=== PATIENT | female | born 1970 | race Hispanic/Latino ===

== ENCOUNTER 2017-12-19 18:41 | Inpatient (IN) | payer MEDICAID ==
[2017-12-19 18:41] VITALS: BMI 28.7
--- NOTE | 2017-12-19 19:27 | C.PDOC ---
History Of Present Illness 47 year old female, whose PMHx includes Hepatitis C, presents to the ED for evaluation of generalized myalgias, poor appetite, and generalized weakness which began around 1 month ago. Patient also reports a history of Diabetic Neuropathy and states she did not take her Neurontin today. She is also complaining of a sensation of pins and needles to her extremities and notes that her eyes are turning yellow. Patient denies fever, chills, vomiting, hematemesis, bright red blood per rectum, increased bruising. Chief Complaint (Nursing): Weakness/Neurological Deficit History Per: Patient History/Exam Limitations: no limitations Onset/Duration Of Symptoms: Other (1 month ) Current Symptoms Are (Timing): Still Present Additional History Per: Patient Past Medical History Reviewed: Historical Data, Nursing Documentation, Vital Signs Vital Signs: Last Vital Signs Temp 98.4 F 12/20/17 02:45 Pulse 103 H 12/20/17 02:45 Resp 20 12/20/17 02:45 BP 95/56 L 12/20/17 02:45 Pulse Ox 100 12/20/17 01:03 - Medical History PMH: Diabetes, Hepatitis (C) Denies: HIV, Chronic Kidney Disease Surgical History: Cholecystectomy - [facility] Procedures INCIS PERIANAL ABSCESS (04/12/15) VACCINATION NEC (04/12/15) Family History: States: Unknown Family Hx - Social History Hx Alcohol Use: No Hx Substance Use: No - Immunization History Hx Tetanus Toxoid Vaccination: No Hx Influenza Vaccination: No Hx Pneumococcal Vaccination: No Review Of Systems Constitutional: Positive for: Other (loss of appetite) Eyes: Positive for: Other (turning yellow ) Gastrointestinal: Negative for: Vomiting, Hematemesis, Other (bright red blood per rectum ) Musculoskeletal: Positive for: Other (generalized myalgias ) Neurological: Positive for: Other (pins and needles sensation to bilateral extremities ) Physical Exam - Physical Exam Appears: Non-toxic, No Acute Distress Skin: Normal Color, Warm, Dry, No Cyanotic Head: Atraumatic, Normacephalic Eye(s): bilateral: Scleral Icterus Oral Mucosa: Moist Neck: Supple Chest: Symmetrical, No Deformity, No Tenderness Cardiovascular: Rhythm Regular, No Murmur, No JVD, Other (S1 and S2 within normal limits ) Respiratory: Normal Breath Sounds, No Rales, No Rhonchi, No Wheezing Gastrointestinal/Abdominal: Soft, Tenderness (vague, diffuse to upper abdomen ) , No Guarding, No Rebound, No Ascites, No Other (organomegaly ) Extremity: Normal ROM, Capillary Refill (less than 2 seconds ), Other (no edema or clubbing to extremities) Neurological/Psych: Oriented x3, Normal Speech, Normal Cognition, Normal Cranial Nerves (2-12), Other (nonfocal sensorimotor exam is unremarkable ) Additional Physical Exam Comments: [place] coma scale score: 15 ED Course And Treatment - Laboratory Results Result Diagrams: 12/19/17 19:47 12/19/17 21:26 O2 Sat by Pulse Oximetry: 100 (on RA ) Pulse Ox Interpretation: Normal - CT Scan/US CT abdomen/pelvis Other Rad Studies (CT/US): Read By Radiologist, Radiology Report Reviewed CT/US Interpretation: FINDINGS: Lower thorax: Small hiatal hernia. Subsegmental atelectasis at lung bases. ABDOMEN: Liver: Unremarkable. No mass. Gallbladder and bile ducts: Cholecystectomy. Pneumobilia. No ductal dilation. Pancreas: Unremarkable. No mass. No ductal dilation. Spleen: Unremarkable. No splenomegaly. Adrenals: Unremarkable. No mass. Kidneys and ureters: Unremarkable. No solid mass. No hydronephrosis. Stomach and bowel: Unremarkable. No obstruction. Appendix: No findings to suggest acute appendicitis. PELVIS: Bladder: Unremarkable. No mass. Reproductive: 10.3 x 7.4 CM fat containing mass right adnexa, probable ovarian dermoid. Ovarian. lesions of this size are susceptible to torsion. ABDOMEN and PELVIS: Intraperitoneal space: Unremarkable. No free air. No significant fluid collection. Bones/joints: No acute fracture. No dislocation. Soft tissues: Unremarkable. Vasculature: Atherosclerotic vascular disease. No abdominal aortic aneurysm. Lymph nodes: Unremarkable. No enlarged lymph nodes. IMPRESSION: 1. 10.3 x 7.4 CM fat containing mass right adnexa, probable ovarian dermoid. Ovarian lesions of this. size are susceptible to torsion. 2. Cholecystectomy. 3. Pneumobilia. 4. Remainder of findings as above. Thank you for allowing us to participate in the care of your patient. Dictated and Authenticated by: Wilmer Ayon MD. 12/20/2017 12:03 AM Eastern Time ([place] & [place]) - Physician Consult Information Time Consulting Physician Contacted: 23:50 Physician Contacted: Jacklyn Gordon Outcome Of Conversation: patient accepted for admission for pancreatitis and hep C Medical Decision Making Medical Decision Making: Impression: 47 y/o female with chronic hepatitis Plan: * Bloodwork * Neurontin PO * reassess and disposition 22:15 Labs reviewed: Lipase 1170, elevated LFTs and alk phos, Glucose [address] Abodmen/Pelvis Administered IV insulin 23:55 Urine shows (+) leuks, WBC, RBC, yeast Administered IV Rocephin Workup reveals 3 issues.Poorly controled NIDDM, pancreatitis ,UTI and chronic hep C.Will admit Disposition Counseled Patient/Family Regarding: Studies Performed, Diagnosis - Disposition Disposition: HOSPITALIZED Disposition Time: 23:50 Condition: FAIR - POA Present On Arrival: None - Clinical Impression Clinical Impression: Pancreatitis, UTI (urinary tract infection), Hepatitis C - Scribe Statement The provider has reviewed the documentation as recorded by the Scribe (Mary Thomas) Provider Attestation: All medical record entries made by the Scribe were at my direction and personally dictated by me. I have reviewed the chart and agree that the record accurately reflects my personal performance of the history, physical exam, medical decision making, and the department course for this patient. I have also personally directed, reviewed, and agree with the discharge instructions and disposition. Decision To Admit - Pt Status Changed To: Hospital Disposition Of: Inpatient - Admit Certification Admit to Inpatient:: After my assessment, the patient will require hospitalization for at least two midnights. This is because of the severity of symptoms shown, intensity of services needed, and/or the medical risk in this patient being treated as an outpatient. - InPatient: Physician Admission Certification: I certify that this patient requires 2 or more midnights of care for the following reason:: Pancreatitis, Hep C - . Bed Request Type: Regular Patient Diagnosis: Pancreatitis, UTI (urinary tract infection), Hepatitis C
[2017-12-19 19:58] LABS: BASO # 0.1 K/uL (0.0-0.2); EOS # 0.1 K/uL (0.0-0.7); EOS % 1.4 % (0.0-4.0); HEMOGLOBIN 13.9 g/dL (11.0-16.0); LYMPH # 1.8 K/uL (1.0-4.3); LYMPH % 24.7 % (20.0-40.0); MEAN CELL VOLUME 88.6 fL (81.0-99.0); MEAN CORPUSCULAR HEMOGLOBIN 29.1 pg (27.0-31.0); MEAN CORPUSCULAR HGB CONC 32.9 g/dL (33.0-37.0); MEAN PLATELET VOLUME 11.7 fL (7.2-11.7); MONO # 0.6 K/uL (0.0-0.8); MONO % 7.8 % (0.0-10.0); NEUT # 4.7 K/uL (1.8-7.0); NEUT % 64.1 % (50.0-75.0); NRBC % 0.1 % (0.0-2.0); RBC 4.77 Mil/uL (3.80-5.20); WHITE BLOOD COUNT 7.4 K/uL (4.8-10.8)
[2017-12-19 20:36] LABS: INR 0.9; PROTHROMBIN TIME 10.5 SECONDS (9.7-12.2)
[2017-12-19] MEDS ORDERED: Morphine 4 MG/ML VIAL IV ONE (21:42)
[2017-12-19 21:45] LABS: ALB/GLOB RATIO 0.8 (1.0-2.1); ALBUMIN 3.4 g/dL (3.5-5.0); ALT/SGPT 703 U/L (9-52); BLOOD UREA NITROGEN 15 mg/dL (7-17); CALCIUM 8.7 mg/dl (8.6-10.4); GFR AFRICAN-AMERICAN > 60; GFR NON-AFRICAN AMERICAN > 60; LIPASE 1170 U/L (23-300)
[2017-12-19] MEDS ORDERED: Morphine 4 MG/ML VIAL ONE (21:50)
[2017-12-19 21:55] LABS: AST/SGOT 753 U/L (14-36)
[2017-12-19] MEDS ORDERED: (Novolin R) Insulin Human Regular 100 units/ml vial IV ONE (22:02)
[2017-12-19] MEDS ORDERED: (Novolin R) Insulin Human Regular 100 units/ml vial ONE (22:06)
[2017-12-19] MEDS ORDERED: Iohexol 350mg/ml 100 ML ONE (22:50)
[2017-12-19 23:10] LABS: HCG,QUALITATIVE URINE NEGATIVE (NEGATIVE)
[2017-12-19 23:21] LABS: SQUAMOUS EPITHIAL 11 /hpf (0-5); URINE BILIRUBIN NEGATIVE (NEGATIVE); URINE BLOOD 1+ (NEGATIVE); URINE CLARITY Turbid (Clear); URINE COLOR Amber (YELLOW); URINE GLUCOSE (UA) 3+ mg/dL (Normal); URINE LEUKOCYTE ESTERASE 3+ Leu/uL (Negative); URINE PROTEIN 1+ mg/dL (NEGATIVE)
[2017-12-19] MEDS ORDERED: cefTRIAXone IV 1 gm in Dextros 50 ML IVPB ONE (23:54)
--- NOTE | 2017-12-20 00:04 | CT ---
EXAM: CT Abdomen and Pelvis With Intravenous Contrast CLINICAL HISTORY: 47 years old, female; Pain; Abdominal pain; Prior surgery; Patient HX: 04-12-15 prior sent TECHNIQUE: Axial computed tomography images of the abdomen and pelvis with intravenous contrast. All CT scans at this facility use one or more dose reduction techniques, viz.: automated exposure control; ma/kV adjustment per patient size (including targeted exams where dose is matched to indication; i.e. head); or iterative reconstruction technique. Coronal and sagittal reformatted images were created and reviewed. CONTRAST: 100 mL of [id number] administered intravenously. COMPARISON: No relevant prior studies available. FINDINGS: Lower thorax: Small hiatal hernia. Subsegmental atelectasis at lung bases. ABDOMEN: Liver: Unremarkable. No mass. Gallbladder and bile ducts: Cholecystectomy. Pneumobilia. No ductal dilation. Pancreas: Unremarkable. No mass. No ductal dilation. Spleen: Unremarkable. No splenomegaly. Adrenals: Unremarkable. No mass. Kidneys and ureters: Unremarkable. No solid mass. No hydronephrosis. Stomach and bowel: Unremarkable. No obstruction. Appendix: No findings to suggest acute appendicitis. PELVIS: Bladder: Unremarkable. No mass. Reproductive: 10.3 x 7.4 CM fat containing mass right adnexa, probable ovarian dermoid. Ovarian lesions of this size are susceptible to torsion. ABDOMEN and PELVIS: Intraperitoneal space: Unremarkable. No free air. No significant fluid collection. Bones/joints: No acute fracture. No dislocation. Soft tissues: Unremarkable. Vasculature: Atherosclerotic vascular disease. No abdominal aortic aneurysm. Lymph nodes: Unremarkable. No enlarged lymph nodes. IMPRESSION: 1. 10.3 x 7.4 CM fat containing mass right adnexa, probable ovarian dermoid. Ovarian lesions of this size are susceptible to torsion. 2. Cholecystectomy. 3. Pneumobilia. 4. Remainder of findings as above.
[2017-12-20] MEDS ORDERED: Sodium Chloride 0.9% 1,000 ML IV SCH ×2 (02:30→08:05)
[2017-12-20 02:46] VITALS: RESP 20
[2017-12-20] MEDS: (Novolog) Insulin Aspart, Recombinant 100 u/ml 10 ml vial SC SCH ×4 (07:30→21:38)
[2017-12-20 08:05] LABS: HEMOGLOBIN 12.3 g/dL (11.0-16.0); MEAN CELL VOLUME 87.8 fL (81.0-99.0); MEAN CORPUSCULAR HEMOGLOBIN 29.7 pg (27.0-31.0); MEAN CORPUSCULAR HGB CONC 33.9 g/dL (33.0-37.0); MEAN PLATELET VOLUME 11.5 fL (7.2-11.7); RBC 4.13 Mil/uL (3.80-5.20); RED CELL DISTRIBUTION WIDTH 15.9 % (11.5-14.5); WHITE BLOOD COUNT 6.9 K/uL (4.8-10.8)
[2017-12-20 08:43] LABS: ALB/GLOB RATIO 0.8 (1.0-2.1); ALBUMIN 2.9 g/dL (3.5-5.0); ALT/SGPT 598 U/L (9-52); AMYLASE 137 U/L (30-110); AST/SGOT 706 U/L (14-36); BLOOD UREA NITROGEN 17 mg/dL (7-17); CALCIUM 7.8 mg/dl (8.6-10.4); GFR AFRICAN-AMERICAN > 60; GFR NON-AFRICAN AMERICAN > 60; LIPASE 674 U/L (23-300)
[2017-12-20 09:41] LABS: LYMPH # 2.1 K/uL (1.0-4.3); MONO # 0.4 K/uL (0.0-0.8); NEUT # 4.2 K/uL (1.8-7.0)
[2017-12-20 09:42] LABS: BASO # 0.1 K/uL (0.0-0.2); EOS # 0.2 K/uL (0.0-0.7)
--- NOTE | 2017-12-20 10:34 | CP.PCM.CON ---
<Kanchan Thomas - Last Filed: 12/20/17 12:59> History of Present Illness - History of Present Illness History of Present Illness: PGY4 Initial GI Consult Note Sierra Schroeder is a 47F w/ hx of fibromyalgia, Hep C?, Lap Radha, and DM who presented to the ED with complaints of abd pain. Pt states that her pain started 1 month prior and had progressively worsened. She had a decreased appetite. She noted loosing 10lbs in the last few months. She also started to notice that her eyes and skin were turning yellow. She notes that her abd pain is generalize and diffuse. She states that her pain was 10 out of 10 yesterday. She denies any fever, chills or diaphoresis. Some aggravating factors include food, but she denies any alleviating factors. She has a hx of chronic constipation and states that she has a BM every 1 week. Her last BM was 3 days ago. Denies any blood or melena. She notes that she previously had jaundice 15 years ago due to choledocalithiasis and subsequently had ERCP and Lap radha. She notes also being admitted again for jaundice for Hep C?. she was referred to the [facility] for liver eval and was deemed not to have active hep C (as per pt). PMHx: DM, Fibromyalgia, Hep C?, PSHx: Lap Radha Social hx: denies any illicit drugs or etoh use; + 1/2 PPD for 10+ years Family hx: Aunt colon cancer 80, CAD, DM Endo hx: ERCP? ROS: 12 point ROS conducted, neg other than above Past Patient History - Past Medical History & Family History Past Medical History?: Yes - Past Social History Smoking Status: Light Smoker < 10 Cigarettes Daily - CARDIAC Hx Cardiac Disorders: No - PULMONARY Hx Respiratory Disorders: No - NEUROLOGICAL Hx Neurological Disorder: Yes (Pt reports she sees a neurologist for 'chronic pain') - HEENT Hx HEENT Problems: No - RENAL Hx Chronic Kidney Disease: No - ENDOCRINE/METABOLIC Hx Diabetes Mellitus Type 2: Yes - HEMATOLOGICAL/ONCOLOGICAL Hx Human Immunodeficiency Virus (HIV): No - INTEGUMENTARY Hx Dermatological Problems: No - MUSCULOSKELETAL/RHEUMATOLOGICAL Hx Musculoskeletal Disorders: No Hx Falls: Yes - GASTROINTESTINAL Hx Gastrointestinal Disorders: No - GENITOURINARY/GYNECOLOGICAL Hx Genitourinary Disorders: No Other/Comment: fibroids - PSYCHIATRIC Hx Substance Use: No - SURGICAL HISTORY Hx Cholecystectomy: Yes - ANESTHESIA Hx Anesthesia: Yes Hx Anesthesia Reactions: No Hx Malignant Hyperthermia: No Meds Allergies/Adverse Reactions: Allergies Allergy/AdvReac Type Severity Reaction Status Date / Time hydromorphone [From Dilaudid] Allergy SHORTNESS Verified 12/19/17 18:53 OF BREATH - Medications Medications: Current Medications Gabapentin (Neurontin) 1,800 mg PO TID [facility] Sodium Chloride (Sodium Chloride 0.9%) 1,000 mls @ 80 mls/hr IV .[id number] [facility] Insulin Aspart (Novolog) 0 unit SC ACHS EDMUND PRN Reason: Protocol Morphine Sulfate (Morphine) 0.5 mg IVP Q4 PRN PRN Reason: Pain, moderate (4-7) Last Admin: 12/20/17 02:35 Dose: 0.5 mg Pantoprazole Sodium (Protonix Inj) 40 mg IVP DAILY EDMUND Physical Exam - Constitutional Appears: Well, No Acute Distress - Head Exam Head Exam: ATRAUMATIC, NORMOCEPHALIC - Eye Exam Eye Exam: Scleral icterus - ENT Exam ENT Exam: Mucous Membranes Moist, Normal Exam - Neck Exam Neck exam: Positive for: Normal Inspection - Respiratory Exam Respiratory Exam: Clear to Auscultation Bilateral, NORMAL BREATHING PATTERN. absent: Rales, Rhonchi, Wheezes, Respiratory Distress - Cardiovascular Exam Cardiovascular Exam: REGULAR RHYTHM, +S1, +S2 - GI/Abdominal Exam GI & Abdominal Exam: Normal Bowel Sounds, Soft, Tenderness. absent: Distended, Firm, Guarding, Hernia - Extremities Exam Extremities exam: Negative for: joint swelling, pedal edema - Neurological Exam Neurological exam: Alert, Oriented x3 - Psychiatric Exam Psychiatric exam: Normal Affect, Normal Mood - Skin Additional comments: juandiced Results - Vital Signs Recent Vital Signs: Last Vital Signs Temp 98.6 F 12/20/17 08:01 Pulse 103 H 12/20/17 08:01 Resp 20 12/20/17 08:01 BP 98/61 L 12/20/17 08:01 Pulse Ox 97 12/20/17 08:01 - Labs Result Diagrams: 12/20/17 07:20 12/20/17 07:20 Labs: Laboratory Results - last 24 hr 12/19/17 12/19/17 12/19/17 19:47 19:47 20:20 WBC 7.4 RBC 4.77 Hgb 13.9 Hct 42.3 MCV 88.6 MCH 29.1 MCHC 32.9 L RDW 16.0 H Plt Count 160 MPV 11.7 Neut % (Auto) 64.1 Lymph % (Auto) 24.7 [place] % (Auto) 7.8 Eos % (Auto) 1.4 Baso % (Auto) 2.0 Neut # (Auto) 4.7 Lymph # (Auto) 1.8 [place] # (Auto) 0.6 Eos # (Auto) 0.1 Baso # (Auto) 0.1 PT 10.5 INR 0.9 APTT 35 H Sodium Potassium Chloride Carbon Dioxide Anion Gap BUN Creatinine Est GFR ( Amer) Est GFR (Non-Af Amer) POC Glucose (mg/dL) Random Glucose Calcium Total Bilirubin AST ALT Alkaline Phosphatase Ammonia 38 H Total Protein Albumin Globulin Albumin/Globulin Ratio Amylase Lipase Urine Color Urine Clarity Urine pH Ur Specific Lorenzo Urine Protein Urine Glucose (UA) Urine Ketones Urine Blood Urine Nitrate Urine Bilirubin Urine Urobilinogen Ur Leukocyte Esterase Urine WBC (Auto) Urine RBC (Auto) Ur Squamous Epith Cells Urine Yeast (Budding) Urine HCG, Qual 12/19/17 12/19/17 12/19/17 21:26 23:06 23:12 WBC RBC Hgb Hct MCV MCH MCHC RDW Plt Count MPV Neut % (Auto) Lymph % (Auto) [place] % (Auto) Eos % (Auto) Baso % (Auto) Neut # (Auto) Lymph # (Auto) [place] # (Auto) Eos # (Auto) Baso # (Auto) PT INR APTT Sodium 136 Potassium 4.1 Chloride 97 L Carbon Dioxide 24 Anion Gap 19 BUN 15 Creatinine 0.7 Est GFR ( Amer) > 60 Est GFR (Non-Af Amer) > 60 POC Glucose (mg/dL) 181 H Random Glucose 400 H* Calcium 8.7 Total Bilirubin 7.7 H AST 753 H ALT 703 H Alkaline Phosphatase 707 H Ammonia Total Protein 7.6 Albumin 3.4 L Globulin 4.2 H Albumin/Globulin Ratio 0.8 L Amylase Lipase 1170 H Urine Color Jeanne Urine Clarity Turbid Urine pH 5.0 Ur Specific Lorenzo 1.025 Urine Protein 1+ H Urine Glucose (UA) 3+ H Urine Ketones Negative Urine Blood 1+ H Urine Nitrate Negative Urine Bilirubin Negative Urine Urobilinogen 4.0 H Ur Leukocyte Esterase 3+ H Urine WBC (Auto) 1050 H Urine RBC (Auto) 903 H Ur Squamous Epith Cells 11 H Urine Yeast (Budding) Many H Urine HCG, Qual Negative 12/20/17 12/20/17 12/20/17 05:43 07:20 07:20 WBC 6.9 RBC 4.13 Hgb 12.3 Hct 36.2 MCV 87.8 MCH 29.7 MCHC 33.9 RDW 15.9 H Plt Count 146 MPV 11.5 Neut % (Auto) 61.0 Lymph % (Auto) 30.0 [place] % (Auto) 5.0 Eos % (Auto) 3.0 Baso % (Auto) 1.0 Neut # (Auto) 4.2 Lymph # (Auto) 2.1 [place] # (Auto) 0.4 Eos # (Auto) 0.2 Baso # (Auto) 0.1 PT INR APTT Sodium 141 Potassium 3.9 Chloride 104 Carbon Dioxide 19 L Anion Gap 21 H BUN 17 Creatinine 0.6 L Est GFR ( Amer) > 60 Est GFR (Non-Af Amer) > 60 POC Glucose (mg/dL) 133 H Random Glucose 120 H Calcium 7.8 L Total Bilirubin 6.3 H AST 706 H ALT 598 H Alkaline Phosphatase 551 H D Ammonia Total Protein 6.4 Albumin 2.9 L Globulin 3.5 Albumin/Globulin Ratio 0.8 L Amylase 137 H Lipase 674 H Urine Color Urine Clarity Urine pH Ur Specific Lorenzo Urine Protein Urine Glucose (UA) Urine Ketones Urine Blood Urine Nitrate Urine Bilirubin Urine Urobilinogen Ur Leukocyte Esterase Urine WBC (Auto) Urine RBC (Auto) Ur Squamous Epith Cells Urine Yeast (Budding) Urine HCG, Qual Assessment & Plan - Assessment and Plan (Free Text) Assessment: Alexandre Esquivel is a 47F w/ hx of Hep c?, fibromyalgia, DM who presents to the ER with complaints of abd pain and jaundice Acute Pancreatitis, r/o TG, IGG4, gallstone Abd pain Juandice Elevated LFTS, etiology unknown; r/o viral, autoimmune, CBD stone, pancreatic lesion Constipation Plan: -CT reviewed and did not reveal and pancreatic lesions -will get an MRCP -Will send for viral hepatitis, autoimmune markers -NPO for now -EUS/ERCP today -continue IV fluids -start on miralax BID -will continue to follow -will get TG, igg4 -start fluids at 200ml/hr -pain management as per primary team D/W Dr. De La O <Tawanda De La O - Last Filed: 12/20/17 16:15> Meds - Medications Medications: Current Medications Gabapentin (Neurontin) 1,600 mg PO BID EDMUND Sodium Chloride (Sodium Chloride 0.9%) 1,000 mls @ 80 mls/hr IV .[id number] EDMUND Lactated Ringer's (Lactated Ringer's) 1,000 mls @ 200 mls/hr IV .Q5H EDMUND Insulin Aspart (Novolog) 0 unit SC ACHS EDMUND PRN Reason: Protocol Morphine Sulfate (Morphine) 0.5 mg IVP Q4 PRN PRN Reason: Pain, moderate (4-7) Last Admin: 12/20/17 11:02 Dose: 0.5 mg Morphine Sulfate (Morphine) 1 mg IVP Q10M PRN PRN Reason: Pain, moderate (4-7) Stop: 12/20/17 16:42 Last Admin: 12/20/17 15:00 Dose: 1 mg Ondansetron HCl (Zofran Inj) 4 mg IVP ONCE PRN PRN Reason: Nausea/Vomiting Stop: 12/20/17 16:42 Last Admin: 12/20/17 15:01 Dose: 4 mg Pantoprazole Sodium (Protonix Inj) 40 mg IVP DAILY [facility] Last Admin: 12/20/17 10:50 Dose: 40 mg Results - Vital Signs Recent Vital Signs: Last Vital Signs Temp 97.8 F 12/20/17 15:00 Pulse 131 H 12/20/17 15:35 Resp 20 12/20/17 15:35 BP 118/64 12/20/17 15:35 Pulse Ox 99 12/20/17 15:35 - Labs Result Diagrams: 12/20/17 07:20 12/20/17 07:20 Labs: Laboratory Results - last 24 hr 12/19/17 12/19/17 12/19/17 19:47 19:47 20:20 WBC 7.4 RBC 4.77 Hgb 13.9 Hct 42.3 MCV 88.6 MCH 29.1 MCHC 32.9 L RDW 16.0 H Plt Count 160 MPV 11.7 Neut % (Auto) 64.1 Lymph % (Auto) 24.7 [place] % (Auto) 7.8 Eos % (Auto) 1.4 Baso % (Auto) 2.0 Neut # (Auto) 4.7 Lymph # (Auto) 1.8 [place] # (Auto) 0.6 Eos # (Auto) 0.1 Baso # (Auto) 0.1 PT 10.5 INR 0.9 APTT 35 H Sodium Potassium Chloride Carbon Dioxide Anion Gap BUN Creatinine Est GFR ( Amer) Est GFR (Non-Af Amer) POC Glucose (mg/dL) Random Glucose Calcium Total Bilirubin AST ALT Alkaline Phosphatase Ammonia 38 H Total Protein Albumin Globulin Albumin/Globulin Ratio Amylase Lipase Urine Color Urine Clarity Urine pH Ur Specific Lorenzo Urine Protein Urine Glucose (UA) Urine Ketones Urine Blood Urine Nitrate Urine Bilirubin Urine Urobilinogen Ur Leukocyte Esterase Urine WBC (Auto) Urine RBC (Auto) Ur Squamous Epith Cells Urine Yeast (Budding) Urine HCG, Qual IgG Hepatitis A IgM Ab Hep Bs Antigen Hep B Core IgM Ab Hepatitis C Antibody 12/19/17 12/19/17 12/19/17 21:26 23:06 23:12 WBC RBC Hgb Hct MCV MCH MCHC RDW Plt Count MPV Neut % (Auto) Lymph % (Auto) [place] % (Auto) Eos % (Auto) Baso % (Auto) Neut # (Auto) Lymph # (Auto) [place] # (Auto) Eos # (Auto) Baso # (Auto) PT INR APTT Sodium 136 Potassium 4.1 Chloride 97 L Carbon Dioxide 24 Anion Gap 19 BUN 15 Creatinine 0.7 Est GFR ( Amer) > 60 Est GFR (Non-Af Amer) > 60 POC Glucose (mg/dL) 181 H Random Glucose 400 H* Calcium 8.7 Total Bilirubin 7.7 H AST 753 H ALT 703 H Alkaline Phosphatase 707 H Ammonia Total Protein 7.6 Albumin 3.4 L Globulin 4.2 H Albumin/Globulin Ratio 0.8 L Amylase Lipase 1170 H Urine Color Jeanne Urine Clarity Turbid Urine pH 5.0 Ur Specific Lorenzo 1.025 Urine Protein 1+ H Urine Glucose (UA) 3+ H Urine Ketones Negative Urine Blood 1+ H Urine Nitrate Negative Urine Bilirubin Negative Urine Urobilinogen 4.0 H Ur Leukocyte Esterase 3+ H Urine WBC (Auto) 1050 H Urine RBC (Auto) 903 H Ur Squamous Epith Cells 11 H Urine Yeast (Budding) Many H Urine HCG, Qual Negative IgG Hepatitis A IgM Ab Hep Bs Antigen Hep B Core IgM Ab Hepatitis C Antibody 12/20/17 12/20/17 12/20/17 05:43 07:20 07:20 WBC 6.9 RBC 4.13 Hgb 12.3 Hct 36.2 MCV 87.8 MCH 29.7 MCHC 33.9 RDW 15.9 H Plt Count 146 MPV 11.5 Neut % (Auto) 61.0 Lymph % (Auto) 30.0 [place] % (Auto) 5.0 Eos % (Auto) 3.0 Baso % (Auto) 1.0 Neut # (Auto) 4.2 Lymph # (Auto) 2.1 [place] # (Auto) 0.4 Eos # (Auto) 0.2 Baso # (Auto) 0.1 PT INR APTT Sodium 141 Potassium 3.9 Chloride 104 Carbon Dioxide 19 L Anion Gap 21 H BUN 17 Creatinine 0.6 L Est GFR ( Amer) > 60 Est GFR (Non-Af Amer) > 60 POC Glucose (mg/dL) 133 H Random Glucose 120 H Calcium 7.8 L Total Bilirubin 6.3 H AST 706 H ALT 598 H Alkaline Phosphatase 551 H D Ammonia Total Protein 6.4 Albumin 2.9 L Globulin 3.5 Albumin/Globulin Ratio 0.8 L Amylase 137 H Lipase 674 H Urine Color Urine Clarity Urine pH Ur Specific Lorenzo Urine Protein Urine Glucose (UA) Urine Ketones Urine Blood Urine Nitrate Urine Bilirubin Urine Urobilinogen Ur Leukocyte Esterase Urine WBC (Auto) Urine RBC (Auto) Ur Squamous Epith Cells Urine Yeast (Budding) Urine HCG, Qual IgG Hepatitis A IgM Ab Hep Bs Antigen Hep B Core IgM Ab Hepatitis C Antibody 12/20/17 12/20/17 12/20/17 09:55 10:47 10:47 WBC RBC Hgb Hct MCV MCH MCHC RDW Plt Count MPV Neut % (Auto) Lymph % (Auto) [place] % (Auto) Eos % (Auto) Baso % (Auto) Neut # (Auto) Lymph # (Auto) [place] # (Auto) Eos # (Auto) Baso # (Auto) PT INR APTT Sodium Potassium Chloride Carbon Dioxide Anion Gap BUN Creatinine Est GFR ( Amer) Est GFR (Non-Af Amer) POC Glucose (mg/dL) Random Glucose Calcium Total Bilirubin AST ALT Alkaline Phosphatase Ammonia Total Protein Albumin Globulin Albumin/Globulin Ratio Amylase Lipase Urine Color Urine Clarity Urine pH Ur Specific Lorenzo Urine Protein Urine Glucose (UA) Urine Ketones Urine Blood Urine Nitrate Urine Bilirubin Urine Urobilinogen Ur Leukocyte Esterase Urine WBC (Auto) Urine RBC (Auto) Ur Squamous Epith Cells Urine Yeast (Budding) Urine HCG, Qual IgG 1375.8 Hepatitis A IgM Ab Negative Hep Bs Antigen Negative Hep B Core IgM Ab Negative Negative Hepatitis C Antibody Reactive 12/20/17 11:03 WBC RBC Hgb Hct MCV MCH MCHC RDW Plt Count MPV Neut % (Auto) Lymph % (Auto) [place] % (Auto) Eos % (Auto) Baso % (Auto) Neut # (Auto) Lymph # (Auto) [place] # (Auto) Eos # (Auto) Baso # (Auto) PT INR APTT Sodium Potassium Chloride Carbon Dioxide Anion Gap BUN Creatinine Est GFR ( Amer) Est GFR (Non-Af Amer) POC Glucose (mg/dL) 126 H Random Glucose Calcium Total Bilirubin AST ALT Alkaline Phosphatase Ammonia Total Protein Albumin Globulin Albumin/Globulin Ratio Amylase Lipase Urine Color Urine Clarity Urine pH Ur Specific Lorenzo Urine Protein Urine Glucose (UA) Urine Ketones Urine Blood Urine Nitrate Urine Bilirubin Urine Urobilinogen Ur Leukocyte Esterase Urine WBC (Auto) Urine RBC (Auto) Ur Squamous Epith Cells Urine Yeast (Budding) Urine HCG, Qual IgG Hepatitis A IgM Ab Hep Bs Antigen Hep B Core IgM Ab Hepatitis C Antibody Attending/Attestation - Attestation I have personally seen and examined this patient.: Yes I have fully participated in the care of the patient.: Yes I have reviewed all pertinent clinical information: Yes Notes (Text): 12/20/17 12:14 47 year old female with h/o hep c, gallstones, cholecystectomy, ercp admitted with abdominal pain, jaundice. recommend egd/eus/ercp today. recommend aggressive iv hydration for acute pancreatitis. eval for chronic liver disease as well.
[2017-12-20 11:41] LABS: HEPATITIS B SURFACE AG Negative (NEGATIVE)
[2017-12-20 11:46] LABS: HEPATITIS A IGM NEGATIVE (NEGATIVE); HEPATITIS B CORE AB NEGATIVE (NEGATIVE)
[2017-12-20] MEDS ORDERED: Simethicone 40 mg/0.6 ml Liquid (30 ml) ONE (13:11)
[2017-12-20] MEDS ORDERED: Glucagon Recombinant 1 mg Inj ONE ×3 (13:11→13:15)
[2017-12-20] MEDS ORDERED: Iohexol 240 (50 ml) ONE (13:13)
[2017-12-20] MEDS ORDERED: Indomethacin 50 MG Suppository PR ONE (13:14)
[2017-12-20 13:29] LABS: HEPATITIS C ANTIBODY REACTIVE (NEGATIVE)
[2017-12-20] MEDS ORDERED: Lactated Ringer's 1,000 ML IV ONE (13:45)
[2017-12-20] MEDS ORDERED: Propofol 10 mg/ml Inj (20 ML) ONE (13:50)
[2017-12-20] MEDS ORDERED: Midazolam 2 MG/2 ML VIAL ONE (13:51)
[2017-12-20] MEDS ORDERED: CEFTRIAXONE IVPB ONE (14:14)
[2017-12-20] MEDS ORDERED: Rocuronium 10 mg/ml (5 ml) ONE (14:22)
[2017-12-20] MEDS ORDERED: Succinylcholine Chloride 20 mg/ml Syr (5 ml) IV ONE (14:22)
--- NOTE | 2017-12-20 15:29 | CP.PCM.CON ---
History of Present Illness - History of Present Illness History of Present Illness: went for endoscopy tolerated well c/o abd pain afebrile at present work up in progress 47F w/ hx of fibromyalgia, Hep C?, Lap Radha, and DM who presented to the ED with complaints of abd pain. Pt states that her pain started 1 month prior and had progressively worsened. She had a decreased appetite. She noted loosing 10lbs in the last few months. She also started to notice that her eyes and skin were turning yellow. She notes that her abd pain is generalize and diffuse. PMHx: DM, Fibromyalgia, Hep C?, PSHx: Lap Radha Social hx: denies any illicit drugs or etoh use; + 1/2 PPD for 10+ years Family hx: Aunt colon cancer 80, CAD, DM Endo hx: ERCP? ' Review of Systems - Constitutional Constitutional: As Per HPI - EENT Eyes: absent: As Per HPI, Blind Spots, Blurred Vision, Change in Vision, Decreased Night Vision, Diplopia, Discharge, Dry Eye, Exophthalmos, Floaters, Irritation, Itchy Eyes, Loss of Peripheral Vision, Pain, Photophobia, Requires Corrective Lenses, Sees Flashes, Spots in Vision, Tunnel Vision, Other Visual Disturbances, Loss of Vision, Other Ears: absent: As Per HPI, Decreased Hearing, Ear Discharge, Ear Pain, Tinnitus, Abnormal Hearing, Disequilibrium, Dizziness, Other Nose/Mouth/Throat: absent: As Per HPI, Epistaxis, Nasal Congestion, Nasal Discharge, Nasal Obstruction, Nasal Trauma, Nose Pain, Post Nasal Drip, Sinus Pain, Sinus Pressure, Bleeding Gums, Change in Voice, Dental Pain, Dry Mouth, Dysphagia, Halitosis, Hoarsness, Lip Swelling, Mouth Lesions, Mouth Pain, Odynophagia, Sore Throat, Throat Swelling, Tongue Swelling, Facial Pain, Neck Pain, Neck Mass, Other - Breasts Breasts: absent: As Per HPI, Change in Shape, Mass, Pain, Nipple Discharge, Nipple Inversion, Skin Changes, Swelling, Other - Cardiovascular Cardiovascular: absent: As Per HPI, Acrocyanosis, Chest Pain, Chest Pain at Rest , Chest Pain with Activity, Claudication, Diaphoresis, Dyspnea, Dyspnea on Exertion, Edema, Irregular Heart Rhythm, Pain Radiating to Arm/Neck/Jaw, Leg Edema, Leg Ulcers, Lightheadedness, Orthopnea, Palpitations, Paroxysmal Nocturnal Dyspnea, Pedal Edema, Radiating Pain, Rapid Heart Rate, Slow Heart Rate, Syncope, Other - Respiratory Respiratory: absent: As Per HPI, Cough, Dyspnea, Hemoptysis, Dyspnea on Exertion , Wheezing, Snoring, Stridor, Pain on Inspiration, Chest Congestion, Excessive Mucous Production, Change in Mucous Color, Pain with Coughing, Other - Gastrointestinal Gastrointestinal: As Per HPI - Genitourinary Genitourinary: As Per HPI. absent: Change in Urinary Stream, Difficulty Urinating, Dysuria, Flank Pain, Hematuria, Pyuria, Nocturia, Urinary Incontinence, Urinary Frequency, Urinary Hesitance, Urinary Urgency, Voiding Freq/Small Amts, Freq UTI, Hx Renal/Bladder Calculi, Hx /Renal Surgery, Bladder Distension, Other - Reproductive: Female Reproductive:Female: absent: As Per HPI, Amenorrhea, Amenorrhea/ Control, Currently Menstual, Cycle <21 Days, Cycle >35 Days, Cycle Variable, Menses 1-7 Days, Menses >/= 8 Days, Menses Variable, Cycle > 4 Weeks Between, No Menses for 6 Months, Heavy Menses, Light Menses, Normal Menses, Spotting Between Cycles , S/P Hysterectomy, Menopausal, Post Menopausal, Premenarche, Abnormal Vaginal Bleeding, Dysmenorrhea, Dyspareunia, Genital Lesions, Genital Pruritis, Pelvic Pain, Prolapse Symptoms, Sexual Dysfunction, Vaginal Discharge, Vaginal Dryness , Vaginal Odor, Vaginal Pruritis, Other - Menstruation Menstruation: absent: As Per HPI, Amenorrhea, Amenorrhea/ Control, Currently Menstual, Cycle <21 Days, Cycle >35 Days, Cycle Variable, Menses 1-7 Days, Menses >/= 8 Days, Menses Variable, Cycle > 4 Weeks Between, No Menses for 6 Months, Heavy Menses, Light Menses, Normal Menses, Spotting Between Cycles , S/P Hysterectomy, Menopausal, Post Menopausal, Premenarche, Abnormal Vaginal Bleeding, Dysmenorrhea, Other - Musculoskeletal Musculoskeletal: absent: As Per HPI, Abnormal Gait, Arthralgias, Atrophy, Back Pain, Deformity, Joint Swelling, Limited Range of Motion, Loss of Height, Muscle Cramps, Muscle Weakness, Myalgias, Neck Pain, Numbness, Radiating Pain into Limb, Stiffness, Tingling, Other - Integumentary Integumentary: absent: As Per HPI, Acne, Alopecia, Bleeding Lesions, Change in Hair, Change in Nails, Change in Pigmentation, Changing Lesions, Dry Skin, Erythema, Furuncle, Hirsutism, Lesions, New Lesions, Non-Healing Lesions, Photosensitivity, Pruritus, Rash, Skin Pain, Skin Ulcer, Sores, Striae, Swelling , Unusual Bruising, Wounds, Jaundice, Other - Neurological Neurological: absent: As Per HPI, Abnormal Gait, Abnormal Hearing, Abnormal Movements, Abnormal Speech, Behavioral Changes, Burning Sensations, Confusion, Convulsions, Disequilibrium, Dizziness, Numbness, Focal Weakness, Frequent Falls , Headaches, Lack of Coordination, Loss of Vision, Memory Loss, Paresthesias, Radicular Pain, Restless Legs, Sensory Deficit, Syncope, Tingling, Tremor, Vertigo, Weakness, Other Visual Disturbances, Other - Psychiatric Psychiatric: absent: As Per HPI, Abnormal Sleep Pattern, Anhedonia, Anxiety, Auditory Hallucinations, Behavioral Changes, Change in Appetite, Change in Libido, Confusion, Depression, Difficulty Concentrating, Hallucinations, Homicidal Ideation, Hopelessness, Irritability, Memory Loss, Mood Swings, Panic Attacks, Paranoia, Suicidal Ideation, Visual Hallucinations, Tactile Hallucinations, Other - Endocrine Endocrine: absent: As Per HPI, Change in Body Appearance, Change in Libido, Cold Intolorance, Deepening of Voice, Excessive Sweating, Fatigue, Flushing, Heat Intolorance, Increase in Ring/Shoe/Hat Size, Palpitations, Polydipsia, Polyphagia, Polyuria, Other - Hematologic/Lymphatic Hematologic: absent: As Per HPI, Easy Bleeding, Easy Bruising, Lymphadenopathy, Other Past Patient History - Past Medical History & Family History Past Medical History?: Yes - Past Social History Smoking Status: Light Smoker < 10 Cigarettes Daily - CARDIAC Hx Cardiac Disorders: No - PULMONARY Hx Respiratory Disorders: No - NEUROLOGICAL Hx Neurological Disorder: Yes (Pt reports she sees a neurologist for 'chronic pain') - HEENT Hx HEENT Problems: No - RENAL Hx Chronic Kidney Disease: No - ENDOCRINE/METABOLIC Hx Diabetes Mellitus Type 2: Yes - HEMATOLOGICAL/ONCOLOGICAL Hx Human Immunodeficiency Virus (HIV): No - INTEGUMENTARY Hx Dermatological Problems: No - MUSCULOSKELETAL/RHEUMATOLOGICAL Hx Musculoskeletal Disorders: No Hx Falls: Yes - GASTROINTESTINAL Hx Gastrointestinal Disorders: No - GENITOURINARY/GYNECOLOGICAL Hx Genitourinary Disorders: No Other/Comment: fibroids - PSYCHIATRIC Hx Substance Use: No - SURGICAL HISTORY Hx Cholecystectomy: Yes - ANESTHESIA Hx Anesthesia: Yes Hx Anesthesia Reactions: No Hx Malignant Hyperthermia: No Meds Allergies/Adverse Reactions: Allergies Allergy/AdvReac Type Severity Reaction Status Date / Time hydromorphone [From Dilaudid] Allergy SHORTNESS Verified 12/19/17 18:53 OF BREATH - Medications Medications: Current Medications Gabapentin (Neurontin) 1,600 mg PO BID [facility] Sodium Chloride (Sodium Chloride 0.9%) 1,000 mls @ 80 mls/hr IV .[id number] Lactated Ringer's (Lactated Ringer's) 1,000 mls @ 200 mls/hr IV .Q5H [facility] Insulin Aspart (Novolog) 0 unit SC ACHS [facility]MUN[facility] PRN Reason: Protocol Morphine Sulfate (Morphine) 0.5 mg IVP Q4 PRN PRN Reason: Pain, moderate (4-7) Last Admin: 12/20/17 11:02 Dose: 0.5 mg Morphine Sulfate (Morphine) 1 mg IVP Q10M PRN PRN Reason: Pain, moderate (4-7) Stop: 12/20/17 16:42 Last Admin: 12/20/17 15:00 Dose: 1 mg Ondansetron HCl (Zofran Inj) 4 mg IVP ONCE PRN PRN Reason: Nausea/Vomiting Stop: 12/20/17 16:42 Last Admin: 12/20/17 15:01 Dose: 4 mg Pantoprazole Sodium (Protonix Inj) 40 mg IVP DAILY [facility] Last Admin: 12/20/17 10:50 Dose: 40 mg Physical Exam - Constitutional Appears: Chronically Ill - Head Exam Head Exam: NORMAL INSPECTION - Eye Exam Eye Exam: Scleral icterus - ENT Exam ENT Exam: Mucous Membranes Dry, Normal External Ear Exam, Normal Oropharynx - Neck Exam Neck exam: Negative for: Lymphadenopathy - Respiratory Exam Respiratory Exam: Decreased Breath Sounds, Rhonchi - Cardiovascular Exam Cardiovascular Exam: REGULAR RHYTHM, +S1, +S2 - GI/Abdominal Exam GI & Abdominal Exam: Diminished Bowel Sounds, Soft, Tenderness - Rectal Exam Rectal Exam: Deferred - Exam Exam: NORMAL INSPECTION - Extremities Exam Extremities exam: Positive for: pedal pulses present. Negative for: calf tenderness, pedal edema, tenderness - Back Exam Back exam: absent: CVA tenderness (L), CVA tenderness (R) - Neurological Exam Neurological exam: Alert, CN II-XII Intact, Oriented x3, Reflexes Normal - Psychiatric Exam Psychiatric exam: Normal Mood - Skin Skin Exam: Dry Results - Vital Signs Recent Vital Signs: Last Vital Signs Temp 98 F 12/20/17 14:35 Pulse 129 H 12/20/17 15:20 Resp 20 12/20/17 15:20 BP 119/65 12/20/17 15:20 Pulse Ox 99 12/20/17 15:20 - Labs Result Diagrams: 12/20/17 07:20 12/20/17 07:20 Labs: Laboratory Results - last 24 hr 12/19/17 12/19/17 12/19/17 19:47 19:47 20:20 WBC 7.4 RBC 4.77 Hgb 13.9 Hct 42.3 MCV 88.6 MCH 29.1 MCHC 32.9 L RDW 16.0 H Plt Count 160 MPV 11.7 Neut % (Auto) 64.1 Lymph % (Auto) 24.7 [place] % (Auto) 7.8 Eos % (Auto) 1.4 Baso % (Auto) 2.0 Neut # (Auto) 4.7 Lymph # (Auto) 1.8 [place] # (Auto) 0.6 Eos # (Auto) 0.1 Baso # (Auto) 0.1 PT 10.5 INR 0.9 APTT 35 H Sodium Potassium Chloride Carbon Dioxide Anion Gap BUN Creatinine Est GFR ( Amer) Est GFR (Non-Af Amer) POC Glucose (mg/dL) Random Glucose Calcium Total Bilirubin AST ALT Alkaline Phosphatase Ammonia 38 H Total Protein Albumin Globulin Albumin/Globulin Ratio Amylase Lipase Urine Color Urine Clarity Urine pH Ur Specific [place] Urine Protein Urine Glucose (UA) Urine Ketones Urine Blood Urine Nitrate Urine Bilirubin Urine Urobilinogen Ur Leukocyte Esterase Urine WBC (Auto) Urine RBC (Auto) Ur Squamous Epith Cells Urine Yeast (Budding) Urine HCG, Qual IgG Hepatitis A IgM Ab Hep Bs Antigen Hep B Core IgM Ab Hepatitis C Antibody 12/19/17 12/19/17 12/19/17 21:26 23:06 23:12 WBC RBC Hgb Hct MCV MCH MCHC RDW Plt Count MPV Neut % (Auto) Lymph % (Auto) [place] % (Auto) Eos % (Auto) Baso % (Auto) Neut # (Auto) Lymph # (Auto) [place] # (Auto) Eos # (Auto) Baso # (Auto) PT INR APTT Sodium 136 Potassium 4.1 Chloride 97 L Carbon Dioxide 24 Anion Gap 19 BUN 15 Creatinine 0.7 Est GFR ( Amer) > 60 Est GFR (Non-Af Amer) > 60 POC Glucose (mg/dL) 181 H Random Glucose 400 H* Calcium 8.7 Total Bilirubin 7.7 H AST 753 H ALT 703 H Alkaline Phosphatase 707 H Ammonia Total Protein 7.6 Albumin 3.4 L Globulin 4.2 H Albumin/Globulin Ratio 0.8 L Amylase Lipase 1170 H Urine Color Jeanne Urine Clarity Turbid Urine pH 5.0 Ur Specific [place] 1.025 Urine Protein 1+ H Urine Glucose (UA) 3+ H Urine Ketones Negative Urine Blood 1+ H Urine Nitrate Negative Urine Bilirubin Negative Urine Urobilinogen 4.0 H Ur Leukocyte Esterase 3+ H Urine WBC (Auto) 1050 H Urine RBC (Auto) 903 H Ur Squamous Epith Cells 11 H Urine Yeast (Budding) Many H Urine HCG, Qual Negative IgG Hepatitis A IgM Ab Hep Bs Antigen Hep B Core IgM Ab Hepatitis C Antibody 12/20/17 12/20/17 12/20/17 05:43 07:20 07:20 WBC 6.9 RBC 4.13 Hgb 12.3 Hct 36.2 MCV 87.8 MCH 29.7 MCHC 33.9 RDW 15.9 H Plt Count 146 MPV 11.5 Neut % (Auto) 61.0 Lymph % (Auto) 30.0 [place] % (Auto) 5.0 Eos % (Auto) 3.0 Baso % (Auto) 1.0 Neut # (Auto) 4.2 Lymph # (Auto) 2.1 [place] # (Auto) 0.4 Eos # (Auto) 0.2 Baso # (Auto) 0.1 PT INR APTT Sodium 141 Potassium 3.9 Chloride 104 Carbon Dioxide 19 L Anion Gap 21 H BUN 17 Creatinine 0.6 L Est GFR ( Amer) > 60 Est GFR (Non-Af Amer) > 60 POC Glucose (mg/dL) 133 H Random Glucose 120 H Calcium 7.8 L Total Bilirubin 6.3 H AST 706 H ALT 598 H Alkaline Phosphatase 551 H D Ammonia Total Protein 6.4 Albumin 2.9 L Globulin 3.5 Albumin/Globulin Ratio 0.8 L Amylase 137 H Lipase 674 H Urine Color Urine Clarity Urine pH Ur Specific [place] Urine Protein Urine Glucose (UA) Urine Ketones Urine Blood Urine Nitrate Urine Bilirubin Urine Urobilinogen Ur Leukocyte Esterase Urine WBC (Auto) Urine RBC (Auto) Ur Squamous Epith Cells Urine Yeast (Budding) Urine HCG, Qual IgG Hepatitis A IgM Ab Hep Bs Antigen Hep B Core IgM Ab Hepatitis C Antibody 12/20/17 12/20/17 12/20/17 09:55 10:47 10:47 WBC RBC Hgb Hct MCV MCH MCHC RDW Plt Count MPV Neut % (Auto) Lymph % (Auto) [place] % (Auto) Eos % (Auto) Baso % (Auto) Neut # (Auto) Lymph # (Auto) [place] # (Auto) Eos # (Auto) Baso # (Auto) PT INR APTT Sodium Potassium Chloride Carbon Dioxide Anion Gap BUN Creatinine Est GFR ( Amer) Est GFR (Non-Af Amer) POC Glucose (mg/dL) Random Glucose Calcium Total Bilirubin AST ALT Alkaline Phosphatase Ammonia Total Protein Albumin Globulin Albumin/Globulin Ratio Amylase Lipase Urine Color Urine Clarity Urine pH Ur Specific [place] Urine Protein Urine Glucose (UA) Urine Ketones Urine Blood Urine Nitrate Urine Bilirubin Urine Urobilinogen Ur Leukocyte Esterase Urine WBC (Auto) Urine RBC (Auto) Ur Squamous Epith Cells Urine Yeast (Budding) Urine HCG, Qual IgG 1375.8 Hepatitis A IgM Ab Negative Hep Bs Antigen Negative Hep B Core IgM Ab Negative Negative Hepatitis C Antibody Reactive 12/20/17 11:03 WBC RBC Hgb Hct MCV MCH MCHC RDW Plt Count MPV Neut % (Auto) Lymph % (Auto) [place] % (Auto) Eos % (Auto) Baso % (Auto) Neut # (Auto) Lymph # (Auto) [place] # (Auto) Eos # (Auto) Baso # (Auto) PT INR APTT Sodium Potassium Chloride Carbon Dioxide Anion Gap BUN Creatinine Est GFR ( Amer) Est GFR (Non-Af Amer) POC Glucose (mg/dL) 126 H Random Glucose Calcium Total Bilirubin AST ALT Alkaline Phosphatase Ammonia Total Protein Albumin Globulin Albumin/Globulin Ratio Amylase Lipase Urine Color Urine Clarity Urine pH Ur Specific [place] Urine Protein Urine Glucose (UA) Urine Ketones Urine Blood Urine Nitrate Urine Bilirubin Urine Urobilinogen Ur Leukocyte Esterase Urine WBC (Auto) Urine RBC (Auto) Ur Squamous Epith Cells Urine Yeast (Budding) Urine HCG, Qual IgG Hepatitis A IgM Ab Hep Bs Antigen Hep B Core IgM Ab Hepatitis C Antibody Assessment & Plan (1) Hepatitis C Status: Acute (2) Pancreatitis Status: Acute (3) Diabetes mellitus type 2 with complications, uncontrolled Status: Acute - Assessment and Plan (Free Text) Assessment: r/o autoimmune process r/o viral hepatitis pancreatitis r/o gallstones await ERCP results
[2017-12-20] MEDS: Lactated Ringer's 1,000 ML IV SCH ×3 (18:15→23:15)
--- NOTE | 2017-12-20 18:22 | US ---
HISTORY: adnexal mass ? COMPARISON: CT abdomen/ pelvis 12/19/2017 TECHNIQUE: Transabdominal and transvaginal FINDINGS: UTERUS: Measures 7.9 x 4.1 x 4.9 cm. Normal in size and appearance. No fibroid or other mass lesion seen. ENDOMETRIUM: Measures 4 mm in diameter. Unremarkable. CERVIX: No cervical abnormality identified. RIGHT OVARY: Status post right oophorectomy. LEFT OVARY: Normal left ovary not visualized. Left adnexal large complex mass, 12.6 x 10.2 x 11.2 cm. Echogenic and heterogeneous. 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 This was seen on the right side on CT examination and is likely on a long mesoovarium and able to move from 1 side to the other. Cannot adequately evaluate for torsion of the left ovary on the basis of this examination as normal ovarian tissue cannot reliably be seen. . FREE FLUID: No significant free fluid noted. OTHER FINDINGS: Complex fluid within urinary bladder consistent with post infectious or post hemorrhagic debris. IMPRESSION: 12.6 cm heterogeneous echogenic left adnexal mass consistent with dermoid tumor as demonstrated on CT examination of the previous day. Cannot rule out ovarian torsion. Debris noted within urinary bladder, of uncertain significance.
[2017-12-21] MEDS: Lactated Ringer's 1,000 ML IV SCH ×4 (03:15→22:35)
[2017-12-21 06:48] LABS: CERULOPLASMIN 37 mg/dL (18-53)
[2017-12-21 07:50] LABS: HEMOGLOBIN 12.1 g/dL (11.0-16.0); MEAN CELL VOLUME 87.9 fL (81.0-99.0); MEAN CORPUSCULAR HEMOGLOBIN 29.1 pg (27.0-31.0); MEAN CORPUSCULAR HGB CONC 33.1 g/dL (33.0-37.0); MEAN PLATELET VOLUME 11.8 fL (7.2-11.7); RBC 4.15 Mil/uL (3.80-5.20); RED CELL DISTRIBUTION WIDTH 16.2 % (11.5-14.5); WHITE BLOOD COUNT 10.1 K/uL (4.8-10.8)
[2017-12-21 08:01] LABS: IRON 81 ug/dL (37-170)
[2017-12-21] MEDS: (Novolog) Insulin Aspart, Recombinant 100 u/ml 10 ml vial SC SCH ×4 (08:01→21:00)
[2017-12-21 08:06] LABS: AMYLASE 84 U/L (30-110); BILIRUBIN,DIRECT 5.6 mg/dL (0.0-0.4); BLOOD UREA NITROGEN 19 mg/dL (7-17); CALCIUM 8.2 mg/dl (8.6-10.4); GAMMA GLUTAMYL TRANSPEPTIDASE 474 U/L (8-78); GFR AFRICAN-AMERICAN > 60; GFR NON-AFRICAN AMERICAN > 60; HDL CHOLESTEROL 26 mg/dL (30-70); LIPASE 92 U/L (23-300)
[2017-12-21 08:17] LABS: % IRON SATURATION 32 (20-55); TOTAL IRON BINDING CAPACITY 255 ug/dL (250-450)
[2017-12-21 08:20] LABS: LDL CHOLESTEROL 121 mg/dL (0-129)
--- NOTE | 2017-12-21 08:21 | RAD ---
PROCEDURE: HISTORY: JAUNDICE ABDOMINAL PAIN COMPARISON: TECHNIQUE: FINDINGS: IMPRESSION:
--- NOTE | 2017-12-21 09:05 | HP ---
CHIEF COMPLAINT: Fatigue, poor appetite, abdominal pain. HISTORY OF PRESENT ILLNESS: Ms. Alexandre Esquivel is a 47-year-old female with past medical history of hepatitis C, came to the emergency room for evaluation of generalized malaise, poor appetite, generalized weakness, which began around one month ago. The patient also reports a history of diabetic neuropathy and states she did not take her Neurontin on the day of admission and she is also complaining of a sensation of pins and needles to her extremities and noticed that her eyes are turning yellow. The patient denies fevers, chills, vomiting, hematemesis, hematuria, hematochezia. No bright red blood in the stool. The patient is complaining about increasing bruising. PAST MEDICAL HISTORY: Diabetes mellitus, hepatitis C, history of cholecystectomy, history of excision of perineal abscess. FAMILY HISTORY: Unknown. HABITS: No smoking. No drugs. No ethanol. ALLERGIES: THE PATIENT IS ALLERGIC TO HYDROMORPHONE. REVIEW OF SYSTEMS: The patient seen and examined at the bedside today early in the morning in her room, complaining about abdominal pain, seen by GI. No fever. No chills. No hematuria. No hematochezia. No dyspnea. PHYSICAL EXAMINATION VITAL SIGNS: Temperature 97.8, pulse 131, blood pressure 118/54, respiratory rate 20. HEENT: Head: Normocephalic and atraumatic. Eyes: PERRLA. Extraocular muscles intact. Conjunctivae clear. Nose patent. Mucous membranes moist. NECK: Supple. No carotid bruit. No JVD or thyromegaly. CHEST: Bilaterally symmetrical. HEART: S1 and S2 positive. LUNGS: Clear to auscultation. ABDOMEN: Soft. Bowel sounds positive. No organomegaly. EXTREMITIES: No edema. No cyanosis. NEUROLOGICAL: The patient is awake, alert, moving all four extremities. No focal deficits. LABORATORY DATA: White blood cells 6.9, hemoglobin 12.3, hematocrit 36.2, and platelets 146. Sodium 141, potassium 3.9, BUN 17, creatinine 0.6, glucose 342, calcium 7.8, AST 706, ALT 598. ASSESSMENT AND PLAN: Ms. Alexandre Esquivel is a 47-year-old lady with diabetes mellitus, abnormal liver function tests, hyperalbuminemia, pancreatitis, proteinuria, glucosuria, hematuria. Hepatitis profile is negative except that hepatitis C is reactive, seen by Dr. Freddy Ferrari, Infectious Disease specialist. History of diabetes mellitus, fibromyalgia, rule out autoimmune process, rule out gallstones. The patient went for ERCP by GI. Abdomen and pelvis ultrasound is done. A 12.6 heterogenous echogenic left adnexal mass consistent with dermoid tumor as demonstrated on CT examination on the previous day, cannot rule out ovarian torsion. Debris noted within the urinary bladder of uncertain significance. We will call SURVEY TECHNICIAN consult. CAT scan of abdomen and pelvis appreciated. The patient was started on clear liquid diet. Will repeat amylase and lipase. We will follow up. Jacklyn Gordon MD MTDErasto
--- NOTE | 2017-12-21 09:23 | CP.PCM.CON ---
<Amanda LeachFlorence - Last Filed: 12/21/17 09:31> History of Present Illness - History of Present Illness History of Present Illness: Consult for Dr. Manas Thomas for Ovarian Mass Patient is a 47 year old female with a history of fibroids, dermoid, DM, hepatitis C, fibromyalgia, depression, and herniated discs, who presented to the hospital with complaints of jaundiced skin. She has been feeling fatigued, weak, dysphagia, decreased appetite for 5 months. Patient's brother noticed her skin looked jaundiced and told her to come to the hospital. While in the hospital, abdominal/pelvic CT and ultrasound were ordered and showed a 12.6cm dermoid. Patient denies pelvic pain, abnormal vaginal bleeding/discharge. Patient admits to irregular menstrual cycles since her 20s; she states she gets her menstrual cycle 2-3 times per year due to her fibroids, and her LMP was summer. The patient also has had a "10lbs fibroid removed from her right ovary in 1995 that had hair, teeth, and bones". PMD: Dr. Castaneda OBLAURAN: Denies PMHx: Dermoid, fibroids DM, hepatitis C, fibromyalgia, depression, and herniated discs OBHx: Dermoid (1995), fibroids, (vaginal birthx3), no hx STI SurgHx: Dermoid removal 1995; cholecystectomy 2002; multiple groin and breast abscesses I&D FamHx: Mother- HTN, DM, CVA, NM; Grandfather- DM, NM, HTN; Grandmother, Cousin ( x2)- Breast cancer Medications: Gabapentin 800mg (2 tabs) Q8 daily; Metformin 1000mg BID, Lantus 34 units HS Review of Systems - Constitutional Constitutional: Anorexia (early satiety), Weight Loss, Weakness. absent: Fever , Headache - Respiratory Respiratory: absent: Cough - Gastrointestinal Gastrointestinal: Abdominal Pain (diffuse). absent: Constipation, Diarrhea, Loose Stools, Nausea, Vomiting - Genitourinary Genitourinary: absent: Dysuria, Hematuria - Reproductive: Female Reproductive:Female: No Menses for 6 Months (LMP Summer 2016; irregular (2-3 times per year) since her 20s.). absent: Abnormal Vaginal Bleeding, Pelvic Pain , Vaginal Discharge, Vaginal Odor - Musculoskeletal Musculoskeletal: Arthralgias, Myalgias - Integumentary Integumentary: Jaundice - Neurological Neurological: Weakness - Psychiatric Psychiatric: Depression Past Patient History - Past Medical History & Family History Past Medical History?: Yes - Past Social History Smoking Status: Light Smoker < 10 Cigarettes Daily - CARDIAC Hx Cardiac Disorders: No - PULMONARY Hx Respiratory Disorders: No - NEUROLOGICAL Hx Neurological Disorder: Yes (Pt reports she sees a neurologist for 'chronic pain') - HEENT Hx HEENT Problems: No - RENAL Hx Chronic Kidney Disease: No - ENDOCRINE/METABOLIC Hx Diabetes Mellitus Type 2: Yes - HEMATOLOGICAL/ONCOLOGICAL Hx Human Immunodeficiency Virus (HIV): No - INTEGUMENTARY Hx Dermatological Problems: No - MUSCULOSKELETAL/RHEUMATOLOGICAL Hx Musculoskeletal Disorders: No Hx Falls: Yes - GASTROINTESTINAL Hx Gastrointestinal Disorders: No - GENITOURINARY/GYNECOLOGICAL Hx Genitourinary Disorders: No Other/Comment: fibroids - PSYCHIATRIC Hx Substance Use: No - SURGICAL HISTORY Hx Cholecystectomy: Yes - ANESTHESIA Hx Anesthesia: Yes Hx Anesthesia Reactions: No Hx Malignant Hyperthermia: No Meds Allergies/Adverse Reactions: Allergies Allergy/AdvReac Type Severity Reaction Status Date / Time hydromorphone [From Dilaudid] Allergy SHORTNESS Verified 12/19/17 18:53 OF BREATH - Medications Medications: Current Medications Gabapentin (Neurontin) 1,600 mg PO BID [facility] Last Admin: 12/21/17 09:12 Dose: 1,600 mg Sodium Chloride (Sodium Chloride 0.9%) 1,000 mls @ 80 mls/hr IV .[id number] [facility] Lactated Ringer's (Lactated Ringer's) 1,000 mls @ 200 mls/hr IV .Q5H [facility] Last Admin: 12/21/17 03:15 Dose: 200 mls/hr Insulin Aspart (Novolog) 0 unit SC ACHS [facility] PRN Reason: Protocol Last Admin: 12/21/17 08:01 Dose: 4 unit Morphine Sulfate (Morphine) 0.5 mg IVP Q4 PRN PRN Reason: Pain, moderate (4-7) Last Admin: 12/21/17 09:06 Dose: 0.5 mg Pantoprazole Sodium (Protonix Inj) 40 mg IVP DAILY [facility] Last Admin: 12/21/17 09:10 Dose: 40 mg Physical Exam - Constitutional Appears: No Acute Distress - Head Exam Head Exam: ATRAUMATIC, NORMAL INSPECTION - Eye Exam Eye Exam: EOMI, Scleral icterus - ENT Exam ENT Exam: Mucous Membranes Moist - Respiratory Exam Respiratory Exam: Clear to Auscultation Bilateral, NORMAL BREATHING PATTERN. absent: Rales, Rhonchi, Wheezes, Respiratory Distress - Cardiovascular Exam Cardiovascular Exam: REGULAR RHYTHM, +S1, +S2 - GI/Abdominal Exam GI & Abdominal Exam: Mass (midline), Normal Bowel Sounds, Soft, Tenderness ( epigastric, RUQ). absent: Distended, Firm, Guarding Additional comments: Cholecystectomy scar noted on right abdomen; pelvic scar noted from dermoid removal. - Extremities Exam Extremities exam: Positive for: pedal pulses present. Negative for: tenderness - Neurological Exam Neurological exam: Alert, Oriented x3 - Psychiatric Exam Psychiatric exam: Depressed - Skin Skin Exam: Dry, Intact, Warm Additional comments: Jaundiced Results - Vital Signs Recent Vital Signs: Last Vital Signs Temp 98.2 F 12/21/17 07:52 Pulse 102 H 12/21/17 07:52 Resp 20 12/21/17 07:52 BP 117/74 12/21/17 07:52 Pulse Ox 97 12/21/17 07:52 - Labs Result Diagrams: 12/21/17 07:33 12/21/17 07:33 Labs: Laboratory Results - last 24 hr 12/20/17 12/20/17 12/20/17 07:20 09:55 10:47 WBC RBC Hgb Hct MCV MCH MCHC RDW Plt Count MPV Neut % (Auto) 61.0 Lymph % (Auto) 30.0 [place] % (Auto) 5.0 Eos % (Auto) 3.0 Baso % (Auto) 1.0 Neut # (Auto) 4.2 Lymph # (Auto) 2.1 [place] # (Auto) 0.4 Eos # (Auto) 0.2 Baso # (Auto) 0.1 Sodium Potassium Chloride Carbon Dioxide Anion Gap BUN Creatinine Est GFR ( Amer) Est GFR (Non-Af Amer) POC Glucose (mg/dL) Random Glucose Hemoglobin A1c Calcium Iron TIBC % Saturation Direct Bilirubin GGT Ceruloplasmin 37 Triglycerides Cholesterol LDL Cholesterol Direct HDL Cholesterol Amylase Lipase Vitamin B12 TSH 3rd Generation IgG 1375.8 Hepatitis A IgM Ab Hep Bs Antigen Hep B Core IgM Ab Hepatitis C Antibody HIV 1&2 Antibody Screen 12/20/17 12/20/17 12/20/17 10:47 10:47 11:03 WBC RBC Hgb Hct MCV MCH MCHC RDW Plt Count MPV Neut % (Auto) Lymph % (Auto) [place] % (Auto) Eos % (Auto) Baso % (Auto) Neut # (Auto) Lymph # (Auto) [place] # (Auto) Eos # (Auto) Baso # (Auto) Sodium Potassium Chloride Carbon Dioxide Anion Gap BUN Creatinine Est GFR ( Amer) Est GFR (Non-Af Amer) POC Glucose (mg/dL) 126 H Random Glucose Hemoglobin A1c Calcium Iron TIBC % Saturation Direct Bilirubin GGT Ceruloplasmin Triglycerides Cholesterol LDL Cholesterol Direct HDL Cholesterol Amylase Lipase Vitamin B12 TSH 3rd Generation IgG Hepatitis A IgM Ab Negative Hep Bs Antigen Negative Hep B Core IgM Ab Negative Negative Hepatitis C Antibody Reactive HIV 1&2 Antibody Screen 12/20/17 12/20/17 12/21/17 16:21 21:15 02:49 WBC RBC Hgb Hct MCV MCH MCHC RDW Plt Count MPV Neut % (Auto) Lymph % (Auto) [place] % (Auto) Eos % (Auto) Baso % (Auto) Neut # (Auto) Lymph # (Auto) [place] # (Auto) Eos # (Auto) Baso # (Auto) Sodium Potassium Chloride Carbon Dioxide Anion Gap BUN Creatinine Est GFR ( Amer) Est GFR (Non-Af Amer) POC Glucose (mg/dL) 196 H 342 H 335 H Random Glucose Hemoglobin A1c Calcium Iron TIBC % Saturation Direct Bilirubin GGT Ceruloplasmin Triglycerides Cholesterol LDL Cholesterol Direct HDL Cholesterol Amylase Lipase Vitamin B12 TSH 3rd Generation IgG Hepatitis A IgM Ab Hep Bs Antigen Hep B Core IgM Ab Hepatitis C Antibody HIV 1&2 Antibody Screen 12/21/17 12/21/17 12/21/17 07:31 07:33 07:33 WBC RBC Hgb Hct MCV MCH MCHC RDW Plt Count MPV Neut % (Auto) Lymph % (Auto) [place] % (Auto) Eos % (Auto) Baso % (Auto) Neut # (Auto) Lymph # (Auto) [place] # (Auto) Eos # (Auto) Baso # (Auto) Sodium 135 Potassium 5.0 Chloride 101 Carbon Dioxide 21 L Anion Gap 18 BUN 19 H Creatinine 0.6 L Est GFR ( Amer) > 60 Est GFR (Non-Af Amer) > 60 POC Glucose (mg/dL) 268 H Random Glucose 277 H Hemoglobin A1c Calcium 8.2 L Iron TIBC % Saturation Direct Bilirubin 5.6 H GGT 474 H Ceruloplasmin Triglycerides 170 H Cholesterol 228 H LDL Cholesterol Direct 121 HDL Cholesterol 26 L Amylase 84 Lipase 92 Vitamin B12 871 TSH 3rd Generation 0.20 L IgG Hepatitis A IgM Ab Hep Bs Antigen Hep B Core IgM Ab Hepatitis C Antibody HIV 1&2 Antibody Screen Negative 12/21/17 12/21/17 12/21/17 07:33 07:33 07:33 WBC 10.1 RBC 4.15 Hgb 12.1 Hct 36.4 MCV 87.9 MCH 29.1 MCHC 33.1 RDW 16.2 H Plt Count 165 MPV 11.8 H Neut % (Auto) Lymph % (Auto) [place] % (Auto) Eos % (Auto) Baso % (Auto) Neut # (Auto) Lymph # (Auto) [place] # (Auto) Eos # (Auto) Baso # (Auto) Sodium Potassium Chloride Carbon Dioxide Anion Gap BUN Creatinine Est GFR ( Amer) Est GFR (Non-Af Amer) POC Glucose (mg/dL) Random Glucose Hemoglobin A1c 13.1 H Calcium Iron 81 TIBC 255 % Saturation 32 Direct Bilirubin GGT Ceruloplasmin Triglycerides Cholesterol LDL Cholesterol Direct HDL Cholesterol Amylase Lipase Vitamin B12 TSH 3rd Generation IgG Hepatitis A IgM Ab Hep Bs Antigen Hep B Core IgM Ab Hepatitis C Antibody HIV 1&2 Antibody Screen Assessment & Plan (1) Dermoid cyst of ovary Assessment and Plan: - Abd/Pelv CT (12/19/17): 10.3 x 7.4 cm fat containing mass right adnexa, probable ovarian dermoid - Abd/Pelv/Transvaginal US (12/20/17): 12.6cm heterogenous echogenic left adenexal mass consistent with dermoid tumor; this was seen on the right side on CT examination and is likley on a long mesoovarium and able to move from 1 side to the other. - CEA, CA125, CA19-9 ordered: f/u results Patient instructed to follow up as outpatient for management of dermoid cyst, as emergent surgery is not needed.; will likely need surgical intervention. Patient also instructed to follow up with OBGYN for pap smear and mammogram. Status: Chronic <Lauren Thomas - Last Filed: 12/21/17 17:50> Meds - Medications Medications: Current Medications Gabapentin (Neurontin) 1,600 mg PO BID [facility] Last Admin: 12/21/17 17:43 Dose: 1,600 mg Sodium Chloride (Sodium Chloride 0.9%) 1,000 mls @ 80 mls/hr IV .[id number] [facility] Lactated Ringer's (Lactated Ringer's) 1,000 mls @ 200 mls/hr IV .Q5H [facility] Last Admin: 12/21/17 16:13 Dose: 200 mls/hr Insulin Aspart (Novolog) 0 unit SC ACHS [facility] PRN Reason: Protocol Last Admin: 12/21/17 16:37 Dose: 3 unit Morphine Sulfate (Morphine) 0.5 mg IVP Q4 PRN PRN Reason: Pain, moderate (4-7) Last Admin: 12/21/17 14:49 Dose: 0.5 mg Pantoprazole Sodium (Protonix Inj) 40 mg IVP DAILY [facility] Last Admin: 12/21/17 09:10 Dose: 40 mg Results - Vital Signs Recent Vital Signs: Last Vital Signs Temp 98.6 F 12/21/17 15:00 Pulse 98 H 12/21/17 15:00 Resp 20 12/21/17 15:00 BP 101/68 12/21/17 15:30 Pulse Ox 99 12/21/17 15:30 - Labs Result Diagrams: 12/21/17 07:33 12/21/17 07:33 Labs: Laboratory Results - last 24 hr 12/20/17 12/20/17 12/21/17 10:47 21:15 02:49 WBC RBC Hgb Hct MCV MCH MCHC RDW Plt Count MPV Sodium Potassium Chloride Carbon Dioxide Anion Gap BUN Creatinine Est GFR ( Amer) Est GFR (Non-Af Amer) POC Glucose (mg/dL) 342 H 335 H Random Glucose Hemoglobin A1c Calcium Iron TIBC % Saturation Total Bilirubin Direct Bilirubin GGT AST ALT Alkaline Phosphatase Total Protein Albumin Globulin Albumin/Globulin Ratio Ceruloplasmin 37 Triglycerides Cholesterol LDL Cholesterol Direct HDL Cholesterol Amylase Lipase Carcinoembryonic Ag CA 19-9 Antigen CA 125 Antigen Vitamin B12 Folate TSH 3rd Generation Anti-Mitochondrial Ab Negative Smooth Muscle Ab Titer TEST NOT PERFORMED Anti-Smooth Muscle Ab Negative HIV 1&2 Antibody Screen 12/21/17 12/21/17 12/21/17 07:31 07:33 07:33 WBC RBC Hgb Hct MCV MCH MCHC RDW Plt Count MPV Sodium 135 Potassium 5.0 Chloride 101 Carbon Dioxide 21 L Anion Gap 18 BUN 19 H Creatinine 0.6 L Est GFR ( Amer) > 60 Est GFR (Non-Af Amer) > 60 POC Glucose (mg/dL) 268 H Random Glucose 277 H Hemoglobin A1c Calcium 8.2 L Iron TIBC % Saturation Total Bilirubin Direct Bilirubin 5.6 H GGT 474 H AST ALT Alkaline Phosphatase Total Protein Albumin Globulin Albumin/Globulin Ratio Ceruloplasmin Triglycerides 170 H Cholesterol 228 H LDL Cholesterol Direct 121 HDL Cholesterol 26 L Amylase 84 Lipase 92 Carcinoembryonic Ag 15.2 H CA 19-9 Antigen 1040 H CA 125 Antigen 26.3 Vitamin B12 871 Folate 16.2 TSH 3rd Generation 0.20 L Anti-Mitochondrial Ab Smooth Muscle Ab Titer Anti-Smooth Muscle Ab HIV 1&2 Antibody Screen Negative 12/21/17 12/21/17 12/21/17 07:33 07:33 07:33 WBC 10.1 RBC 4.15 Hgb 12.1 Hct 36.4 MCV 87.9 MCH 29.1 MCHC 33.1 RDW 16.2 H Plt Count 165 MPV 11.8 H Sodium Potassium Chloride Carbon Dioxide Anion Gap BUN Creatinine Est GFR ( Amer) Est GFR (Non-Af Amer) POC Glucose (mg/dL) Random Glucose Hemoglobin A1c 13.1 H Calcium Iron 81 TIBC 255 % Saturation 32 Total Bilirubin Direct Bilirubin GGT AST ALT Alkaline Phosphatase Total Protein Albumin Globulin Albumin/Globulin Ratio Ceruloplasmin Triglycerides Cholesterol LDL Cholesterol Direct HDL Cholesterol Amylase Lipase Carcinoembryonic Ag CA 19-9 Antigen CA 125 Antigen Vitamin B12 Folate TSH 3rd Generation Anti-Mitochondrial Ab Smooth Muscle Ab Titer Anti-Smooth Muscle Ab HIV 1&2 Antibody Screen 12/21/17 12/21/17 12/21/17 10:53 11:52 16:07 WBC RBC Hgb Hct MCV MCH MCHC RDW Plt Count MPV Sodium Potassium Chloride Carbon Dioxide Anion Gap BUN Creatinine Est GFR ( Amer) Est GFR (Non-Af Amer) POC Glucose (mg/dL) 243 H 241 H Random Glucose Hemoglobin A1c Calcium Iron TIBC % Saturation Total Bilirubin 5.8 H Direct Bilirubin 5.1 H GGT AST 589 H ALT 528 H Alkaline Phosphatase 590 H Total Protein 6.5 Albumin 2.9 L Globulin 3.6 Albumin/Globulin Ratio 0.8 L Ceruloplasmin Triglycerides Cholesterol LDL Cholesterol Direct HDL Cholesterol Amylase Lipase Carcinoembryonic Ag CA 19-9 Antigen CA 125 Antigen Vitamin B12 Folate TSH 3rd Generation Anti-Mitochondrial Ab Smooth Muscle Ab Titer Anti-Smooth Muscle Ab HIV 1&2 Antibody Screen Assessment & Plan - Assessment and Plan (Free Text) Plan: pt seen and examined earlier with resident 47 y/o P3 LMP irregular reports admitted secondary to jaundece with indicental fidnig of 12cm mass consistent with dermoid. pt preorts hx of exlap secondr to deroid and reoports last soil conservation aide vist iwht pap and mammgorma over 5 years ago. pt dneis any pain, vaginal bleeding, bladder cmplaint but reports 10 pund weight loss over a few months due ot poor apetite, dneis any diet or exercie, pt dneis early satiey, abodminla bloating or distensin adn reports hx of chronic consptation HS as above edited: OB: X 4 FT uncomplciated US rsults reviwed, CT Scan reviweed PE: GEN NAD AAO X, 3 RESP: CTAB?l CVS: RRR< +S1/S2 ABD: soft, no g uarding, no reobud tendnere, no rigidity, NT, VE declined EXT: negaitev homns' sign A/P 47 y/o P4 with Ovarian mass cw dermoid -pt counlsed extesneily on results and advised althought appers to be consstient with dermoid cannot rule out maligant -recommend tumor markerns cea, [id number] and advised of false postive and others cuases -advisd no ermegency surigcal intevetion neeed, no evdicen of torsion or hermorroag -recommend /fu o/o with soil conservation aide and also for routien screening -all questions answered, no further intervention Thank you for this consult. Please feel free to call if any questions or concerns Lauren Thomas MD [phone]
[2017-12-21] MEDS ORDERED: Iodixanol 320 MG/ML 100 ML BOTTLE IV ONE (09:30)
[2017-12-21 10:15] LABS: FOLATE 16.2 ng/mL
[2017-12-21 11:33] LABS: ALB/GLOB RATIO 0.8 (1.0-2.1); ALBUMIN 2.9 g/dL (3.5-5.0); BILIRUBIN,DIRECT 5.1 mg/dL (0.0-0.4)
--- NOTE | 2017-12-21 11:48 | CP.PCM.PN ---
<Kanchan Thomas - Last Filed: 12/21/17 11:49> Subjective - Date & Time of Evaluation Date of Evaluation: 12/21/17 Time of Evaluation: 07:00 - Subjective Subjective: PGY4 GI Follow-up Pt seen and examined bedside tolerating diet still has abd pain, but improved +BM ROS: 10 point ROS conducted neg other than above Objective - Vital Signs/Intake and Output Vital Signs (last 24 hours): Temp Pulse Resp BP Pulse Ox 98.2 F 102 H 20 117/74 97 12/21/17 07:52 12/21/17 07:52 12/21/17 07:52 12/21/17 07:52 12/21/17 07:52 Intake and Output: 12/21/17 12/21/17 06:59 18:59 Intake Total 3150 Balance 3150 - Medications Medications: Current Medications Gabapentin (Neurontin) 1,600 mg PO BID [facility] Last Admin: 12/21/17 09:12 Dose: 1,600 mg Sodium Chloride (Sodium Chloride 0.9%) 1,000 mls @ 80 mls/hr IV .[id number] [facility] Lactated Ringer's (Lactated Ringer's) 1,000 mls @ 200 mls/hr IV .Q5H [facility] Last Admin: 12/21/17 03:15 Dose: 200 mls/hr Insulin Aspart (Novolog) 0 unit SC ACHS [facility] PRN Reason: Protocol Last Admin: 12/21/17 08:01 Dose: 4 unit Morphine Sulfate (Morphine) 0.5 mg IVP Q4 PRN PRN Reason: Pain, moderate (4-7) Last Admin: 12/21/17 09:06 Dose: 0.5 mg Pantoprazole Sodium (Protonix Inj) 40 mg IVP DAILY [facility] Last Admin: 12/21/17 09:10 Dose: 40 mg - Labs Labs: 12/21/17 07:33 12/21/17 07:33 PT 10.5 SECONDS (9.7-12.2) 12/19/17 20:20 INR 0.9 12/19/17 20:20 APTT 35 SECONDS (21-34) H 12/19/17 20:20 - Constitutional Appears: Well, No Acute Distress - Head Exam Head Exam: ATRAUMATIC, NORMOCEPHALIC - Eye Exam Eye Exam: Scleral icterus - ENT Exam ENT Exam: Mucous Membranes Moist, Normal Exam - Neck Exam Neck Exam: Normal Inspection - Respiratory Exam Respiratory Exam: Clear to Ausculation Bilateral, NORMAL BREATHING PATTERN. absent: Rales, Rhonchi, Wheezes, Respiratory Distress - Cardiovascular Exam Cardiovascular Exam: REGULAR RHYTHM, +S1, +S2 - GI/Abdominal Exam GI & Abdominal Exam: Soft, Tenderness (epigastric area), Normal Bowel Sounds. absent: Guarding, Rigid - Extremities Exam Extremities Exam: absent: Joint Swelling, Pedal Edema - Neurological Exam Neurological Exam: Alert, Awake, Oriented x3 - Psychiatric Exam Psychiatric exam: Normal Affect, Normal Mood - Skin Skin Exam: Dry, Intact, Normal Color, Warm Assessment and Plan - Assessment and Plan (Free Text) Assessment: Alexandre Esquivel is a 47F w/ hx of Hep c?, fibromyalgia, DM who presents to the ER with complaints of abd pain and jaundice. S/p ERCP/EUS/EGD: gastric and duodenal ulceration; abnormal biliary ducts, sludge extraction and sphincterotomy Acute Pancreatitis, improving Juandice Elevated LFTS, etiology unknown;DDx: autoimmune, PSC, HCC Constipation Plan: -CT reviewed and did not reveal and pancreatic lesions -will triple phase liver -Autoimmune work-up pending -Hep C antibody + -advance diet to low fat -Continue miralax BID -recommend outpt follow-up with printed circuit board preassembler -may eventually need liver biopsy -recommend AFP -Continue fluids at 200ml/hr -pain management as per primary team D/W Dr. Hassan <Shen Hassan - Last Filed: 12/21/17 19:57> Objective - Vital Signs/Intake and Output Vital Signs (last 24 hours): Temp Pulse Resp BP Pulse Ox 98.6 F 98 H 20 101/68 99 12/21/17 15:00 12/21/17 15:00 12/21/17 15:00 12/21/17 15:30 12/21/17 15:30 Intake and Output: 12/21/17 12/22/17 18:59 06:59 Intake Total 2079 Balance 2079 - Medications Medications: Current Medications Gabapentin (Neurontin) 1,600 mg PO BID [facility] Last Admin: 12/21/17 17:43 Dose: 1,600 mg Sodium Chloride (Sodium Chloride 0.9%) 1,000 mls @ 80 mls/hr IV .[id number] [facility] Lactated Ringer's (Lactated Ringer's) 1,000 mls @ 200 mls/hr IV .Q5H [facility] Last Admin: 12/21/17 16:13 Dose: 200 mls/hr Insulin Aspart (Novolog) 0 unit SC ACHS [facility] PRN Reason: Protocol Last Admin: 12/21/17 16:37 Dose: 3 unit Morphine Sulfate (Morphine) 0.5 mg IVP Q4 PRN PRN Reason: Pain, moderate (4-7) Last Admin: 12/21/17 19:44 Dose: 0.5 mg Pantoprazole Sodium (Protonix Inj) 40 mg IVP DAILY [facility] Last Admin: 12/21/17 09:10 Dose: 40 mg - Labs Labs: 12/21/17 07:33 12/21/17 07:33 PT 10.5 SECONDS (9.7-12.2) 12/19/17 20:20 INR 0.9 12/19/17 20:20 APTT 35 SECONDS (21-34) H 12/19/17 20:20 Attending/Attestation - Attestation I have personally seen and examined this patient.: Yes I have fully participated in the care of the patient.: Yes I have reviewed all pertinent clinical information, including history, physical exam and plan: Yes Notes (Text): 12/21/17 19:54 I have seen and examined patient with GI fellow. No acute events overnight, she is seen resting in bed comfortably. She continues to endorse generalized abdominal pain but denies nausea, vomiting, fever/chills. Tolerating PO diet without difficulty. Review of vitals from today shows tachycardia. DM HCV Transaminitis, jaundice - s/p ERCP with sphincterotomy and sludge extraction - Diet as tolerated - LFTs trending down, continue to monitor - Awaiting results from autoimmune panel testing - Obtain AFP - Triple phase liver CT reviewed by me showing no evidence of hepatic lesions - Patient with elevated CA 19-9 and abnormal ductal findings on ERCP cholangiogram, ?PSC vs infiltrative liver disease. Given constellation of findings, would suggest liver biopsy for further evaluation. Will continue to monitor patient clinical course.
--- NOTE | 2017-12-21 12:12 | CT ---
PROCEDURE: CT scan abdomen 12/21/2017 HISTORY: Jaundice. Rule out malignancy COMPARISON: Comparison made with prior noncontrast CT scan of the abdomen and pelvis dated 12/19/2017. TECHNIQUE: Contiguous helical/transaxial images of the abdomen were obtained in the pre contrast, portal venous and delayed phases of enhancement. Coronal and sagittal reformats were generated. . Note that the lower pelvis has not been scanned and therefore not evaluated. Contrast dose: 100 cc Visipaque 320 contrast material Radiation dose: Total exam DLP = 531.52. MGy-cm. This CT exam was performed using one or more of the following dose reduction techniques: Automated exposure control, adjustment of the mA and/or kV according to patient size, and/or use of iterative reconstruction technique. FINDINGS: LOWER THORAX: Bibasilar atelectasis and or scarring changes left greater than right. Suspect trace bilateral effusions as well. Heart size is within range of normal. Tiny pericardial effusion present. Small hiatal hernia with slight wall thickening of the distal esophagus likely due to protrusion of gastric mucosa. Possibility of esophagitis not excluded. LIVER: The liver is enlarged measuring just over 20 cm in CC dimension. Mild diffuse fatty hepatic infiltration. Again seen is small amount of pneumobilia with mild intrahepatic biliary ductal dilatation. No obvious enhancing hepatic masses. Portal and splenic veins are opacified. Tiny amount of perihepatic ascites felt be present. GALLBLADDER AND BILE DUCTS: Post cholecystectomy changes are present. PANCREAS: No definitive pancreatic head lesions are identified. Note is made however of what appears represent some vague infiltration changes in the mesenteries surrounding the pancreatic head; rule out localized mild pancreatitis on. Correlation with serum amylase and lipase recommended. Consider followup ERCP and/or MRCP further evaluation of the distal common bile duct and Ampulla of Vater SPLEEN: Spleen is mildly enlarged measuring approximately 13.1 cm in greatest AP dimension. No splenic mass collection or calcification. ADRENALS: There are no adrenal lesions. KIDNEYS AND URETERS: Kidneys demonstrate relatively symmetric nephrograms. No evidence of nephrolithiasis or hydronephrosis. No obvious enhancing renal masses or collections. . VASCULATURE: No evidence of abdominal aortic aneurysm. BOWEL: Evaluation of the bowel is limited due to on the lack of oral contrast material as well as incomplete visualization of the lower pelvis. The stomach is incompletely distended which presumably accounts for slight thick-walled appearance. Visualized loops of small bowel exhibit normal contour and caliber. No evidence acute mechanical small bowel obstruction. Moderate amount of stool seen within the cecum ascending, transverse and proximal descending colon suggesting mild fecal retention/ constipation. . No definitive mural wall thickening. APPENDIX: Appendix not seen with complete certainty however no obvious inflammatory changes in the right lower abdomen or upper/mid pelvis region. PERITONEUM: Unremarkable. No free fluid. No free air. There is a tiny fat containing mid upper abdominal ventral wall hernia. Small fat containing umbilical hernia. LYMPH NODES: Multiple small nonspecific retroperitoneal lymph nodes are present. BLADDER: Urinary bladder is physiologically distended. No evidence of intraluminal urinary bladder calculi. REPRODUCTIVE: Re- demonstrated is a somewhat teardrop shaped large heterogeneous mass in the left upper pelvis and lower abdomen that measures approximate 13 cm cc x 10 cm AP x 9.3 cm trans likely representing a dermoid cyst. This lesion does not exhibit significant contrast enhancement. BONES: The osseous structures appear grossly intact. OTHER FINDINGS: None. IMPRESSION: Mild bibasilar atelectasis left greater than right. Tiny bilateral effusions are also felt be present. Tiny pericardial effusion. Findings suggest mild fatty hepatic infiltration. Status post cholecystectomy with mild pneumobilia and mild central intrahepatic biliary ductal dilatation. Tiny amount of perihepatic ascites felt to be present. No definitive pancreatic mass however some vague infiltration changes in the mesenteries surrounding the pancreatic head noted. Correlation with serum amylase and lipase. Consider followup ERCP or MRCP for further evaluation of the pancreatic head distal common bile duct and Ampulla of Vater. Re- demonstrated is a large heterogeneous the fat containing mass lesion in the left lower abdomen/upper pelvis that demonstrates no significant contrast enhancement. Findings most consistent with a large dermoid cyst left adnexa. Clinical correlation recommended. Findings consistent with mild constipation.
--- NOTE | 2017-12-21 18:34 | CP.PCM.PN ---
Subjective - Date & Time of Evaluation Date of Evaluation: 12/21/17 Time of Evaluation: 08:00 - Subjective Subjective: afeb c/o pain NAD Objective - Vital Signs/Intake and Output Vital Signs (last 24 hours): Temp Pulse Resp BP Pulse Ox 98.6 F 98 H 20 101/68 99 12/21/17 15:00 12/21/17 15:00 12/21/17 15:00 12/21/17 15:30 12/21/17 15:30 Intake and Output: 12/21/17 12/21/17 06:59 18:59 Intake Total 3150 2080 Balance 3150 2080 - Medications Medications: Current Medications Gabapentin (Neurontin) 1,600 mg PO BID [facility] Last Admin: 12/21/17 17:43 Dose: 1,600 mg Sodium Chloride (Sodium Chloride 0.9%) 1,000 mls @ 80 mls/hr IV .[id number] EDMUN[facility] Lactated Ringer's (Lactated Ringer's) 1,000 mls @ 200 mls/hr IV .Q5H [facility] Last Admin: 12/21/17 16:13 Dose: 200 mls/hr Insulin Aspart (Novolog) 0 unit SC ACHS [facility]UN[facility] PRN Reason: Protocol Last Admin: 12/21/17 16:37 Dose: 3 unit Morphine Sulfate (Morphine) 0.5 mg IVP Q4 PRN PRN Reason: Pain, moderate (4-7) Last Admin: 12/21/17 14:49 Dose: 0.5 mg Pantoprazole Sodium (Protonix Inj) 40 mg IVP DAILY [facility] Last Admin: 12/21/17 09:10 Dose: 40 mg - Labs Labs: 12/21/17 07:33 12/21/17 07:33 PT 10.5 SECONDS (9.7-12.2) 12/19/17 20:20 INR 0.9 12/19/17 20:20 APTT 35 SECONDS (21-34) H 12/19/17 20:20 - Constitutional Appears: Chronically Ill - Head Exam Head Exam: NORMOCEPHALIC - Eye Exam Eye Exam: Scleral icterus - ENT Exam ENT Exam: Mucous Membranes Dry - Neck Exam Neck Exam: absent: Lymphadenopathy - Respiratory Exam Respiratory Exam: Decreased Breath Sounds - Cardiovascular Exam Cardiovascular Exam: REGULAR RHYTHM - GI/Abdominal Exam GI & Abdominal Exam: Distended - Rectal Exam Rectal Exam: Deferred Assessment and Plan (1) Hepatitis C Status: Acute (2) Pancreatitis Status: Acute (3) Diabetes mellitus type 2 with complications, uncontrolled Status: Acute
[2017-12-22] MEDS: Lactated Ringer's 1,000 ML IV SCH ×6 (00:15→21:20)
--- NOTE | 2017-12-22 06:51 | PN ---
DATE: SUBJECTIVE: The patient is a 47-year-old female. The patient was seen and examined at the bedside, complaining about abdominal pain, right-sided pelvic pain and soreness in the mouth, tolerating diet, but getting little bit improvement. No nausea, vomiting, no headache, no dizziness, no chest pain, no palpitation. REVIEW OF SYSTEMS: Ten-point review of systems conducted and negative other than above. PHYSICAL EXAMINATION: VITAL SIGNS: Temperature 98.2, pulse 102, respiratory rate 20, blood pressure 117/74, pulse oximetry of 97. HEENT: Head, normocephalic, atraumatic. Eyes: PERRLA. Extraocular muscles intact. Conjunctivae clear. Nose patent. Mucous membranes are moist. NECK: Supple. No carotid bruits or thyromegaly. CHEST: Bilaterally symmetrical. HEART: S1, S2 positive. LUNGS: Clear to auscultation. ABDOMEN: Soft. Bowel sounds positive. No organomegaly. EXTREMITIES: No edema, no cyanosis. NEUROLOGIC: The patient is awake, alert. Moving all 4 extremities. No focal deficits. MEDICATIONS: Neurontin MS, Ringer's lactate, insulin, morphine, pantoprazole. LABORATORY DATA: White blood cell is 10.1, hemoglobin 12.1, hematocrit 36.4, platelets 155. Sodium 135, potassium 5.0, BUN 19, creatinine 0.6, glucose 277. ASSESSMENT AND PLAN: Ms. Sierra Schroeder, a 47 years old female with renal insufficiency, hyperglycemia, oral thrush, now Mycelex Troches given, history of hepatitis C positive, fibromyalgia, has abdominal pain and jaundice. Status post endoscopic retrograde cholangiopancreatography/endoscopic ultrasound/esophagogastroduodenoscopy shows gastritis, duodenitis, duodenal ulcers but abnormal biliary duct sludge extraction and sphincterotomy done. Acute pancreatitis, improving. Jaundice, getting better. Elevated liver function test, etiology unknown. There maybe autoimmune, maybe primary sclerosing cholangitis, hepatocellular carcinoma. The patient has constipation. CT reviewed for pancreatic lesion. Autoimmune workup pending, hepatitis C antibodies positive. Advance diet as low fat. Continue MiraLax. Recommended outpatient followup with [employer]. Recommended , pain management. Seen by Dr. robb . Seen by [employer], Dr. Lauren Thomas as out pt . The patient had irregular menses, had 12 cm adnexal mass consistent with dermoid. The patient reports history of exploratory laparotomy, secondary to the dermoid and reports last gynecologic visit was done last year. Mammography was over 5 years ago. No vaginal bleeding and no bladder symptoms. Length of time discussion done with the patient, offered either go to her old [facility] [employer] or dr Cece Thomas Gastrointestinal and deep venous thrombosis prophylaxes. Tumor markers appreciated. We will follow up. Jacklyn Gordon MD MTDErasto
[2017-12-22 07:32] LABS: HEMOGLOBIN 11.8 g/dL (11.0-16.0); MEAN CELL VOLUME 87.8 fL (81.0-99.0); MEAN CORPUSCULAR HEMOGLOBIN 28.8 pg (27.0-31.0); MEAN CORPUSCULAR HGB CONC 32.8 g/dL (33.0-37.0); MEAN PLATELET VOLUME 10.9 fL (7.2-11.7); RBC 4.1 Mil/uL (3.80-5.20); RED CELL DISTRIBUTION WIDTH 16.1 % (11.5-14.5); WHITE BLOOD COUNT 5.3 K/uL (4.8-10.8)
[2017-12-22 07:36] LABS: ALB/GLOB RATIO 0.9 (1.0-2.1); ALBUMIN 2.8 g/dL (3.5-5.0); ALT/SGPT 523 U/L (9-52); AST/SGOT 656 U/L (14-36); BLOOD UREA NITROGEN 12 mg/dL (7-17); CALCIUM 8.2 mg/dl (8.6-10.4); GFR AFRICAN-AMERICAN > 60; GFR NON-AFRICAN AMERICAN > 60
[2017-12-22] MEDS: (Novolog) Insulin Aspart, Recombinant 100 u/ml 10 ml vial SC SCH ×4 (08:30→21:21)
[2017-12-22 08:44] LABS: BASO # 0.1 K/uL (0.0-0.2); EOS # 0.1 K/uL (0.0-0.7); LYMPH # 1.6 K/uL (1.0-4.3); MONO # 0.6 K/uL (0.0-0.8)
--- NOTE | 2017-12-22 08:57 | CP.PCM.PN ---
<Kanchan Thomas - Last Filed: 12/22/17 13:31> Subjective - Date & Time of Evaluation Date of Evaluation: 12/22/17 Time of Evaluation: 07:45 - Subjective Subjective: PGY4 GI Follow-up Pt seen and examined bedside tolerating diet still has abd pain, but improved +BM ROS: 10 point ROS conducted neg other than above Objective - Vital Signs/Intake and Output Vital Signs (last 24 hours): Temp Pulse Resp BP Pulse Ox 98.3 F 90 20 128/87 96 12/22/17 07:06 12/22/17 07:06 12/22/17 07:06 12/22/17 07:06 12/22/17 07:06 Intake and Output: 12/22/17 12/22/17 06:59 18:59 Intake Total 3200 Balance 3200 - Medications Medications: Current Medications Clotrimazole (Mycelex John) 10 mg PO TID [facility] Gabapentin (Neurontin) 1,600 mg PO BID [facility] Last Admin: 12/21/17 17:43 Dose: 1,600 mg Sodium Chloride (Sodium Chloride 0.9%) 1,000 mls @ 80 mls/hr IV .[id number] [facility] Lactated Ringer's (Lactated Ringer's) 1,000 mls @ 200 mls/hr IV .Q5H [facility] Last Admin: 12/22/17 05:15 Dose: Not Given Insulin Aspart (Novolog) 0 unit SC ACHS [facility] PRN Reason: Protocol Last Admin: 12/22/17 08:30 Dose: 3 unit Morphine Sulfate (Morphine) 0.5 mg IVP Q4 PRN PRN Reason: Pain, moderate (4-7) Last Admin: 12/22/17 00:00 Dose: 0.5 mg Pantoprazole Sodium (Protonix Inj) 40 mg IVP DAILY [facility] Last Admin: 12/21/17 09:10 Dose: 40 mg - Labs Labs: 12/22/17 07:09 12/22/17 07:09 PT 10.5 SECONDS (9.7-12.2) 12/19/17 20:20 INR 0.9 12/19/17 20:20 APTT 35 SECONDS (21-34) H 12/19/17 20:20 - Constitutional Appears: Well, No Acute Distress - Head Exam Head Exam: ATRAUMATIC, NORMOCEPHALIC - Eye Exam Eye Exam: Scleral icterus - ENT Exam ENT Exam: Mucous Membranes Moist, Normal Exam - Neck Exam Neck Exam: Normal Inspection - Respiratory Exam Respiratory Exam: Clear to Ausculation Bilateral, NORMAL BREATHING PATTERN. absent: Rales, Rhonchi, Wheezes, Respiratory Distress - Cardiovascular Exam Cardiovascular Exam: REGULAR RHYTHM, +S1, +S2 - GI/Abdominal Exam GI & Abdominal Exam: Soft, Normal Bowel Sounds. absent: Guarding, Rigid, Tenderness - Extremities Exam Extremities Exam: absent: Joint Swelling, Pedal Edema - Neurological Exam Neurological Exam: Alert, Awake, Oriented x3 - Psychiatric Exam Psychiatric exam: Normal Affect, Normal Mood - Skin Skin Exam: Dry, Intact, Normal Color, Warm Assessment and Plan - Assessment and Plan (Free Text) Assessment: Alexandre Esquivel is a 47F w/ hx of Hep c?, fibromyalgia, DM who presents to the ER with complaints of abd pain and jaundice. 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 De La O <Tawanda De La O - Last Filed: 12/22/17 18:20> Objective - Vital Signs/Intake and Output Vital Signs (last 24 hours): Temp Pulse Resp BP Pulse Ox 98.6 F 91 H 20 114/72 98 12/22/17 15:00 12/22/17 15:00 12/22/17 15:00 12/22/17 15:00 12/22/17 15:00 Intake and Output: 12/22/17 12/22/17 06:59 18:59 Intake Total 3200 2100 Balance 3200 2100 - Medications Medications: Current Medications Clotrimazole (Mycelex John) 10 mg PO TID [facility] Last Admin: 12/22/17 17:28 Dose: 10 mg Gabapentin (Neurontin) 1,600 mg PO BID [facility] Last Admin: 12/22/17 17:28 Dose: 1,600 mg Sodium Chloride (Sodium Chloride 0.9%) 1,000 mls @ 80 mls/hr IV .[id number] [facility] Last Admin: 12/22/17 11:07 Dose: Not Given Lactated Ringer's (Lactated Ringer's) 1,000 mls @ 200 mls/hr IV .Q5H [facility] Last Admin: 12/22/17 09:40 Dose: 200 mls/hr Ceftriaxone Sodium (Rocephin Iv 1 Gm Duplex) 50 mls @ 100 mls/hr IVPB DAILY [facility] PRN Reason: Protocol Last Admin: 12/22/17 12:34 Dose: 100 mls/hr Insulin Aspart (Novolog) 0 unit SC ACHS ED[facility]UND PRN Reason: Protocol Last Admin: 12/22/17 16:47 Dose: 2 unit Morphine Sulfate (Morphine) 0.5 mg IVP Q4 PRN PRN Reason: Pain, moderate (4-7) Last Admin: 12/22/17 14:02 Dose: 0.5 mg Pantoprazole Sodium (Protonix Inj) 40 mg IVP DAILY [facility] Last Admin: 12/22/17 09:37 Dose: 40 mg Polyethylene Glycol (Miralax) 17 gm PO BID [facility] Last Admin: 12/22/17 17:27 Dose: 17 gm - Labs Labs: 12/22/17 07:09 12/22/17 07:09 PT 10.5 SECONDS (9.7-12.2) 12/19/17 20:20 INR 0.9 12/19/17 20:20 APTT 35 SECONDS (21-34) H 12/19/17 20:20 Attending/Attestation - Attestation I have personally seen and examined this patient.: Yes I have fully participated in the care of the patient.: Yes I have reviewed all pertinent clinical information, including history, physical exam and plan: Yes Notes (Text): 12/22/17 18:19 47 year old female with h/o HCV, DM admitted with abdominal pain and jaundice, found to have biliary sludge s/p ERCP, acute pancreatitis on IVF, PUD (h pylori negative). Monitor daliy lfts. Recommend Liver biopsy for further eval of cholestatis hepatitis/jaundice. Recommend PPI for PUD. Bowel regimen for constipation.
[2017-12-22] MEDS: cefTRIAXone IV 1 gm in Dextros 50 ML IVPB SCH (12:34)
[2017-12-22 12:50] LABS: SQUAMOUS EPITHIAL < 1 /hpf (0-5); URINE AMORPHOUS SEDIMENT FEW /ul (<OCC); URINE BACTERIA OCC (<OCC); URINE BILIRUBIN NEGATIVE (NEGATIVE); URINE BLOOD NEGATIVE (NEGATIVE); URINE CLARITY Hazy (Clear); URINE COLOR Amber (YELLOW); URINE GLUCOSE (UA) 3+ mg/dL (Normal); URINE LEUKOCYTE ESTERASE 3+ Leu/uL (Negative); URINE PROTEIN NEGATIVE (NEGATIVE); WBC CLUMPS FEW /hpf
[2017-12-22] MEDS: POLYETHYLENE GLYCOL 3350 17 GM/Dose PACKET PO SCH ×2 (14:27→17:27)
--- NOTE | 2017-12-22 15:30 | CP.PCM.PN ---
Subjective - Date & Time of Evaluation Date of Evaluation: 12/22/17 Time of Evaluation: 08:00 - Subjective Subjective: no fever lft's remain elevated cultures neg so far cont iv rx Objective - Vital Signs/Intake and Output Vital Signs (last 24 hours): Temp Pulse Resp BP Pulse Ox 98.3 F 90 20 128/87 96 12/22/17 07:06 12/22/17 07:06 12/22/17 07:06 12/22/17 07:06 12/22/17 07:06 Intake and Output: 12/22/17 12/22/17 06:59 18:59 Intake Total 3200 Balance 3200 - Medications Medications: Current Medications Clotrimazole (Mycelex John) 10 mg PO TID [facility] Last Admin: 12/22/17 14:02 Dose: 10 mg Gabapentin (Neurontin) 1,600 mg PO BID [facility] Last Admin: 12/22/17 09:58 Dose: 1,600 mg Sodium Chloride (Sodium Chloride 0.9%) 1,000 mls @ 80 mls/hr IV .[id number] [facility] Last Admin: 12/22/17 11:07 Dose: Not Given Lactated Ringer's (Lactated Ringer's) 1,000 mls @ 200 mls/hr IV .Q5H [facility] Last Admin: 12/22/17 09:40 Dose: 200 mls/hr Ceftriaxone Sodium (Rocephin Iv 1 Gm Duplex) 50 mls @ 100 mls/hr IVPB DAILY [facility] PRN Reason: Protocol Last Admin: 12/22/17 12:34 Dose: 100 mls/hr Insulin Aspart (Novolog) 0 unit SC ACHS EDMUND PRN Reason: Protocol Last Admin: 12/22/17 12:12 Dose: Not Given Morphine Sulfate (Morphine) 0.5 mg IVP Q4 PRN PRN Reason: Pain, moderate (4-7) Last Admin: 12/22/17 14:02 Dose: 0.5 mg Pantoprazole Sodium (Protonix Inj) 40 mg IVP DAILY [facility] Last Admin: 12/22/17 09:37 Dose: 40 mg Polyethylene Glycol (Miralax) 17 gm PO BID [facility] Last Admin: 12/22/17 14:27 Dose: 17 gm - Labs Labs: 12/22/17 07:09 12/22/17 07:09 PT 10.5 SECONDS (9.7-12.2) 12/19/17 20:20 INR 0.9 12/19/17 20:20 APTT 35 SECONDS (21-34) H 12/19/17 20:20 - Constitutional Appears: Chronically Ill - Head Exam Head Exam: NORMOCEPHALIC - Eye Exam Eye Exam: Scleral icterus - ENT Exam ENT Exam: Mucous Membranes Dry - Neck Exam Neck Exam: absent: Lymphadenopathy - Respiratory Exam Respiratory Exam: Decreased Breath Sounds - Cardiovascular Exam Cardiovascular Exam: REGULAR RHYTHM - GI/Abdominal Exam GI & Abdominal Exam: Distended, Soft Assessment and Plan (1) Hepatitis C Status: Acute (2) Pancreatitis Status: Acute (3) Diabetes mellitus type 2 with complications, uncontrolled Status: Acute
[2017-12-23 01:29] VITALS: O2SAT 96
--- NOTE | 2017-12-23 02:54 | PN ---
DATE: SUBJECTIVE: The patient was seen and examined at the bedside, sitting comfortably. Still having abdominal pain. According to patient, pain decreased; now after eating, pain is back to 10/10. Problem with urination, had bowel movement, tolerated the food. Seen by Infectious Diseases, Dr. Ferrari. I started her on antibiotics. REVIEW OF SYSTEMS: Ten-point review of systems conducted and negative other than above. PHYSICAL EXAMINATION: VITAL SIGNS: Temperature 98.3, pulse 90, respiratory rate 20, blood pressure 128/87, pulse oximetry 96. HEENT: Head, normocephalic, atraumatic. Eyes: PERRLA. Extraocular muscles intact. Conjunctivae clear. Nose patent. Mucous membranes are moist. NECK: Supple. No carotid bruits. No JVD or thyromegaly. CHEST: Bilaterally symmetrical. HEART: S1, S2 positive. LUNGS: Clear to auscultation. ABDOMEN: Soft. Bowel sounds positive. No organomegaly. EXTREMITIES: No edema, no cyanosis. NEUROLOGIC: The patient is awake, alert. Moving all four extremities. No focal deficits. MEDICATIONS: Mycelex Troches, Neurontin MS, lactated Ringer's, insulin, morphine, pantoprazole. LABS: White blood cell is 5.3, hemoglobin 11.8, hematocrit 36, platelets 141. Sodium 139, potassium 4.3, BUN 12, creatinine 0.6, glucose 213. ASSESSMENT AND PLAN: Ms. Alexandre Esquivel is a 47-year-old female with history of hepatitis C, fibromyalgia, diabetes mellitus, came to emergency room complaining of abdominal pain, flank pain, and jaundice, status post endoscopic retrograde cholangiopancreatography, endoscopic ultrasound, and esophagogastroduodenoscopy, gastric and duodenal ulceration, abnormal biliary duct sludge extraction and sphincterotomy. Acute pancreatitis, improving, but after giving food, the pain is back. Jaundice. History of constipation. TIPS procedure's CT negative. Autoimmune workup pending. The patient has hepatitis C. Advance diet to low fat as per GI. Continue MiraLAX. Recommended outpatient followup with laboratory geneticist. Recommended liver biopsy, pain management. Seen by Dr. Ferrari, Infectious Disease and Dr. De La O in GI. No fever. Cultures are negative so far. Continue IV antibiotics per Infectious Disease. The patient has diabetes mellitus type 2 with complications uncontrolled. Urinary tract infection, getting antibiotics. Ovarian mass is seen by Dr. Lauren Thomas, started ceftriaxone. Oral candidiasis, started on Mycelex troches, Protonix. We will follow up. Jacklyn Gordon MD ROSA
[2017-12-23] MEDS: (Novolog) Insulin Aspart, Recombinant 100 u/ml 10 ml vial SC SCH ×2 (07:56→11:57)
[2017-12-23 08:17] VITALS: BP 108/71; PULSE 87; TEMP 98.4
--- NOTE | 2017-12-23 08:48 | CP.PCM.PN ---
<Kanchan Thomas - Last Filed: 12/23/17 10:01> Subjective - Date & Time of Evaluation Date of Evaluation: 12/23/17 Time of Evaluation: 07:30 - Subjective Subjective: PGY4 GI Follow-up Pt seen and examined bedside tolerating diet Denies any abd pain +BM ROS: 10 point ROS conducted neg other than above Objective - Vital Signs/Intake and Output Vital Signs (last 24 hours): Temp Pulse Resp BP Pulse Ox 98.4 F 87 20 108/71 96 12/23/17 08:16 12/23/17 08:16 12/23/17 08:16 12/23/17 08:16 12/23/17 08:16 Intake and Output: 12/23/17 12/23/17 06:59 18:59 Intake Total 1800 Balance 1800 - Medications Medications: Current Medications Clotrimazole (Mycelex John) 10 mg PO TID [facility] Last Admin: 12/22/17 17:28 Dose: 10 mg Gabapentin (Neurontin) 1,600 mg PO BID [facility] Last Admin: 12/22/17 17:28 Dose: 1,600 mg Sodium Chloride (Sodium Chloride 0.9%) 1,000 mls @ 80 mls/hr IV .[id number] [facility] Last Admin: 12/22/17 11:07 Dose: Not Given Ceftriaxone Sodium (Rocephin Iv 1 Gm Duplex) 50 mls @ 100 mls/hr IVPB DAILY [facility] PRN Reason: Protocol Last Admin: 12/22/17 12:34 Dose: 100 mls/hr Insulin Aspart (Novolog) 0 unit SC ACHS [facility] PRN Reason: Protocol Last Admin: 12/23/17 07:56 Dose: 3 unit Morphine Sulfate (Morphine) 0.5 mg IVP Q4 PRN PRN Reason: Pain, moderate (4-7) Last Admin: 12/23/17 00:15 Dose: 0.5 mg Pantoprazole Sodium (Protonix Inj) 40 mg IVP DAILY [facility] Last Admin: 12/22/17 09:37 Dose: 40 mg Polyethylene Glycol (Miralax) 17 gm PO BID [facility] Last Admin: 12/22/17 17:27 Dose: 17 gm - Labs Labs: 12/22/17 07:09 12/22/17 07:09 PT 10.5 SECONDS (9.7-12.2) 12/19/17 20:20 INR 0.9 12/19/17 20:20 APTT 35 SECONDS (21-34) H 12/19/17 20:20 - Constitutional Appears: Well, No Acute Distress - Head Exam Head Exam: ATRAUMATIC, NORMOCEPHALIC - Eye Exam Eye Exam: Normal appearance - ENT Exam ENT Exam: Mucous Membranes Moist, Normal Exam - Neck Exam Neck Exam: Normal Inspection - Respiratory Exam Respiratory Exam: Clear to Ausculation Bilateral, NORMAL BREATHING PATTERN. absent: Rhonchi, Wheezes, Respiratory Distress - GI/Abdominal Exam GI & Abdominal Exam: Soft, Normal Bowel Sounds. absent: Distended, Guarding, Rigid, Tenderness - Neurological Exam Neurological Exam: Alert, Awake, Oriented x3 - Psychiatric Exam Psychiatric exam: Normal Affect, Normal Mood - Skin Skin Exam: Dry, Intact, Normal Color, Warm Assessment and Plan - Assessment and Plan (Free Text) Assessment: Alexandre Esquivel is a 47F w/ hx of Hep c?, fibromyalgia, DM who presents to the ER with complaints of abd pain and jaundice. S/p ERCP/EUS/EGD: gastric and duodenal ulceration; abnormal biliary ducts, sludge extraction and sphincterotomy Acute Pancreatitis, improving Juandice Elevated LFTS, etiology unknown;DDx: autoimmune, PSC, HCC Constipation Plan: -CT reviewed and did not reveal and pancreatic lesions -Triple Phase CT, Neg HCC -complete Autoimmune work-up pending -Hep C antibody + -Continue miralax BID as an outp -recommend outpt follow-up with metal template maker -recommend liver biopsy, can be done as an oupt -follow-up with Dr Mcadams as an outpt, contact info given -pain management as per primary team D/W Dr. De La O <Tawanda De La O - Last Filed: 12/23/17 10:23> Objective - Vital Signs/Intake and Output Vital Signs (last 24 hours): Temp Pulse Resp BP Pulse Ox 98.4 F 87 20 108/71 96 12/23/17 08:16 12/23/17 08:16 12/23/17 08:16 12/23/17 08:16 12/23/17 08:16 Intake and Output: 12/23/17 12/23/17 06:59 18:59 Intake Total 1800 Balance 1800 - Medications Medications: Current Medications Clotrimazole (Mycelex John) 10 mg PO TID [facility] Last Admin: 12/23/17 09:48 Dose: 10 mg Gabapentin (Neurontin) 1,600 mg PO BID [facility] Last Admin: 12/23/17 09:48 Dose: 1,600 mg Ceftriaxone Sodium (Rocephin Iv 1 Gm Duplex) 50 mls @ 100 mls/hr IVPB DAILY [facility] PRN Reason: Protocol Last Admin: 12/23/17 09:49 Dose: 100 mls/hr Insulin Aspart (Novolog) 0 unit SC ACHS [facility] PRN Reason: Protocol Last Admin: 12/23/17 07:56 Dose: 3 unit Morphine Sulfate (Morphine) 0.5 mg IVP Q4 PRN PRN Reason: Pain, moderate (4-7) Last Admin: 12/23/17 00:15 Dose: 0.5 mg Pantoprazole Sodium (Protonix Inj) 40 mg IVP DAILY [facility] Last Admin: 12/23/17 09:49 Dose: 40 mg Polyethylene Glycol (Miralax) 17 gm PO BID [facility] Last Admin: 12/23/17 09:48 Dose: Not Given - Labs Labs: 12/22/17 07:09 12/22/17 07:09 PT 10.5 SECONDS (9.7-12.2) 12/19/17 20:20 INR 0.9 12/19/17 20:20 APTT 35 SECONDS (21-34) H 12/19/17 20:20 Attending/Attestation - Attestation I have personally seen and examined this patient.: Yes I have fully participated in the care of the patient.: Yes I have reviewed all pertinent clinical information, including history, physical exam and plan: Yes Notes (Text): 12/23/17 10:23 47 year old female with h/o HCV, DM admitted with abdominal pain and jaundice, found to have biliary sludge s/p ERCP, acute pancreatitis on IVF, PUD (h pylori negative). Monitor daliy lfts. Recommend Liver biopsy for further eval of cholestatis hepatitis/jaundice. Recommend PPI for PUD. Bowel regimen for constipation. Biopsy can be done as outpatient. Will sign off.
[2017-12-23] MEDS: POLYETHYLENE GLYCOL 3350 17 GM/Dose PACKET PO SCH (09:48)
[2017-12-23] MEDS: cefTRIAXone IV 1 gm in Dextros 50 ML IVPB SCH (09:49)
[2017-12-23] MEDS ORDERED: Influenza Vaccine 60 mcg/0.5 mL SYR (4YR UP) IM ONE (10:00)
[2017-12-23 10:57] LABS: HEMOGLOBIN 12.4 g/dL (11.0-16.0); WHITE BLOOD COUNT 5.8 K/uL (4.8-10.8)
[2017-12-23 11:02] LABS: PROTHROMBIN TIME 11.4 SECONDS (9.7-12.2)
[2017-12-23 11:03] LABS: MEAN CELL VOLUME 88.8 fL (81.0-99.0); MEAN CORPUSCULAR HEMOGLOBIN 29.4 pg (27.0-31.0); MEAN CORPUSCULAR HGB CONC 33.2 g/dL (33.0-37.0); MEAN PLATELET VOLUME 11.5 fL (7.2-11.7); RBC 4.23 Mil/uL (3.80-5.20); RED CELL DISTRIBUTION WIDTH 16.5 % (11.5-14.5)
[2017-12-23 11:29] LABS: ALB/GLOB RATIO 0.8 (1.0-2.1); ALT/SGPT 511 U/L (9-52); AST/SGOT 666 U/L (14-36); BLOOD UREA NITROGEN 9 mg/dL (7-17); CALCIUM 8.5 mg/dl (8.6-10.4); GFR AFRICAN-AMERICAN > 60; GFR NON-AFRICAN AMERICAN > 60
[2017-12-23 12:00] LABS: LYMPH # 1.9 K/uL (1.0-4.3); NEUT # 3.7 K/uL (1.8-7.0)
[2017-12-23 12:01] LABS: EOS # 0.1 K/uL (0.0-0.7); MONO # 0.1 K/uL (0.0-0.8)
--- NOTE | 2017-12-23 15:56 | CP.PCM.PN ---
Subjective - Date & Time of Evaluation Date of Evaluation: 12/23/17 Time of Evaluation: 11:00 - Subjective Subjective: Awake, alert, no sob or acute abdominal pains, NAD. Objective - Vital Signs/Intake and Output Vital Signs (last 24 hours): Temp Pulse Resp BP Pulse Ox 98.4 F 87 20 108/71 96 12/23/17 08:16 12/23/17 08:16 12/23/17 08:16 12/23/17 08:16 12/23/17 08:16 Intake and Output: 12/23/17 12/23/17 06:59 18:59 Intake Total 1800 650 Balance 1800 650 - Labs Labs: 12/23/17 10:52 12/23/17 10:52 PT 11.4 SECONDS (9.7-12.2) 12/23/17 10:52 INR 1.0 12/23/17 10:52 APTT 35 SECONDS (21-34) H 12/19/17 20:20 Assessment and Plan - Assessment and Plan (Free Text) Assessment: Patient is seen and examined. Alert and orientedx3, denies acute pain in the abdomen, tolerating diet, no vomiting, no distress.Discussed with DR Gordon, plan to discharge home on cipro and protonix and advised to follow uo with DR Hassan in 1 week.
--- NOTE | 2017-12-28 06:55 | DS ---
CHIEF COMPLAINT: Fatigue, poor appetite, abdominal pain. HISTORY OF PRESENT ILLNESS: The patient is a 47 years old female with past medical history of hepatitis C, came to the emergency room for evaluation of generalized malaise, poor appetite, not eating very well, weakness started about one month ago, increasing slowly. Now she is feeling very weak, feeling of pins and needles to her extremities and noted her eyes are turning yellow. No fever, no chills. No hematuria. No hematochezia. The patient is complaining of increasing bruising. Readmitted the patient, did CAT scan of abdomen and pelvis; went for fluoroscopy, endoscopy. Abdomen, pelvis, transvaginal ultrasound done. Liver CT done. Seen by Dr. Tawanda De La O, client services administrator. ID, Dr. Freddy Ferrari saw the patient for hepatitis C. For adnexal mass, was seen by Dr. Lauren Thomas. Dr. Lauren Thomas had suggested followup as outpatient. The patient was given food, slowly increased, the patient tolerated. Discharged home with followup, especially GI, Oncology, DEMAND PLANNING ANALYST and primary care physician. Prescription of medications was given by Diya Evans NP. All consultants cleared the patient for discharge. PAST MEDICAL HISTORY: Diabetes mellitus, hepatitis C, history of cholecystectomy, history of excision of a perineal abscess. FAMILY HISTORY: Unknown. HABITS: No drugs, no ethanol, no smoking. ALLERGIES: THE PATIENT IS ALLERGIC TO HYDROMORPHONE. REVIEW OF SYSTEMS: The patient seen and examined at bedside on 12/23/2017. I am doing discharge summary for 12/23/2017. Looking comfortable, tolerated diet, denied any abdominal pain, and has bowel movement. No nausea or vomiting. No fever, no chills. No headache, no dizziness. Weakness is improving. Review of systems, 10-point conducted, negative other than above. PHYSICAL EXAMINATION: VITAL SIGNS: Temperature 98.4, pulse 87, respiratory rate 20, blood pressure 108/71, pulse oximetry 96. HEENT: Head: Normocephalic, atraumatic. Eyes: PERRLA. Extraocular movements intact. Conjunctivae clear. Nose patent. Mucous membranes moist. NECK: Supple. No carotid bruits. No JVD or thyromegaly. CHEST: Bilaterally symmetrical. HEART: S1 and S2 positive. LUNGS: Clear to auscultation. ABDOMEN: Soft. Bowel sounds present. No organomegaly. EXTREMITIES: No edema, no cyanosis. NEUROLOGIC: The patient is awake and alert, moving all 4 extremities. No focal deficits. MEDICATIONS: Mycelex John, Neurontin, Adnexa, ceftriaxone, Novolog, morphine, pantoprazole, MiraLax. LABORATORY DATA: White blood cells 5.3, hemoglobin 11.8, hematocrit 36, platelets 141. Sodium 136, potassium 4.3, BUN 12, creatinine 0.3, glucose 213. ASSESSMENT AND PLAN: The patient is a 47 years old lady with diabetes mellitus, not very well controlled, came with abdominal pain, history of hepatitis C, fibromyalgia, has jaundice. ERCP/EUS/EGD found gastritis, jejunal ulceration, abnormal biliary ducts with large obstruction and sphincterotomy done by the client services administrator, acute pancreatitis improved, tolerated the food. Elevated liver function tests, etiology may be hepatitis C. Constipation, but did bowel movement today, the day of discharge. CT scan reviewed. There is no pancreatic lesion. CT negative. Hepatitis C antibody positive. Continue MiraLax b.i.d. as outpatient. Need outpatient vocational nurse followup. Recommended liver biopsy can be done as outpatient. The patient was informed to follow up with her vocational nurse and primary care physician for liver biopsy. Offer was given to follow up with Dr. Mcadams. Contact information was given to the patient. Pain management was done. Appreciated Dr. De La O's input. Discussion done with Diya Evans NP, the planning of discharge home on Cipro and Protonix and advised to follow up especially GI and DEMAND PLANNING ANALYST. The patient understands and she is oriented x3. Prescription given by Diya. Jacklyn Gordon MD [facility]
== END 2017-12-23 13:53 | disposition home or self-care (01) | DRG 207 ==
LOC: C.ER 18:41 → C.3T 23:50
PROVIDERS: ADMIT Internal Medicine; ATTEND Internal Medicine
PROC: 0F778ZZ Dilation of Common Hepatic Duct, Via Natural or Artificial Opening Endoscopic (ICD-10-PCS; 2017-12-20)
PROC: 0DJ08ZZ Inspection of Upper Intestinal Tract, Via Natural or Artificial Opening Endoscopic (ICD-10-PCS; 2017-12-20)
PROC: 0FC98ZZ Extirpation of Matter from Common Bile Duct, Via Natural or Artificial Opening Endoscopic (ICD-10-PCS; principal; 2017-12-20 13:59)
PROC: 0F798ZZ Dilation of Common Bile Duct, Via Natural or Artificial Opening Endoscopic (ICD-10-PCS; 2017-12-20 13:59)
DX: K80.51 Calculus of bile duct without cholangitis or cholecystitis with obstruction (principal); K85.90 Acute pancreatitis without necrosis or infection, unspecified; B19.20 Unspecified viral hepatitis C without hepatic coma; B37.0 Candidal stomatitis; E11.40 Type 2 diabetes mellitus with diabetic neuropathy, unspecified; E11.65 Type 2 diabetes mellitus with hyperglycemia; M79.7 Fibromyalgia; K29.00 Acute gastritis without bleeding; K26.9 Duodenal ulcer, unspecified as acute or chronic, without hemorrhage or perforation

== ENCOUNTER 2018-01-10 08:17 | Day surgery (SDC) | payer MEDICAID ==
[2018-01-08 08:29] VITALS: BMI 26.0
[2018-01-10] MEDS ORDERED: (Novolin R) Insulin Human Regular 100 units/ml vial ONE (09:32)
[2018-01-10] MEDS ORDERED: Propofol 10 mg/ml Inj (20 ML) ONE (10:10)
[2018-01-10] MEDS ORDERED: Midazolam 2 MG/2 ML VIAL ONE ×2 (10:10)
[2018-01-10] MEDS ORDERED: Absorbable Gelatin Sponge Size 12-7 ONE (10:27)
--- NOTE | 2018-01-10 10:33 | CP.SDSHP ---
Same Day Surgery H & P - History Proposed Procedure: LIver biopsy Pre-Op Diagnosis: Hepatitis C - Allergies Allergies: Allergies hydromorphone [From Dilaudid] Allergy (Verified 12/19/17 18:53) SHORTNESS OF BREATH - Physical Exam Vital Signs: Vital Signs 01/10/18 09:02 Temperature 98.9 F Pulse Rate 90 Respiratory 18 Rate Blood Pressure 105/73 O2 Sat by Pulse 97 Oximetry Mental Status: Alert & Oriented x3 Neuro: WNL Heart: WNL Lungs: WNL GI: WNL - Impression Impression: Pt with hepatitis C and abnormal LFTs referred for liver biopsy. Plan US guided liver biopsy. Informed consent obtained. Pt. Evaluated Today:Candidate for Anesthesia & Procedure: Yes (ASA 3 Malampati 3) - Date & Time Date: 01/10/18 Time: 10:30 Short Stay Discharge - Short Stay Discharge Admitting Diagnosis/Reason for Visit: OTHER DISORDERS OF BILIRUBIN METABOLISM/ CHRONIC Disposition: HOME/ ROUTINE
--- NOTE | 2018-01-10 10:34 | PCM.SURG1 ---
Surgeon's Initial Post Op Note - Surgeon's Notes Surgeon: Faisal James MD Ingot Weigher: NONE Type of Anesthesia: IV Sedation Pre-Operative Diagnosis: Abnormal LFTs Operative Findings: US showed an unremarkable left hepatic lobe Post-Operative Diagnosis: Abnormal LFTs Operation Performed: US guided liver biopsy Specimen/Specimens Removed: 18 gauge core specimen x 3 Estimated Blood Loss: EBL {In ML}: 2 Blood Products Given: N/A Drains Used: No Drains Post-Op Condition: Good Date of Surgery/Procedure: 01/10/18 Time of Surgery/Procedure: 10:30
--- NOTE | 2018-01-10 10:43 | US ---
PROCEDURE: Date of procedure: 01/10/2018 Procedure: 1. Ultrasound-guided core liver biopsy, CPT 86420 2. Ultrasound guidance for biopsy, 41572 Medications: The patient is sedated by the anesthesiologist. HISTORY: Abnormal LFTs TECHNIQUE: Following informed consent and procedure time-out, the patient was placed supine on bed and limited ultrasound showed a normal appearing left hepatic lobe. After patient abdomen was prepped and draped in the usual sterile fashion and the skin was anesthetized with 2% lidocaine, an 18 gauge core needle was advanced percutaneously under direct ultrasound guidance into the left hepatic lobe. Upon confirmation of needle position, three 18 gauge core specimens were obtained and sent for routine pathology. The biopsy to tract was then embolized with Gelfoam. A post biopsy ultrasound showed no hematoma. A dressing was applied. IMPRESSION: Ultrasound-guided core biopsy left hepatic lobe. There were no immediate complications.
[2018-01-10] MEDS ORDERED: Sodium Chloride 0.9% 1,000 ML IV ONE (10:53)
[2018-01-10 12:27] VITALS: TEMP 97.7
[2018-01-10 12:28] VITALS: BP 105/71; PULSE 94; RESP 18; O2SAT 98
== END 2018-01-10 12:15 | disposition home or self-care (01) ==
LOC: C.SPRAD 08:17
PROVIDERS: ATTEND Radiology Vascular & Interventional Radiology
DX: B19.20 Unspecified viral hepatitis C without hepatic coma (principal); K83.1 Obstruction of bile duct; E80.6 Other disorders of bilirubin metabolism; R79.89 Other specified abnormal findings of blood chemistry
CPT/HCPCS: 47000; 76942; 82948; 88307; 88313; J2250; J2704; J7040

== ENCOUNTER 2018-02-22 17:48 | Emergency (ER) | payer MEDICAID ==
[2018-02-22 17:49] VITALS: BMI 26.0
[2018-02-22 17:56] VITALS: BP 179/102; PULSE 102; RESP 20; TEMP 98.2; O2SAT 98
[2018-02-22 18:49] LABS: HCG,QUALITATIVE URINE NEGATIVE (NEGATIVE)
[2018-02-22 19:00] LABS: SQUAMOUS EPITHIAL 25 /hpf (0-5); URINE BACTERIA FEW (<OCC); URINE BILIRUBIN NEGATIVE (NEGATIVE); URINE BLOOD 1+ (NEGATIVE); URINE CLARITY Hazy (Clear); URINE GLUCOSE (UA) 2+ mg/dL (Normal); URINE PROTEIN 3+ mg/dL (NEGATIVE); URINE UROBILINOGEN NORMAL mg/dL (0.2-1.0)
[2018-02-22 19:01] LABS: URINE COLOR YELLOW (YELLOW); URINE LEUKOCYTE ESTERASE 1+ Leu/uL (Negative)
--- NOTE | 2018-02-22 19:56 | C.PDOC ---
Chief Complaint (Nursing): Lower Extremity Problem/Injury Past Medical History Vital Signs: Last Vital Signs Temp 98.2 F 02/22/18 17:55 Pulse 102 H 02/22/18 17:55 Resp 20 02/22/18 17:55 BP 179/102 H 02/22/18 17:55 Pulse Ox 98 02/22/18 17:55 - Medical History PMH: Asthma, Diabetes, Fractures (RIGHT FOOT), Gall Bladder Disease, Hepatitis ( C), Pancreatitis Denies: Chronic Kidney Disease Surgical History: Cholecystectomy, Endoscopy - [facility] Procedures (12/19/17) DILATION OF COMMON BILE DUCT, ENDO (12/19/17) EXTIRPATION OF MATTER FROM COMMON BILE DUCT, ENDO (12/19/17) INCIS PERIANAL ABSCESS (04/12/15) INSPECTION OF UPPER INTESTINAL TRACT, ENDO (12/19/17) VACCINATION NEC (04/12/15) Family History: States: Unknown Family Hx - Social History Hx Alcohol Use: No Hx Substance Use: No - Immunization History Hx Tetanus Toxoid Vaccination: No Hx Influenza Vaccination: Yes Hx Pneumococcal Vaccination: Yes ED Course And Treatment O2 Sat by Pulse Oximetry: 98 Disposition Counseled Patient/Family Regarding: Studies Performed, Diagnosis - Disposition Disposition Time: 19:56
--- NOTE | 2018-02-22 20:38 | C.PDOC ---
History Of Present Illness Patient is a 48 y/o female who presents to the ED with complaints of bilateral leg edema and right foot pain for the last 2 days. Patient reports to have fallen while walking at home and sustained right foot injury; admits to Hx of peripheral neuropathy but can still feel pain in right foot. Patient claims PMD prescribed an unknown "water pill" 3 days ago and notes drinking plenty of water since then as well. [place] patient was recently [place] tramadol. No other physical complaints at this time. Time Seen by Provider: 02/22/18 19:57 Chief Complaint (Nursing): Lower Extremity Problem/Injury History Per: Patient History/Exam Limitations: no limitations Onset/Duration Of Symptoms: Days (2) Current Symptoms Are (Timing): Still Present Recent travel outside of the [place]: No - Ankle/Foot Description Of Injury: Fell Past Medical History Reviewed: Historical Data, Nursing Documentation, Vital Signs Vital Signs: Last Vital Signs Temp 98.2 F 02/22/18 17:55 Pulse 102 H 02/22/18 17:55 Resp 20 02/22/18 17:55 BP 179/102 H 02/22/18 17:55 Pulse Ox 98 02/22/18 23:03 - Medical History PMH: Asthma, Diabetes, Fractures (RIGHT FOOT), Gall Bladder Disease, Hepatitis ( C), Pancreatitis Denies: Chronic Kidney Disease Surgical History: Cholecystectomy, Endoscopy - [facility] Procedures (12/19/17) DILATION OF COMMON BILE DUCT, ENDO (12/19/17) EXTIRPATION OF MATTER FROM COMMON BILE DUCT, ENDO (12/19/17) INCIS PERIANAL ABSCESS (04/12/15) INSPECTION OF UPPER INTESTINAL TRACT, ENDO (12/19/17) VACCINATION NEC (04/12/15) Family History: States: No Known Family Hx - Social History Hx Tobacco Use: Yes (light smoker) Hx Alcohol Use: No Hx Substance Use: No - Immunization History Hx Tetanus Toxoid Vaccination: No Hx Influenza Vaccination: Yes Hx Pneumococcal Vaccination: Yes Review Of Systems Cardiovascular: Positive for: Edema (bilateral lower extremities) Musculoskeletal: Positive for: Foot Pain (right foot) Physical Exam - Physical Exam Appears: Chronically Ill Skin: Normal Color, Warm, Dry, Ecchymosis (right foot) Head: Atraumatic, Normacephalic Oral Mucosa: Moist Chest: Symmetrical Cardiovascular: Rhythm Regular, No Murmur, JVD Respiratory: Normal Breath Sounds, No Rales, No Rhonchi, No Wheezing Gastrointestinal/Abdominal: Soft, No Tenderness Extremity: Tenderness (right mid-foot), Other (lower extremities obese without edema) Neurological/Psych: Oriented x3, Normal Speech, Normal Cognition ED Course And Treatment - Laboratory Results Result Diagrams: 02/22/18 20:51 02/22/18 20:51 Lab Interpretation: Normal (trop/bnp neg.) ECG: Interpreted By Me ECG Rhythm: Sinus Rhythm ECG Interpretation: Normal O2 Sat by Pulse Oximetry: 98 Pulse Ox Interpretation: Normal - Radiology CXR: Interpreted by Me CXR Interpretation: Yes: Heart Size, Other (+CHF) - Other Rad R Foot X-Ray: Interpreted by Me Interpretation: negative fracture, negative dislocation Progress Note: EKG, blood work, CXR, right foot XR, UA, HCG urine ordered. Ultram administered. re-eval, Percocet, lasix 20 IV Reevaluation Time: 22:26 Reassessment Condition: Improved - Physician Consult Information Outcome Of Conversation: 2214: d/w Dr. Stevens, [employer] Medicine covering for Dr. Leong's pt's. ok to admit tele Medical Decision Making Medical Decision Making: CHF, leg edema symmetrical and mild, LOW susp of DVT ASA, Lasix IV given Cardio Consult R foot sprain (x-ray neg) probably cause of elevated d-dimer defer lovenox for fear of worstening bruising/hematoma Peripheral neuropathy but R foot pain with sprain failed Tramadol, given Percocet on eval 2300: pt had eloped from ED admission cancelled Dr. Stevens (admitting MD) aware Disposition Doctor Will See Patient In The: Hospital Counseled Patient/Family Regarding: Studies Performed, Diagnosis - Disposition Disposition: ELOPEMENT - ER ONLY Disposition Time: 22:29 Condition: GOOD - Clinical Impression Clinical Impression: DM neuropathy, painful, CHF (congestive heart failure) - Scribe Statement The provider has reviewed the documentation as recorded by the Scribe Chela Toribio All medical record entries made by the Scribe were at my direction and personally dictated by me. I have reviewed the chart and agree that the record accurately reflects my personal performance of the history, physical exam, medical decision making, and the department course for this patient. I have also personally directed, reviewed, and agree with the discharge instructions and disposition.
[2018-02-22 20:48] LABS: INR 0.9; PROTHROMBIN TIME 10.3 SECONDS (9.7-12.2)
[2018-02-22 20:54] LABS: BASO # 0.1 K/uL (0.0-0.2); EOS # 0.2 K/uL (0.0-0.7); EOS % 2.3 % (0.0-4.0); HEMOGLOBIN 11.8 g/dL (11.0-16.0); LYMPH # 1.7 K/uL (1.0-4.3); LYMPH % 20.3 % (20.0-40.0); MEAN CELL VOLUME 91.7 fL (81.0-99.0); MEAN CORPUSCULAR HEMOGLOBIN 32.1 pg (27.0-31.0); MEAN PLATELET VOLUME 9.6 fL (7.2-11.7); MONO # 0.6 K/uL (0.0-0.8); MONO % 7.4 % (0.0-10.0); NEUT # 5.6 K/uL (1.8-7.0); RBC 3.68 Mil/uL (3.80-5.20); RED CELL DISTRIBUTION WIDTH 14.2 % (11.5-14.5); WHITE BLOOD COUNT 8.1 K/uL (4.8-10.8)
[2018-02-22 21:06] LABS: ALB/GLOB RATIO 0.7 (1.0-2.1); ALBUMIN 2.6 g/dL (3.5-5.0); ALT/SGPT 39 U/L (9-52); AST/SGOT 56 U/L (14-36); BLOOD UREA NITROGEN 28 mg/dL (7-17); CALCIUM 7.9 mg/dl (8.6-10.4); GFR AFRICAN-AMERICAN > 60; GFR NON-AFRICAN AMERICAN > 60
[2018-02-22 22:04] LABS: B-TYPE NATRIURETIC PEPTIDE 222 pg/mL (0-450)
[2018-02-22] MEDS ORDERED: Oxycodone/Acetaminophen 5/325 mg Tab ONE (22:09)
[2018-02-22] MEDS ORDERED: Oxycodone/Acetaminophen 5/325 mg Tab PO STA (22:12)
--- NOTE | 2018-02-23 06:23 | RAD ---
Chest x-ray single frontal view History: Shortness of breath. Comparison: None available. Findings: Moderate venous congestion. Confluent consolidation at the right lung base with associated small to moderate loculated right pleural effusion. Post treatment interval followup would be helpful. Mild cardiomegaly. Impression: Moderate venous congestion. Confluent consolidation at the right lung base with associated small to moderate loculated right pleural effusion. Post treatment interval followup would be helpful. Mild cardiomegaly.
--- NOTE | 2018-02-23 10:18 | RAD ---
PROCEDURE: Right Foot Radiographs. HISTORY: R foot pain, fell 2 days ago COMPARISON: None. FINDINGS: BONES: There is question of acute nondisplaced fracture in the navicular and medial cuneiform. Bone alignment and mineralization are normal. There is a large plantar calcaneal spur and prominent dorsal calcaneal enthesophyte. JOINTS: Normal. SOFT TISSUES: There is moderate dorsal soft tissue swelling. OTHER FINDINGS: There are atherosclerotic vascular calcifications. IMPRESSION: Suspect acute nondisplaced fractures in the navicular and medial cuneiform. Moderate dorsal soft tissue swelling. If clinically indicated, correlation with CT scan may be performed for further evaluation. Important findings were discussed with DONI Hightower in the ER on 02/23/2018 at 10:15 a.m.
[2018-02-23 22:25] LABS: BARBITURATES, UR NEGATIVE (NEGATIVE); BENZODIAZEPINES, UR NEGATIVE (NEGATIVE); OPIATES, UR NEGATIVE (NEGATIVE); PHENCYCLIDINE, UR NEGATIVE (NEGATIVE)
--- NOTE | 2018-02-26 14:50 | CARD ---
APPROVED REPORT EKG Measurement Heart [id number] <Conclusion> Normal sinus rhythm Low voltage QRS Septal infarct, age undetermined Abnormal ECG
== END 2018-02-22 22:00 | disposition left against medical advice (07) ==
LOC: C.ER 17:48 → C.9E 22:23 → UNDOADMIN 22:23
DX: E11.40 Type 2 diabetes mellitus with diabetic neuropathy, unspecified (principal); I50.9 Heart failure, unspecified; R52 Pain, unspecified; Z72.0 Tobacco use
CPT/HCPCS: 71045; 73630; 80053; 81001; 83880; 84484; 84703; 85025; 85378; 85610; 85730; 93005; 96374; 99283; G0480; J1940

== ENCOUNTER 2018-02-23 14:37 | Inpatient (IN) | payer MEDICAID ==
[2018-02-23 14:37] VITALS: BMI 26.0
[2018-02-23] MEDS ORDERED: Oxycodone/Acetaminophen 5/325 mg Tab PO STA ×2 (15:31→21:04)
[2018-02-23] MEDS ORDERED: Oxycodone/Acetaminophen 5/325 mg Tab ONE ×2 (16:11→21:09)
--- NOTE | 2018-02-23 16:29 | C.PDOC ---
History Of Present Illness <MileyroselineChantellsoledad - Last Filed: 02/23/18 21:50> <Damon Mai - Last Filed: 02/23/18 21:52> 48-year-old female, returns to the emergency department today after leaving AMA yesterday, with complaints of right foot pain, shortness of breath and leg edema. Patient had been admitted for CHF and right foot sprain, and the overnight radiology read the foot XR as (+) acute non displaced fractures in the navicular and medial cuneiform. Chest X-Ray was re-read to show questionable CHF and consolidation in right lower lobe. Patient states she went home because she was upset. No new complaints at this time. (Damon Mai) <Chantell Baronsoledad - Last Filed: 02/23/18 21:50> History Per: Patient History/Exam Limitations: no limitations Current Symptoms Are (Timing): Still Present <Damon Mai - Last Filed: 02/23/18 21:52> Time Seen by Provider: 02/23/18 15:15 Chief Complaint (Nursing): Medical Clearance Past Medical History Reviewed: Historical Data, Nursing Documentation, Vital Signs - Medical History PMH: Asthma, Diabetes, Fractures (RIGHT FOOT), Gall Bladder Disease, Hepatitis ( C), Pancreatitis Surgical History: Cholecystectomy, Endoscopy Family History: States: No Known Family Hx - Social History Hx Tobacco Use: Yes (light smoker) Hx Alcohol Use: No Hx Substance Use: No - Immunization History Hx Tetanus Toxoid Vaccination: No Hx Influenza Vaccination: Yes Hx Pneumococcal Vaccination: Yes <Damon Mai - Last Filed: 02/23/18 21:52> Vital Signs: Last Vital Signs Temp 98.2 F 02/23/18 21:02 Pulse 102 H 02/23/18 21:02 Resp 18 02/23/18 21:02 BP 134/82 02/23/18 21:02 Pulse Ox 100 02/23/18 21:02 - [facility] Procedures (12/19/17) DILATION OF COMMON BILE DUCT, ENDO (12/19/17) EXTIRPATION OF MATTER FROM COMMON BILE DUCT, ENDO (12/19/17) INCIS PERIANAL ABSCESS (04/12/15) INSPECTION OF UPPER INTESTINAL TRACT, ENDO (12/19/17) VACCINATION NEC (04/12/15) Review Of Systems Except As Marked, All Systems Reviewed And Found Negative. Constitutional: Negative for: Fever, Chills Cardiovascular: Positive for: Edema Respiratory: Positive for: Shortness of Breath Gastrointestinal: Negative for: Vomiting Musculoskeletal: Positive for: Foot Pain <Damon Mai - Last Filed: 02/23/18 21:52> Physical Exam - Physical Exam Appears: Non-toxic, No Acute Distress Skin: Normal Color, Warm, Dry, No Rash Head: Atraumatic, Normacephalic Eye(s): bilateral: Normal Inspection, PERRL Nose: Normal Oral Mucosa: Moist Lips: Normal Appearing Neck: Normal ROM Chest: Symmetrical Cardiovascular: Rhythm Regular, No Murmur Respiratory: No Accessory Muscle Use, Rales (Mild, no egophny) Gastrointestinal/Abdominal: Soft, No Tenderness Extremity: Normal ROM, Pedal Edema (3/4 pitting edema to the dorsum of right foot with echymosis), No Deformity, No Swelling Neurological/Psych: Oriented x3, Normal Speech <Damon Mai - Last Filed: 02/23/18 21:52> ED Course And Treatment - Laboratory Results Result Diagrams: 02/23/18 16:33 02/23/18 16:33 <Davion Baron - Last Filed: 02/23/18 21:50> - Laboratory Results Result Diagrams: 02/23/18 16:33 02/23/18 16:33 Lab Interpretation: Normal (bnp neg, trop neg.) ECG: Interpreted By Ak ECG Rhythm: Sinus Rhythm ECG Interpretation: Normal Rate From EC O2 Sat by Pulse Oximetry: 100 (RA) Pulse Ox Interpretation: Normal - Radiology CXR: Interpreted by Ak CXR Interpretation: Yes: Other (+ R>L pleural effusion) - Other Rad CXR X-Ray: Viewed By Ak, Read By Radiologist Interpretation: LUNGS: Possible right lower lobe infiltrate. PLEURA: Small right pleural effusion. No evidence of left pleural effusion. CARDIOVASCULAR: Normal. OSSEOUS STRUCTURES: No significant abnormalities. VISUALIZED UPPER ABDOMEN: Normal. OTHER FINDINGS: None. IMPRESSION: Small right pleural effusion. Possible right lower lobe infiltrate. - CT Scan/US CT Lower Extremity Other Rad Studies (CT/US): Read By Radiologist, Radiology Report Reviewed CT/US Interpretation: FINDINGS: . Soft tissues: There is superficial soft tissue swelling in the right lower. calf at the right ankle and in the right foot. There are vascular. calcifications. . Bones: There is an old healed fracture of the distal fibula with residual. posttraumatic deformity. There degenerative ossicles at the tip of the distal. fibula. There is mild degenerative ossicles adjacent to the medial malleolus. Ankle mortise is maintained. There is no effusion in the ankle joint. There are no hindfoot fractures. There are calcaneal spurs. Tarsal navicular is intact. Cuboid is intact There is a fracture through the. medial cuneiform. There is a linear nondisplaced fracture at the base of the. first metatarsal. There is a fracture through the base of the second. metatarsal. No other fractures are visualized. Joint spaces are maintained. . IMPRESSION: Fracture of the medial/ first cuneiform and bases of the first and. second metatarsals; soft tissue swelling; vascular calcification; old healed. ankle fractures CT Chest Other Rad Studies (CT/US): Read By Radiologist, Radiology Report Reviewed CT/US Interpretation: FINDINGS: Lungs and pleural spaces: Trachea and main bronchi are patent.There is no. pneumothorax. There is a moderately large right pleural effusion. There is a. small left effusion. There is airspace disease greatest in the right lower. lobe. There is less extensive airspace disease in the right middle lobe and. left lower lobes. There is compressive atelectasis in the upper lobes. bilaterally. There are atelectatic changes in both lower lobes. Heart and vasculature: Heart size is normal.There is fluid in pericardial. recesses.Aorta and main pulmonary artery are normal in caliber. Mediastinum: There is shotty mediastinal nodes. There are no pathologically. enlarged hilar nodes. Esophagus is unremarkable. Thyroid: Thyroid is only partially imaged. Bones/joints: There are degenerative changes in the osseus structures. . . Soft tissues: There is body wall edema. . Upper abdomen: There is ascites in the upper abdomen. There is pneumobilia. . IMPRESSION: Large right and small left pleural effusions; right lower lobe. airspace disease/pneumonia with less extensive airspace disease in the left. lower lobe and middle lobes, infiltrate and/or atelectasis ; compressive. atelectasis bilaterally; ascites; body wall edema; shotty mediastinal adenopathy Progress Note: lasix IV,. Rocephin, Azithro IV. percocet PO Reevaluation Time: 21:00 Reassessment Condition: Improved - Physician Consult Information Outcome Of Conversation: 2100: d/w Dr. Ramirez- Sales Ledger Clerk Medicine covering pt 's for Dr. Bynum. ok to ADMIT. 2100: d/w Podiatry Jeremias, covering for Dr. Corazon Valenzuela, will eval <Damon Mai - Last Filed: 02/23/18 21:52> Medical Decision Making <Davion Baron - Last Filed: 02/23/18 21:50> <Damon Mai - Last Filed: 02/23/18 21:52> Medical Decision Making: ? CHF, but normal BNP diuresis started in ED (again, as yesterday) fluid restrict cardiac eval R mod/large pleural effusion ? etiology consider thoracentesis for theraputic and diagnostic empiric abx for CAP R foot fractures See CT now in posterior Foot splint Podiatry Sales Ledger Clerk (Damon Mai) Disposition <Davion Baron - Last Filed: 02/23/18 21:50> Doctor Will See Patient In The: Hospital Counseled Patient/Family Regarding: Studies Performed, Diagnosis - Disposition Disposition Time: 20:43 <Damon Mai - Last Filed: 02/23/18 21:52> - Disposition Disposition: HOSPITALIZED Condition: GOOD - Clinical Impression Clinical Impression: CHF (congestive heart failure), Pleural effusion, right, Diabetes, Foot fracture, right <Davion Baron - Last Filed: 02/23/18 21:50> - Scribe Statement The provider has reviewed the documentation as recorded by the Scribe (Matthew George) <Damon Mai - Last Filed: 02/23/18 21:52> - Scribe Statement Provider Attestation: All medical record entries made by the Scribe were at my direction and personally dictated by me. I have reviewed the chart and agree that the record accurately reflects my personal performance of the history, physical exam, medical decision making, and the department course for this patient. I have also personally directed, reviewed, and agree with the discharge instructions and disposition. (Damon Mai)
[2018-02-23 16:37] LABS: BASO # 0.1 K/uL (0.0-0.2); BASO % 0.8 % (0.0-2.0); EOS # 0.2 K/uL (0.0-0.7); EOS % 1.6 % (0.0-4.0); HEMOGLOBIN 12.2 g/dL (11.0-16.0); LYMPH # 2.1 K/uL (1.0-4.3); LYMPH % 21.7 % (20.0-40.0); MEAN CELL VOLUME 93.6 fL (81.0-99.0); MEAN CORPUSCULAR HGB CONC 34.2 g/dL (33.0-37.0); MEAN PLATELET VOLUME 9.2 fL (7.2-11.7); MONO # 0.7 K/uL (0.0-0.8); MONO % 7.7 % (0.0-10.0); NEUT # 6.5 K/uL (1.8-7.0); NEUT % 68.2 % (50.0-75.0); RBC 3.81 Mil/uL (3.80-5.20); RED CELL DISTRIBUTION WIDTH 14.3 % (11.5-14.5); WHITE BLOOD COUNT 9.6 K/uL (4.8-10.8)
[2018-02-23 16:50] LABS: ALB/GLOB RATIO 0.7 (1.0-2.1); ALBUMIN 2.6 g/dL (3.5-5.0); CALCIUM 7.9 mg/dl (8.6-10.4); GFR AFRICAN-AMERICAN > 60; GFR NON-AFRICAN AMERICAN > 60; INR 0.9; PROTHROMBIN TIME 10.2 SECONDS (9.7-12.2)
[2018-02-23] MEDS ORDERED: (Novolin R) Insulin Human Regular 100 units/ml vial IV STA (16:51)
[2018-02-23 17:01] LABS: B-TYPE NATRIURETIC PEPTIDE 393 pg/mL (0-450)
[2018-02-23] MEDS ORDERED: (Novolin R) Insulin Human Regular 100 units/ml vial ONE (17:02)
[2018-02-23 17:43] LABS: ALT/SGPT 36 U/L (9-52); AST/SGOT 61 U/L (14-36); BLOOD UREA NITROGEN 25 mg/dL (7-17)
--- NOTE | 2018-02-23 18:11 | RAD ---
HISTORY: sob, ? RLL vs CHF COMPARISON: 02/22/2018 TECHNIQUE: Chest PA and lateral FINDINGS: LUNGS: Possible right lower lobe infiltrate. PLEURA: Small right pleural effusion. No evidence of left pleural effusion. CARDIOVASCULAR: Normal. OSSEOUS STRUCTURES: No significant abnormalities. VISUALIZED UPPER ABDOMEN: Normal. OTHER FINDINGS: None. IMPRESSION: Small right pleural effusion. Possible right lower lobe infiltrate.
[2018-02-23] MEDS ORDERED: Iodixanol 320 MG/ML 100 ML BOTTLE IV ONE (18:35)
[2018-02-23] MEDS ORDERED: (Novolin 70/30) NPH/Regular 70/30 Units/ml 10 ml vial SC STA (19:35)
[2018-02-23] MEDS ORDERED: (Novolog Mix 70/30) Insulin Aspart/Insulin Aspar 100 units/ml SC ONE (19:59)
--- NOTE | 2018-02-23 20:23 | CT ---
EXAM: CT Right Lower Extremity Without Intravenous Contrast, Foot EXAM DATE/TIME: 02/23/2018 3:38 PM CLINICAL HISTORY: 48 years old, female; Injury or trauma; Fall; Initial encounter; Fracture, traumatic; Other: Hair line; Foot; Right; Additional info: R navicular FX noted on plane film (ct r foot) TECHNIQUE: Axial computed tomography images of the right foot without intravenous contrast. All CT scans at this facility use one or more dose reduction techniques, viz.: automated exposure control; ma/kV adjustment per patient size (including targeted exams where dose is matched to indication; i.e. head); or iterative reconstruction technique. Coronal and sagittal reformatted images were created and reviewed. COMPARISON: Prior images are not available for review. FINDINGS: Soft tissues: There is superficial soft tissue swelling in the right lower calf at the right ankle and in the right foot. There are vascular calcifications. Bones: There is an old healed fracture of the distal fibula with residual posttraumatic deformity. There degenerative ossicles at the tip of the distal fibula. There is mild degenerative ossicles adjacent to the medial malleolus. Ankle mortise is maintained. There is no effusion in the ankle joint. There are no hindfoot fractures. There are calcaneal spurs. Tarsal navicular is intact. Cuboid is intact There is a fracture through the medial cuneiform. There is a linear nondisplaced fracture at the base of the first metatarsal. There is a fracture through the base of the second metatarsal. No other fractures are visualized. Joint spaces are maintained IMPRESSION: Fracture of the medial/first cuneiform and bases of the first and second metatarsals; soft tissue swelling; vascular calcification; old healed ankle fractures
--- NOTE | 2018-02-23 20:29 | CT ---
EXAM: CT Chest With Intravenous Contrast EXAM DATE/TIME: 02/23/2018 3:30 PM CLINICAL HISTORY: 48 years old, female; Signs and symptoms; Mass, lump, or swelling in the chest and shortness of breath; Additional info: SOB, ? chf vs rll pna/mass TECHNIQUE: Axial computed tomography images of the chest with intravenous contrast. All CT scans at this facility use one or more dose reduction techniques, viz.: automated exposure control; ma/kV adjustment per patient size (including targeted exams where dose is matched to indication; i.e. head); or iterative reconstruction technique. Coronal and sagittal reformatted images were created and reviewed. CONTRAST: 100 mL of visipaque 320 administered intravenously. COMPARISON: There are no prior studies for comparison. FINDINGS: Lungs and pleural spaces: Trachea and main bronchi are patent.There is no pneumothorax. There is a moderately large right pleural effusion. There is a small left effusion. There is airspace disease greatest in the right lower lobe. There is less extensive airspace disease in the right middle lobe and left lower lobes. There is compressive atelectasis in the upper lobes bilaterally. There are atelectatic changes in both lower lobes. Heart and vasculature: Heart size is normal.There is fluid in pericardial recesses.Aorta and main pulmonary artery are normal in caliber. Mediastinum: There is shotty mediastinal nodes. There are no pathologically enlarged hilar nodes. Esophagus is unremarkable. Thyroid: Thyroid is only partially imaged. Bones/joints: There are degenerative changes in the osseus structures. Soft tissues: There is body wall edema. Upper abdomen: There is ascites in the upper abdomen. There is pneumobilia. IMPRESSION: Large right and small left pleural effusions; right lower lobe airspace disease/pneumonia with less extensive airspace disease in the left lower lobe and middle lobes, infiltrate and/or atelectasis; compressive atelectasis bilaterally; ascites; body wall edema; shotty mediastinal adenopathy Additional nonemergent findings as described above.
[2018-02-23] MEDS ORDERED: cefTRIAXone IV 1 gm in Dextros 50 ML IV ONE (20:49)
[2018-02-23] MEDS ORDERED: Azithromycin 500 MG in Sodium Chloride 0.9% 250 ML IV STA (20:49)
[2018-02-23] MEDS ORDERED: cefTRIAXone IV 1 gm in Dextros 50 ML IVPB ONE (21:54)
[2018-02-23] MEDS ORDERED: Sod Polystyrene Sulf 15 gm/60 ml Susp PO ONE (22:01)
[2018-02-23] MEDS ORDERED: Sod Polystyrene Sulf 15 gm/60 ml Susp ONE (22:35)
[2018-02-24] MEDS ORDERED: Oxycodone/Acetaminophen 5/325 mg Tab PO STA (04:15)
[2018-02-24] MEDS ORDERED: Dextrose 50% SYRINGE Inj (50 ml) IV STA (07:08)
[2018-02-24] MEDS ORDERED: Glucagon Recombinant 1 mg Inj IM PRN (07:08)
[2018-02-24] MEDS ORDERED: Dextrose 50% SYRINGE Inj (50 ml) IV PRN (07:08)
--- NOTE | 2018-02-24 07:11 | CP.PCM.CON ---
History of Present Illness - History of Present Illness History of Present Illness: 48-year-old female seen concerning right foot injury. Patient reports to have fallen while walking at home and sustained right foot injury 5 days ago. Daria gabrielfran treatment at [facility] ER 02/22/18 but left AMA. Returns to the emergency department today with complaints of right foot pain, and new onset shortness of breath and leg edema. Patient reports right foot swelling has leveled off though increased form and has noticed moderate amount of bruising. Pt has no recurrent instances of trauma to the right site since leaving AMA. Pt denies recent f/c/cp/n/v/d. PMH: Asthma, Diabetes with neuropathy, Gall Bladder Disease, Hepatitis (C), Pancreatitis Surgical History: Cholecystectomy, Past Patient History - Past Medical History & Family History Past Medical History?: Yes - Past Social History Smoking Status: Light Smoker < 10 Cigarettes Daily - CARDIAC Hx Congestive Heart Failure: Yes - PULMONARY Hx Asthma: Yes - NEUROLOGICAL Hx Neurological Disorder: Yes (NEURPOATHTY) Hx Dizziness: Yes - HEENT Hx HEENT Problems: Yes (HX RETINA BLEEDING) Other/Comment: sclera both eye slightly jaundice - RENAL Hx Chronic Kidney Disease: No - ENDOCRINE/METABOLIC Hx Endocrine Disorders: Yes Hx Diabetes Mellitus Type 2: Yes - HEMATOLOGICAL/ONCOLOGICAL Hx Hepatitis C: Yes - INTEGUMENTARY Hx Dermatological Problems: Yes (SLIGHT JAUNDICE) Other/Comment: sclera both eye slightly jaundice - MUSCULOSKELETAL/RHEUMATOLOGICAL Hx Falls: Yes - GASTROINTESTINAL Hx Gall Bladder Disease: Yes Hx Pancreatitis: Yes - GENITOURINARY/GYNECOLOGICAL Hx Genitourinary Disorders: No Other/Comment: fibroids - PSYCHIATRIC Hx Substance Use: No - SURGICAL HISTORY Hx Cholecystectomy: Yes - ANESTHESIA Hx Anesthesia: Yes Hx Anesthesia Reactions: No Hx Malignant Hyperthermia: No Has any member of the family had a problem w/ anesthesia?: No Meds Allergies/Adverse Reactions: Allergies Allergy/AdvReac Type Severity Reaction Status Date / Time hydromorphone [From Dilaudid] Allergy SHORTNESS Verified 02/23/18 14:49 OF BREATH lidocaine Allergy Verified 02/23/18 14:49 - Medications Medications: Current Medications Dextrose (Dextrose 50% Inj) 50 ml IV STAT STA Stop: 02/24/18 07:09 Dextrose (Dextrose 50% Inj) 0 ml IV STAT PRN; Protocol PRN Reason: Hypoglycemia Protocol Dextrose (Glutose 15) 0 gm PO ONCE PRN; Protocol PRN Reason: Hypoglycemia Protocol Glucagon (Glucagen Diagnostic Kit) 0 mg IM STAT PRN; Protocol PRN Reason: Hypoglycemia Protocol Azithromycin 500 mg/ Sodium (Chloride) 250 mls @ 250 mls/hr IVPB DAILY EDMUND PRN Reason: Protocol Ceftriaxone Sodium 1 gm/ (Sodium Chloride) 100 mls @ 100 mls/hr IVPB DAILY EDMUND PRN Reason: Protocol Dextrose (Dextrose 5% In Water 1000 Ml) 1,000 mls @ 0 mls/hr IV .Q0M PRN; Protocol; Per Protocol PRN Reason: Hypoglycemia Protocol Pneumococcal Polyvalent Vaccine (Pneumovax 23 Vaccine) 0.5 ml IM .ONCE ONE Stop: 02/26/18 11:01 Physical Exam - Constitutional Appears: Well, Non-toxic, No Acute Distress - Extremities Exam Additional comments: Right lower extremity focused. Vascular status intact. Non-pitting edema noted to level and medial forefoot and midfoot. CRF prompt to level of digits. Pedal sensation grossly absent. DERM: 4th interspace and 2nd digit ecchymosis noted extending to dorsum of midfoot. Skin absent bulla, open wounds, lesions, or macerations. Skin turgor intact. MUSK: Tenderness to palpation with focal points of medial and intermediate metatsalal-cuneifrom joints. Guarding to midfoot range of motion absett limitation. Tenderness illicited upon retrograde stress applied to 2nd ray, referred to midfoot level. Retrograde No noted subluxation and laxity. - Neurological Exam Neurological exam: Alert, Oriented x3 - Psychiatric Exam Psychiatric exam: Normal Affect, Normal Mood Results - Vital Signs Recent Vital Signs: Last Vital Signs Temp 97.9 F 02/23/18 23:50 Pulse 71 02/24/18 04:31 Resp 20 02/23/18 23:50 BP 112/65 02/23/18 23:50 Pulse Ox 96 02/23/18 23:50 - Labs Result Diagrams: 02/24/18 07:16 02/24/18 07:16 Labs: Laboratory Results - last 24 hr 02/23/18 02/23/18 02/23/18 16:33 16:33 16:33 WBC 9.6 RBC 3.81 Hgb 12.2 Hct 35.7 MCV 93.6 MCH 32.0 H MCHC 34.2 RDW 14.3 Plt Count 198 MPV 9.2 Neut % (Auto) 68.2 Lymph % (Auto) 21.7 [place] % (Auto) 7.7 Eos % (Auto) 1.6 Baso % (Auto) 0.8 Neut # (Auto) 6.5 Lymph # (Auto) 2.1 [place] # (Auto) 0.7 Eos # (Auto) 0.2 Baso # (Auto) 0.1 PT 10.2 INR 0.9 APTT 31 D-Dimer, Quantitative 568 H Sodium 136 Potassium 5.6 H Chloride 107 Carbon Dioxide 23 Anion Gap 12 BUN 25 H Creatinine 0.7 Est GFR ( Amer) > 60 Est GFR (Non-Af Amer) > 60 POC Glucose (mg/dL) Random Glucose 281 H Calcium 7.9 L Total Bilirubin 0.9 AST 61 H ALT 36 Alkaline Phosphatase 350 H Troponin I < 0.0120 NT-Pro-B Natriuret Pep 393 Total Protein 6.5 Albumin 2.6 L Globulin 3.8 Albumin/Globulin Ratio 0.7 L Alcohol, Quantitative < 10 02/23/18 02/23/18 02/23/18 16:50 18:26 21:49 WBC RBC Hgb Hct MCV MCH MCHC RDW Plt Count MPV Neut % (Auto) Lymph % (Auto) [place] % (Auto) Eos % (Auto) Baso % (Auto) Neut # (Auto) Lymph # (Auto) [place] # (Auto) Eos # (Auto) Baso # (Auto) PT INR APTT D-Dimer, Quantitative Sodium Potassium Chloride Carbon Dioxide Anion Gap BUN Creatinine Est GFR ( Amer) Est GFR (Non-Af Amer) POC Glucose (mg/dL) 329 H 182 H 173 H Random Glucose Calcium Total Bilirubin AST ALT Alkaline Phosphatase Troponin I NT-Pro-B Natriuret Pep Total Protein Albumin Globulin Albumin/Globulin Ratio Alcohol, Quantitative 02/24/18 02/24/18 02/24/18 00:12 06:31 06:36 WBC RBC Hgb Hct MCV MCH MCHC RDW Plt Count MPV Neut % (Auto) Lymph % (Auto) [place] % (Auto) Eos % (Auto) Baso % (Auto) Neut # (Auto) Lymph # (Auto) [place] # (Auto) Eos # (Auto) Baso # (Auto) PT INR APTT D-Dimer, Quantitative Sodium Potassium Chloride Carbon Dioxide Anion Gap BUN Creatinine Est GFR ( Amer) Est GFR (Non-Af Amer) POC Glucose (mg/dL) 56 L 54 L Random Glucose Calcium Total Bilirubin AST ALT Alkaline Phosphatase Troponin I < 0.0120 NT-Pro-B Natriuret Pep Total Protein Albumin Globulin Albumin/Globulin Ratio Alcohol, Quantitative 02/24/18 02/24/18 06:57 07:01 WBC RBC Hgb Hct MCV MCH MCHC RDW Plt Count MPV Neut % (Auto) Lymph % (Auto) [place] % (Auto) Eos % (Auto) Baso % (Auto) Neut # (Auto) Lymph # (Auto) [place] # (Auto) Eos # (Auto) Baso # (Auto) PT INR APTT D-Dimer, Quantitative Sodium Potassium Chloride Carbon Dioxide Anion Gap BUN Creatinine Est GFR ( Amer) Est GFR (Non-Af Amer) POC Glucose (mg/dL) 53 L 50 L Random Glucose Calcium Total Bilirubin AST ALT Alkaline Phosphatase Troponin I NT-Pro-B Natriuret Pep Total Protein Albumin Globulin Albumin/Globulin Ratio Alcohol, Quantitative Assessment & Plan - Assessment and Plan (Free Text) Assessment: 48 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 Plan: PT seen and evaluated. Chart, labs, and vitasl reviewed. Discussed in detail with attending, Dr. Arnold, who endorsed the following plan. X-rays form 02/22 reviewed: cuneiform fracture noted. CT scan reviewed: results show 1st and 2nd metatarsal base fx w/ medial cuneiform fracture, non-displaced. No navicular fracture Pt to remain NWB in posterior splint with crutch assistance. Crutch training to be provided by physical therapy. Pt to be transitioned to fiberglass cast Monday, prior to discharge, to allow immediate post-traumatic edema to ebb. Analgesic control by primary team. Podiatry will continue to follow wile inhouse. Upon discharge pt to follow up with outpatient polo coach Dr. Arnold. - Date & Time Date: 02/24/18 Time: 08:00
[2018-02-24 07:25] LABS: BASO # 0.1 K/uL (0.0-0.2); EOS # 0.2 K/uL (0.0-0.7); HEMOGLOBIN 11.2 g/dL (11.0-16.0); LYMPH # 1.9 K/uL (1.0-4.3); WHITE BLOOD COUNT 8.6 K/uL (4.8-10.8)
[2018-02-24 07:31] LABS: EOS % 2.4 % (0.0-4.0); LYMPH % 22.3 % (20.0-40.0); MEAN CELL VOLUME 93.4 fL (81.0-99.0); MEAN CORPUSCULAR HEMOGLOBIN 32.6 pg (27.0-31.0); MEAN CORPUSCULAR HGB CONC 34.9 g/dL (33.0-37.0); MEAN PLATELET VOLUME 8.9 fL (7.2-11.7); MONO # 0.6 K/uL (0.0-0.8); MONO % 7.3 % (0.0-10.0); NEUT # 5.7 K/uL (1.8-7.0); RBC 3.45 Mil/uL (3.80-5.20); RED CELL DISTRIBUTION WIDTH 14.3 % (11.5-14.5)
--- NOTE | 2018-02-24 08:37 | CP.PCM.PN ---
Subjective - Date & Time of Evaluation Date of Evaluation: 02/24/18 Time of Evaluation: 08:40 - Subjective Subjective: H&P dictated #[id number] Objective - Vital Signs/Intake and Output Vital Signs (last 24 hours): Temp Pulse Resp BP Pulse Ox 97.7 F 70 20 97/64 L 96 02/24/18 07:20 02/24/18 07:40 02/24/18 07:20 02/24/18 07:20 02/24/18 07:20 Intake and Output: 02/24/18 02/24/18 06:59 18:59 Intake Total 240 Balance 240 - Medications Medications: Current Medications Dextrose (Dextrose 50% Inj) 0 ml IV STAT PRN; Protocol PRN Reason: Hypoglycemia Protocol Dextrose (Glutose 15) 0 gm PO ONCE PRN; Protocol PRN Reason: Hypoglycemia Protocol Glucagon (Glucagen Diagnostic Kit) 0 mg IM STAT PRN; Protocol PRN Reason: Hypoglycemia Protocol Azithromycin 500 mg/ Sodium (Chloride) 250 mls @ 250 mls/hr IVPB DAILY EDMUND PRN Reason: Protocol Ceftriaxone Sodium 1 gm/ (Sodium Chloride) 100 mls @ 100 mls/hr IVPB DAILY EDMUND PRN Reason: Protocol Dextrose (Dextrose 5% In Water 1000 Ml) 1,000 mls @ 0 mls/hr IV .Q0M PRN; Protocol; Per Protocol PRN Reason: Hypoglycemia Protocol Pneumococcal Polyvalent Vaccine (Pneumovax 23 Vaccine) 0.5 ml IM .ONCE ONE Stop: 02/26/18 11:01 - Labs Labs: 02/24/18 07:16 PT 10.2 SECONDS (9.7-12.2) 02/23/18 16:33 INR 0.9 02/23/18 16:33 APTT 31 SECONDS (21-34) 02/23/18 16:33
[2018-02-24 08:54] LABS: ALB/GLOB RATIO 0.7 (1.0-2.1); ALBUMIN 2.4 g/dL (3.5-5.0); ALT/SGPT 27 U/L (9-52); AST/SGOT 54 U/L (14-36); BLOOD UREA NITROGEN 25 mg/dL (7-17); CALCIUM 7.9 mg/dl (8.6-10.4); GFR AFRICAN-AMERICAN > 60; GFR NON-AFRICAN AMERICAN > 60; HDL CHOLESTEROL 24 mg/dL (30-70)
[2018-02-24 09:00] LABS: LDL CHOLESTEROL 92 mg/dL (0-129)
[2018-02-24] MEDS: Pantoprazole 40 mg EC Tab PO SCH (10:54)
[2018-02-24] MEDS: Azithromycin 500 MG in Sodium Chloride 0.9% 250 ML IVPB SCH (11:00)
[2018-02-24] MEDS: Oxycodone/Acetaminophen 5/325 mg Tab PO PRN ×2 (11:30→21:12)
[2018-02-24] MEDS: (Novolin R) Insulin Human Regular 100 units/ml vial SC SCH ×3 (11:40→23:04)
--- NOTE | 2018-02-24 13:23 | CT ---
PROCEDURE: CT HEAD WITHOUT CONTRAST. HISTORY: recurrent falls COMPARISON: None available. TECHNIQUE: Axial computed tomography images were obtained through the head/brain without intravenous contrast. Radiation dose: Total exam DLP = 1026 mGy-cm. This CT exam was performed using one or more of the following dose reduction techniques: Automated exposure control, adjustment of the mA and/or kV according to patient size, and/or use of iterative reconstruction technique. FINDINGS: HEMORRHAGE: No intracranial hemorrhage. BRAIN: No mass effect or edema. No atrophy or chronic microvascular ischemic changes. Punctate left basal ganglia calcification. Mild chronic microvascular ischemic changes. VENTRICLES: Unremarkable. No hydrocephalus. CALVARIUM: Unremarkable. PARANASAL SINUSES: Unremarkable as visualized. No significant inflammatory changes. MASTOID AIR CELLS: Unremarkable as visualized. No inflammatory changes. OTHER FINDINGS: None. IMPRESSION: No acute intracranial abnormality. Mild chronic microvascular ischemic changes. Punctate left basal ganglia calcification. If symptoms persists, consider correlation with MRI.
--- NOTE | 2018-02-24 23:46 | HP ---
CHIEF COMPLAINT: Right lower extremity pain and bilateral lower extremity edema and shortness of breath on exertion, progressively getting worse over the past 2 weeks. HISTORY OF PRESENT ILLNESS: Ms. Schroeder is a 48-year-old female with past medical history of asthma, diabetes mellitus, fibromyalgia, restless legs syndrome, herniated disk in the neck, carpal tunnel syndrome, history of hepatitis C positive, recently admitted to the hospital in the month of November for pancreatitis and biliary ductal obstruction. Had abnormal liver function tests during the previous hospital visit. The patient was also found to be having left possible dermoid cyst for which she was recommended to follow up with her SENIOR CARE ASSISTANT as outpatient. She claims that she also underwent a 10-pound right ovarian mass removed about 20 years ago at [facility]. She underwent perineal abscess drainage about 2 years ago at [facility]. She has been following up with Dr. Arnold as primary care physician. She was evaluated in [facility] for fall, and she signed out against medical advice and returning to the hospital for worsening right foot pain and shortness of breath on exertion, bilateral leg edema, progressively getting worse over the past 10 days. The patient claims that she has been having recurrent falls in the past year to year and a half, had 5 to 6 falls, one time she fell outside. She claims that before having a fall, she feels dizzy and not feeling well without her knowledge, she would be on the ground, is aware of all the surroundings and cannot recall any loss of consciousness or any palpitation or any other chest pain prior to these episodes. She fell in her house on while walking in her house on an even surface without her knowledge, and she was evaluated in the emergency room, and she signed out against medical advice. She denies any other neurologic symptoms associated with this fall, and she is not able to correlate her symptoms with any of the diet or cannot describe the time period when it could happen. When I examined, she denied any headache or dizziness, denied any chest pain, shortness of breath at rest but claims that she is not able to walk up the stairs without getting short of breath. She denies any fever but complaining of productive cough for the past 1 week to 10 days. The sputum is yellowish in color. Denies anyone at home sick. Denies any other with wheezing, sore throat or runny nose. Denies any nausea, vomiting, abdominal pain, diarrhea, or constipation. Denies any urinary complaints. Claims that she has peripheral neuropathy for which she has been taking Neurontin, and her medication was lowered recently. PAST MEDICAL HISTORY: As described, diabetes mellitus, asthma, hepatitis C positive, gastritis, history of pancreatitis, fibromyalgia, restless legs syndrome, herniated disk in the neck. PAST SURGICAL HISTORY: Underwent right ovary cyst removed about 20 years ago which weighed about 10 pounds as per the patient, perineal abscess drainage two years ago, underwent liver biopsy in December consistent with acute biliary obstruction, underwent cholecystectomy, and she was found to be having left ovarian mass, possible dermoid cyst. FAMILY HISTORY: Coronary artery disease, diabetes mellitus, and hypertension in both mother and father. History of breast cancer in the family. There are cancers in the family, could not recall what type of cancers in the family. PERSONAL HISTORY: She is single, having 4 children, currently unemployed, used to work in [employer]. SOCIAL HISTORY: She quit heavy smoking about a year ago, used to smoke one pack per day, but lately she has been smoking 1-2 cigarettes per day. Denies any other drug abuse or alcohol use. ALLERGIES: SHE IS ALLERGIC TO HYDROMORPHONE AND LIDOCAINE. MEDICATIONS: Include Protonix 40 mg daily, metformin 1000 mg p.o. b.i.d., insulin 34 units at bedtime, Neurontin 1600 mg p.o. b.i.d. REVIEW OF SYSTEMS: As described in history of present illness. All other systems reviewed and were found to be negative. PHYSICAL EXAMINATION: GENERAL: Middle-aged female, lying in bed, in no acute distress. VITAL SIGNS: Blood pressure 140/71, pulse 70, respirations 20, temperature 97.7 degrees Fahrenheit, O2 saturation 96% on room air. HEENT: Pupils equal, round, reacting to light and accommodation. Extraocular muscles intact. No icterus, no pallor. No oral thrush, no pharyngeal congestion. NECK: Supple. No JVD. LUNGS: Bilateral vesicular breath sounds. No wheezing. No rhonchi. CVS: S1 and S2 present, regular. ABDOMEN: Soft, nontender. Bowel sounds present. No guarding, no rigidity, no rebound tenderness noted. TELEHEALTH DIRECTOR: Alert, awake, oriented x3. No focal deficits noted. EXTREMITIES: Bilateral 3+ pitting edema. Right foot with a foot splint in place. LABORATORY DATA: Labs done from emergency room: WBC 9.6, hemoglobin 12.2, hematocrit 35.7, platelets 198. PT 10.2, INR 0.9, PTT 31. D-dimer 568. Sodium 136, potassium 5.6, chloride 107, bicarb 23, BUN 25, creatinine 0.7, glucose 182, calcium 7.9. AST 61, ALT 36, alkaline phosphatase 350. Cardiac enzymes x1 negative. ProBNP 393. Total protein 6.5, albumin 2.6. Alcohol less than 10. Chest CT done from emergency room consistent with large right and small left pleural effusions, right lower lobe air space disease and pneumonia with less extensive airspace disease in the left lower lobe and middle lobe infiltrate and/or atelectasis, compressive atelectasis bilaterally, ascites, body wall edema, shotty mediastinal adenopathy. Lower extremity CT consistent with a fracture of the medial first cuneiform and bases of the first and second metatarsals, soft tissue swelling, vascular calcification, old healed ankle fractures. ASSESSMENT AND PLAN: A middle-aged female with history of diabetes mellitus, asthma, fibromyalgia, history of hepatitis C positive, recent admission for pancreatitis, fibromyalgia, restless legs syndrome, herniated disk, carpal tunnel syndrome. Admitted to the hospital for right foot metatarsal and cuneiform fractures, and also patient is found to be having lower extremity edema with right lower lobe infiltrate and bilateral pleural effusions. The patient is being admitted for further evaluation and management. 1. Right foot fracture with a splint in place. 2. Recurrent falls preceded by symptoms of dizziness and not feeling well, rule out secondary to multiple hypoglycemic episodes versus rule out cardiac arrhythmias, rule out absent seizures, rule out other neurologic causes. 3. Right lower lobe infiltrate with bilateral pleural effusions, rule out infectious etiology with parapneumonic effusion versus cardiac causes. 4. Anasarca with bilateral lower extremity edema and bilateral pleural effusions, probably secondary to uncontrolled congestive heart failure. 5. History of diabetes mellitus. 6. Hyperkalemia. 7. Elevated D-dimer. CT chest negative for any pulmonary embolism. PLAN: The patient is being admitted to telemetry. We will do serial cardiac enzymes. We will do serial EKGs. Check echocardiogram for LV function. We will obtain cardiology evaluation. Start Lasix 40 mg IV daily. Low-salt diet. Fluid restrictions. The patient does not seem septic but will cover with empiric antibiotics with Rocephin and Zithromax. We will obtain pulmonary evaluation. We will discuss with Pulmonary regarding possible diagnostic thoracentesis. We will do tumor markers. Podiatry consult is appreciated for right foot fracture with a splint in place. We will continue with pain medication. The patient received Kayexalate for hyperkalemia. Follow up electrolytes closely. We will do a CT scan of the head, carotid Doppler, and EEG to rule out any neurologic causes for her recurrent falls. We will obtain SENIOR CARE ASSISTANT evaluation for her left ovarian mass. We will continue with her home medications. We will request physical therapy and occupational therapy for the right foot. We will add further recommendation as her clinical course progresses. Cesar Lowery MD
--- NOTE | 2018-02-25 08:15 | CP.PCM.CON ---
History of Present Illness - History of Present Illness History of Present Illness: Reason For Consultation: CHF 48-year-old female, returns to the emergency department today after leaving AMA yesterday, with complaints of right foot pain, shortness of breath and leg edema. Patient had been admitted for CHF and right foot sprain, and the overnight radiology read the foot XR as (+) acute non displaced fractures in the navicular and medial cuneiform. Chest X-Ray was re-read to show questionable CHF and consolidation in right lower lobe. Patient states she went home because she was upset. No new complaints at this time. (Damon Mai) Past Medical History Reviewed: Historical Data, Nursing Documentation, Vital Signs - Medical History PMH: Asthma, Diabetes, Fractures (RIGHT FOOT), Gall Bladder Disease, Hepatitis ( C), Pancreatitis Surgical History: Cholecystectomy, Endoscopy Family History: States: No Known Family Hx - Social History Hx Tobacco Use: Yes (light smoker) Hx Alcohol Use: No Hx Substance Use: No - Immunization History Hx Tetanus Toxoid Vaccination: No Hx Influenza Vaccination: Yes Hx Pneumococcal Vaccination: Yes - [facility] Procedures (12/19/17) DILATION OF COMMON BILE DUCT, ENDO (12/19/17) EXTIRPATION OF MATTER FROM COMMON BILE DUCT, ENDO (12/19/17) INCIS PERIANAL ABSCESS (04/12/15) INSPECTION OF UPPER INTESTINAL TRACT, ENDO (12/19/17) VACCINATION NEC (04/12/15) Review Of Systems Except As Marked, All Systems Reviewed And Found Negative. Constitutional: Negative for: Fever, Chills Cardiovascular: Positive for: Edema Respiratory: Positive for: Shortness of Breath Gastrointestinal: Negative for: Vomiting Musculoskeletal: Positive for: Foot Pain <Damon Mai - Last Filed: 02/23/18 21:52> Physical Exam - Physical Exam Appears: Non-toxic, No Acute Distress Skin: Normal Color, Warm, Dry, No Rash Head: Atraumatic, Normacephalic Eye(s): bilateral: Normal Inspection, PERRL Nose: Normal Oral Mucosa: Moist Lips: Normal Appearing Neck: Normal ROM Chest: Symmetrical Cardiovascular: Rhythm Regular, No Murmur Respiratory: No Accessory Muscle Use, Rales (Mild, no egophny) Gastrointestinal/Abdominal: Soft, No Tenderness Extremity: Normal ROM, Pedal Edema (3/4 pitting edema to the dorsum of right foot with echymosis), No Deformity, No Swelling Neurological/Psych: Oriented x3, Normal Speech Past Patient History - Past Medical History & Family History Past Medical History?: Yes - Past Social History Smoking Status: Light Smoker < 10 Cigarettes Daily - CARDIAC Hx Congestive Heart Failure: Yes - PULMONARY Hx Asthma: Yes - NEUROLOGICAL Hx Neurological Disorder: Yes (NEURPOATHTY) Hx Dizziness: Yes - HEENT Hx HEENT Problems: Yes (HX RETINA BLEEDING) Other/Comment: sclera both eye slightly jaundice - RENAL Hx Chronic Kidney Disease: No - ENDOCRINE/METABOLIC Hx Endocrine Disorders: Yes Hx Diabetes Mellitus Type 2: Yes - HEMATOLOGICAL/ONCOLOGICAL Hx Hepatitis C: Yes - INTEGUMENTARY Hx Dermatological Problems: Yes (SLIGHT JAUNDICE) Other/Comment: sclera both eye slightly jaundice - MUSCULOSKELETAL/RHEUMATOLOGICAL Hx Falls: Yes - GASTROINTESTINAL Hx Gall Bladder Disease: Yes Hx Pancreatitis: Yes - GENITOURINARY/GYNECOLOGICAL Hx Genitourinary Disorders: No Other/Comment: fibroids - PSYCHIATRIC Hx Substance Use: No - SURGICAL HISTORY Hx Cholecystectomy: Yes - ANESTHESIA Hx Anesthesia: Yes Hx Anesthesia Reactions: No Hx Malignant Hyperthermia: No Has any member of the family had a problem w/ anesthesia?: No Meds Allergies/Adverse Reactions: Allergies Allergy/AdvReac Type Severity Reaction Status Date / Time hydromorphone [From Dilaudid] Allergy SHORTNESS Verified 02/23/18 14:49 OF BREATH lidocaine Allergy Verified 02/23/18 14:49 - Medications Medications: Current Medications Dextrose (Dextrose 50% Inj) 0 ml IV STAT PRN; Protocol PRN Reason: Hypoglycemia Protocol Dextrose (Glutose 15) 0 gm PO ONCE PRN; Protocol PRN Reason: Hypoglycemia Protocol Furosemide (Lasix) 40 mg IVP DAILY [facility] Last Admin: 02/24/18 10:55 Dose: 40 mg Gabapentin (Neurontin) 1,600 mg PO BID [facility] Last Admin: 02/24/18 17:15 Dose: 1,600 mg Glucagon (Glucagen Diagnostic Kit) 0 mg IM STAT PRN; Protocol PRN Reason: Hypoglycemia Protocol Azithromycin 500 mg/ Sodium (Chloride) 250 mls @ 250 mls/hr IVPB DAILY [facility] PRN Reason: Protocol Last Admin: 02/24/18 11:00 Dose: 250 mls/hr Ceftriaxone Sodium 1 gm/ (Sodium Chloride) 100 mls @ 100 mls/hr IVPB DAILY [facility] PRN Reason: Protocol Last Admin: 02/24/18 10:00 Dose: 100 mls/hr Dextrose (Dextrose 5% In Water 1000 Ml) 1,000 mls @ 0 mls/hr IV .Q0M PRN; Protocol; Per Protocol PRN Reason: Hypoglycemia Protocol Insulin Human Regular (Novolin R) 0 unit SC ACHS [facility] PRN Reason: Protocol Last Admin: 02/24/18 23:04 Dose: Not Given Metformin HCl (Glucophage) 1,000 mg PO BIDCC [facility] Last Admin: 02/24/18 17:11 Dose: Not Given Metoprolol Tartrate (Lopressor) 25 mg PO BIDBS [facility] Last Admin: 02/24/18 17:14 Dose: 25 mg Oxycodone/Acetaminophen (Percocet 5/325 Mg Tab) 1 tab PO Q6H PRN PRN Reason: Pain, severe (8-10) Stop: 02/27/18 09:25 Last Admin: 02/24/18 21:12 Dose: 1 tab Pantoprazole Sodium (Protonix Ec Tab) 40 mg PO DAILY [facility] Last Admin: 02/24/18 10:54 Dose: 40 mg Pneumococcal Polyvalent Vaccine (Pneumovax 23 Vaccine) 0.5 ml IM .ONCE ONE Stop: 02/26/18 11:01 Results - Vital Signs Recent Vital Signs: Last Vital Signs Temp 97.8 F 02/24/18 23:45 Pulse 76 02/25/18 07:40 Resp 20 02/24/18 23:45 BP 140/81 02/24/18 23:45 Pulse Ox 96 02/24/18 23:45 - Labs Result Diagrams: 02/24/18 07:16 02/24/18 07:16 Labs: Laboratory Results - last 24 hr 02/24/18 02/24/18 02/24/18 07:16 07:16 07:28 Sodium 141 Potassium 4.4 Chloride 108 H Carbon Dioxide 28 Anion Gap 10 BUN 25 H Creatinine 0.9 Est GFR ( Amer) > 60 Est GFR (Non-Af Amer) > 60 POC Glucose (mg/dL) 134 H Random Glucose 48 L Calcium 7.9 L Total Bilirubin 0.2 AST 54 H ALT 27 Alkaline Phosphatase 298 H Total Protein 5.9 L Albumin 2.4 L Globulin 3.5 Albumin/Globulin Ratio 0.7 L Triglycerides 181 H Cholesterol 172 LDL Cholesterol Direct 92 HDL Cholesterol 24 L Alpha Fetoprotein 1.8 Carcinoembryonic Ag 13.3 H CA 19-9 Antigen 369 H D CA 125 Antigen 117 H D TSH 3rd Generation 3.10 Ur L.pneumophila Ag Mycoplasma pneumon IgM 02/24/18 02/24/18 02/24/18 11:17 15:00 15:53 Sodium Potassium Chloride Carbon Dioxide Anion Gap BUN Creatinine Est GFR ( Amer) Est GFR (Non-Af Amer) POC Glucose (mg/dL) 146 H Random Glucose Calcium Total Bilirubin AST ALT Alkaline Phosphatase Total Protein Albumin Globulin Albumin/Globulin Ratio Triglycerides Cholesterol LDL Cholesterol Direct HDL Cholesterol Alpha Fetoprotein Carcinoembryonic Ag CA 19-9 Antigen CA 125 Antigen TSH 3rd Generation Ur L.pneumophila Ag Negative Mycoplasma pneumon IgM Negative 02/24/18 02/24/18 16:06 21:07 Sodium Potassium Chloride Carbon Dioxide Anion Gap BUN Creatinine Est GFR ( Amer) Est GFR (Non-Af Amer) POC Glucose (mg/dL) 114 H 121 H Random Glucose Calcium Total Bilirubin AST ALT Alkaline Phosphatase Total Protein Albumin Globulin Albumin/Globulin Ratio Triglycerides Cholesterol LDL Cholesterol Direct HDL Cholesterol Alpha Fetoprotein Carcinoembryonic Ag CA 19-9 Antigen CA 125 Antigen TSH 3rd Generation Ur L.pneumophila Ag Mycoplasma pneumon IgM Assessment & Plan - Assessment and Plan (Free Text) Assessment: 48 F admitted for right foot pain and swelling B/L Small pleural effusions Given Normal ProBNP levels unlikely CHF But will check ECHO Continue all meds Will follow
[2018-02-25] MEDS: (Novolin R) Insulin Human Regular 100 units/ml vial SC SCH ×4 (08:40→21:52)
[2018-02-25] MEDS: Pantoprazole 40 mg EC Tab PO SCH (09:34)
[2018-02-25] MEDS: Azithromycin 500 MG in Sodium Chloride 0.9% 250 ML IVPB SCH (09:47)
--- NOTE | 2018-02-25 10:17 | CP.PCM.PN ---
Subjective - Date & Time of Evaluation Date of Evaluation: 02/25/18 Time of Evaluation: 10:17 - Subjective Subjective: Podiatry - Dr. Arnold 48F seen and evaluated at bedside for fractures to right medial cuneiform, 1st and second met bases. Patient resting comfortably, NAD. No acute events overnight. Patient reports pain to RLE is well-controlled. Admits to walking OOB to bathroom on posterior splint without assistance. Denies N/V/F/D/C/SOB. Objective - Vital Signs/Intake and Output Vital Signs (last 24 hours): Temp Pulse Resp BP Pulse Ox 98.1 F 76 20 135/80 96 02/25/18 07:10 02/25/18 07:40 02/25/18 07:10 02/25/18 08:41 02/25/18 07:10 - Medications Medications: Current Medications Dextrose (Dextrose 50% Inj) 0 ml IV STAT PRN; Protocol PRN Reason: Hypoglycemia Protocol Dextrose (Glutose 15) 0 gm PO ONCE PRN; Protocol PRN Reason: Hypoglycemia Protocol Furosemide (Lasix) 40 mg IVP DAILY [facility] Last Admin: 02/24/18 10:55 Dose: 40 mg Gabapentin (Neurontin) 1,600 mg PO BID [facility] Last Admin: 02/25/18 09:37 Dose: 1,600 mg Glucagon (Glucagen Diagnostic Kit) 0 mg IM STAT PRN; Protocol PRN Reason: Hypoglycemia Protocol Azithromycin 500 mg/ Sodium (Chloride) 250 mls @ 250 mls/hr IVPB DAILY [facility] PRN Reason: Protocol Last Admin: 02/25/18 09:47 Dose: 250 mls/hr Ceftriaxone Sodium 1 gm/ (Sodium Chloride) 100 mls @ 100 mls/hr IVPB DAILY [facility] PRN Reason: Protocol Last Admin: 02/25/18 09:45 Dose: 100 mls/hr Dextrose (Dextrose 5% In Water 1000 Ml) 1,000 mls @ 0 mls/hr IV .Q0M PRN; Protocol; Per Protocol PRN Reason: Hypoglycemia Protocol Insulin Human Regular (Novolin R) 0 unit SC ACHS [facility] PRN Reason: Protocol Last Admin: 02/25/18 08:40 Dose: Not Given Metformin [facility] (Glucophage) [facility] Last Admin: 02/25/18 09:34 Dose: 1,000 mg Metoprolol Tartrate (Lopressor) 25 mg PO BIDBS [facility] Last Admin: 02/25/18 08:41 Dose: 25 mg Oxycodone/Acetaminophen (Percocet 5/325 Mg Tab) 1 tab PO Q6H PRN PRN Reason: Pain, severe (8-10) Stop: 02/27/18 09:25 Last Admin: 02/24/18 21:12 Dose: 1 tab Pantoprazole Sodium (Protonix Ec Tab) 40 mg PO DAILY [facility] Last Admin: 02/25/18 09:34 Dose: 40 mg Pneumococcal Polyvalent Vaccine (Pneumovax 23 Vaccine) 0.5 ml IM .ONCE ONE Stop: 02/26/18 11:01 - Labs Labs: 02/24/18 07:16 02/24/18 07:16 PT 10.2 SECONDS (9.7-12.2) 02/23/18 16:33 INR 0.9 02/23/18 16:33 APTT 31 SECONDS (21-34) 02/23/18 16:33 - Constitutional Appears: Well, Non-toxic, No Acute Distress - Extremities Exam Additional comments: Posterior splint to RLE clean/dry/intact NVSI to digits x5 No pain upon calf squeeze - Neurological Exam Neurological Exam: Alert, Awake, Oriented x3 - Psychiatric Exam Psychiatric exam: Normal Affect, Normal Mood Assessment and Plan - Assessment and Plan (Free Text) Assessment: 48 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 Plan: Patient seen and evaluated Discussed with attending, Dr. Arnold X-rays 02/22: cuneiform fracture noted. CT scan: results show 1st and 2nd metatarsal base fx w/ medial cuneiform fracture, non-displaced. No navicular fracture WB status: NWB RLE in posterior splint with assistance -f/u physical therapy Pt to be transitioned to fiberglass cast tomorrow, Monday, prior to discharge, to allow immediate post-traumatic edema to ebb. Pain regimen per medicine Podiatry will follow Upon discharge pt to follow up with outpatient senior net engineer Dr. Arnold.
--- NOTE | 2018-02-25 12:17 | CP.PCM.CON ---
History of Present Illness - History of Present Illness History of Present Illness: Pulmonary Evalution, Covering Dr. Keita The patient was Seen and examined by me at the bedside, Events reviewed 48 year old former smoker Female with PMHx of moderate persistant Asthma, DM2, fibromyalgia, RLS, chronic neuropathic pain, Gall Bladder Disease, Hepatitis C S /P Liver biopsy 01/10/2018 and Fractures (RIGHT FOOT) Who returns to the emergency department 02/23 after leaving AMA 02/22, with complaints of right foot pain, shortness of breath and leg edema. P atient had been admitted for CHF and right foot sprain, and the overnight radiology read the foot XR as (+) acute non displaced fractures in the navicular and medial cuneiform. Chest X-Ray was re-read to show questionable CHF and consolidation in right lower lobe. Pulmonary consulted for evauation of dyspnea, pleural effusion and possible pneumonia He was started on IV Lasix, Ceftriaxone and Albuterol/Ipratropium (Duoneb) INH RQ6 Patient lying in bed comfortably, she is feeling better today and no apparent distress. Patient afebrile, saturating well at 96-100% on 2L NC Patient Denies shortness of breath at rest but dyspnic with minimal exersion No Fever/chills/night sweats, chest pain, Cough, hempotysis, or Palpitations This morning labs revealed No Leucocytosis, Stable renal function BUN/Cr 25/0.9 SocialHx: Former tobacco use, she quit about a year ago, but admit that she back smoking about couple of cig a day. Report Date : 02/23/2018 20:28:00 CT Chest With Intravenous Contrast FINDINGS: Lungs and pleural spaces: Trachea and main bronchi are patent.There is no pneumothorax. There is a moderately large right pleural effusion. There is a small left effusion. There is airspace disease greatest in the right lower lobe. There is less extensive airspace disease in the right middle lobe and left lower lobes. There is compressive atelectasis in the upper lobes bilaterally. There are atelectatic changes in both lower lobes. Heart and vasculature: Heart size is normal.There is fluid in pericardial recesses.Aorta and main pulmonary artery are normal in caliber. Mediastinum: There is shotty mediastinal nodes. There are no pathologically enlarged hilar nodes. Esophagus is unremarkable. Thyroid: Thyroid is only partially imaged. Bones/joints: There are degenerative changes in the osseus structures. IMPRESSION: Large right and small left pleural effusions; right lower lobe airspace disease/pneumonia with less extensive airspace disease in the left lower lobe and middle lobes, infiltrate and/or atelectasis; compressive atelectasis bilaterally; ascites; body wall edema; shotty mediastinal adenopathy Review of Systems - Constitutional Constitutional: Fatigue, Fever, Frequent Falls. absent: Chills, Daytime Sleepiness, Excessive Sweating, Headache, Increased Appetite, Lethargy, Malaise , Night Sweats - Cardiovascular Cardiovascular: absent: Chest Pain, Chest Pain at Rest, Chest Pain with Activity , Claudication, Diaphoresis - Respiratory Respiratory: Cough, Dyspnea, Dyspnea on Exertion. absent: Hemoptysis, Wheezing , Snoring, Stridor - Gastrointestinal Gastrointestinal: Abdominal Pain. absent: Coffee Ground Emesis, Heartburn, Nausea, Vomiting Past Patient History - Past Medical History & Family History Past Medical History?: Yes - Past Social History Smoking Status: Light Smoker < 10 Cigarettes Daily - CARDIAC Hx Congestive Heart Failure: Yes - PULMONARY Hx Asthma: Yes - NEUROLOGICAL Hx Neurological Disorder: Yes (NEURPOATHTY) Hx Dizziness: Yes - HEENT Hx HEENT Problems: Yes (HX RETINA BLEEDING) Other/Comment: sclera both eye slightly jaundice - RENAL Hx Chronic Kidney Disease: No - ENDOCRINE/METABOLIC Hx Endocrine Disorders: Yes Hx Diabetes Mellitus Type 2: Yes - HEMATOLOGICAL/ONCOLOGICAL Hx Hepatitis C: Yes - INTEGUMENTARY Hx Dermatological Problems: Yes (SLIGHT JAUNDICE) Other/Comment: sclera both eye slightly jaundice - MUSCULOSKELETAL/RHEUMATOLOGICAL Hx Falls: Yes - GASTROINTESTINAL Hx Gall Bladder Disease: Yes Hx Pancreatitis: Yes - GENITOURINARY/GYNECOLOGICAL Hx Genitourinary Disorders: No Other/Comment: fibroids - PSYCHIATRIC Hx Substance Use: No - SURGICAL HISTORY Hx Cholecystectomy: Yes - ANESTHESIA Hx Anesthesia: Yes Hx Anesthesia Reactions: No Hx Malignant Hyperthermia: No Has any member of the family had a problem w/ anesthesia?: No Meds Allergies/Adverse Reactions: Allergies Allergy/AdvReac Type Severity Reaction Status Date / Time hydromorphone [From Dilaudid] Allergy SHORTNESS Verified 02/23/18 14:49 OF BREATH lidocaine Allergy Verified 02/23/18 14:49 - Medications Medications: Current Medications Dextrose (Dextrose 50% Inj) 0 ml IV STAT PRN; Protocol PRN Reason: Hypoglycemia Protocol Dextrose (Glutose 15) 0 gm PO ONCE PRN; Protocol PRN Reason: Hypoglycemia Protocol Furosemide (Lasix) 40 mg IVP DAILY [facility] Last Admin: 02/24/18 10:55 Dose: 40 mg Gabapentin (Neurontin) 1,600 mg PO BID [facility] Last Admin: 02/25/18 09:37 Dose: 1,600 mg Glucagon (Glucagen Diagnostic Kit) 0 mg IM STAT PRN; Protocol PRN Reason: Hypoglycemia Protocol Azithromycin 500 mg/ Sodium (Chloride) 250 mls @ 250 mls/hr IVPB DAILY [facility] PRN Reason: Protocol Last Admin: 02/25/18 09:47 Dose: 250 mls/hr Ceftriaxone Sodium 1 gm/ (Sodium Chloride) 100 mls @ 100 mls/hr IVPB DAILY [facility] PRN Reason: Protocol Last Admin: 02/25/18 09:45 Dose: 100 mls/hr Dextrose (Dextrose 5% In Water 1000 Ml) 1,000 mls @ 0 mls/hr IV .Q0M PRN; Protocol; Per Protocol PRN Reason: Hypoglycemia Protocol Insulin Human Regular (Novolin R) 0 unit SC ACHS [facility] PRN Reason: Protocol Last Admin: 02/25/18 08:40 Dose: Not Given Metformin HCl (Glucophage) 1,000 mg PO BIDCC [facility] Last Admin: 02/25/18 09:34 Dose: 1,000 mg Metoprolol Tartrate (Lopressor) 25 mg PO BIDBS [facility] Last Admin: 02/25/18 08:41 Dose: 25 mg Oxycodone/Acetaminophen (Percocet 5/325 Mg Tab) 1 tab PO Q6H PRN PRN Reason: Pain, severe (8-10) Stop: 02/27/18 09:25 Last Admin: 02/24/18 21:12 Dose: 1 tab Pantoprazole Sodium (Protonix Ec Tab) 40 mg PO DAILY [facility] Last Admin: 02/25/18 09:34 Dose: 40 mg Pneumococcal Polyvalent Vaccine (Pneumovax 23 Vaccine) 0.5 ml IM .ONCE ONE Stop: 02/26/18 11:01 Results - Vital Signs Recent Vital Signs: Last Vital Signs Temp 98.1 F 02/25/18 07:10 Pulse 76 02/25/18 07:40 Resp 20 02/25/18 07:10 BP 135/80 02/25/18 08:41 Pulse Ox 96 02/25/18 07:10 - Labs Result Diagrams: 02/26/18 07:16 02/26/18 07:16 Labs: Laboratory Results - last 24 hr 02/24/18 02/24/18 02/24/18 07:16 11:17 15:00 POC Glucose (mg/dL) 146 H Hemoglobin A1c 8.7 H D Ur L.pneumophila Ag Mycoplasma pneumon IgM Negative 02/24/18 02/24/18 02/24/18 15:53 16:06 21:07 POC Glucose (mg/dL) 114 H 121 H Hemoglobin A1c Ur L.pneumophila Ag Negative Mycoplasma pneumon IgM 02/25/18 06:27 POC Glucose (mg/dL) 120 H Hemoglobin A1c Ur L.pneumophila Ag Mycoplasma pneumon IgM Assessment & Plan (1) Pleural effusion, right Status: Acute (2) CAP (community acquired pneumonia) Status: Acute (3) Sepsis Status: Acute (4) CHF (congestive heart failure) Status: Acute (5) Asthma Status: Chronic - Assessment and Plan (Free Text) Assessment: Respiratory insuffectioncy from CAP and B/L pleural effusions R>L Improved Respiratory status Continue Albuterol/Ipratropium (Duoneb) INH RQ6 [facility] Strict I&O ECHO Continue Ceftriaxone Sodium 1 gm IVPB DAILY Continue Azithromycin 500 mg IVPB DAILY Follow up cultures Check urine legionella and pneumococcus/strep antigen Check Procalcitonin level sputum culture to rule out resistant pathogens. Will discus with IR, consider performing diagnostic/therapeutic tap I reviewed the rationale, risks, treatment and alternatives with the patient. The patient was given the opportunity to ask many questions which were answered to his satisfaction. He agrees with our recommendations as outlined above.
--- NOTE | 2018-02-25 12:43 | CP.PCM.PN ---
Subjective - Date & Time of Evaluation Date of Evaluation: 02/25/18 Time of Evaluation: 12:45 - Subjective Subjective: Progress note dictated #[id number] Objective - Vital Signs/Intake and Output Vital Signs (last 24 hours): Temp Pulse Resp BP Pulse Ox 98.1 F 76 20 135/80 96 02/25/18 07:10 02/25/18 07:40 02/25/18 07:10 02/25/18 08:41 02/25/18 07:10 - Medications Medications: Current Medications Dextrose (Dextrose 50% Inj) 0 ml IV STAT PRN; Protocol PRN Reason: Hypoglycemia Protocol Dextrose (Glutose 15) 0 gm PO ONCE PRN; Protocol PRN Reason: Hypoglycemia Protocol Furosemide (Lasix) 40 mg IVP DAILY [facility] Last Admin: 02/24/18 10:55 Dose: 40 mg Gabapentin (Neurontin) 1,600 mg PO BID [facility] Last Admin: 02/25/18 09:37 Dose: 1,600 mg Glucagon (Glucagen Diagnostic Kit) 0 mg IM STAT PRN; Protocol PRN Reason: Hypoglycemia Protocol Azithromycin 500 mg/ Sodium (Chloride) 250 mls @ 250 mls/hr IVPB DAILY [facility] PRN Reason: Protocol Last Admin: 02/25/18 09:47 Dose: 250 mls/hr Ceftriaxone Sodium 1 gm/ (Sodium Chloride) 100 mls @ 100 mls/hr IVPB DAILY [facility] PRN Reason: Protocol Last Admin: 02/25/18 09:45 Dose: 100 mls/hr Dextrose (Dextrose 5% In Water 1000 Ml) 1,000 mls @ 0 mls/hr IV .Q0M PRN; Protocol; Per Protocol PRN Reason: Hypoglycemia Protocol Insulin Human Regular (Novolin R) 0 unit SC ACHS [facility] PRN Reason: Protocol Last Admin: 02/25/18 08:40 Dose: Not Given Metformin HCl (Glucophage) 1,000 mg PO BIDCC [facility] Last Admin: 02/25/18 09:34 Dose: 1,000 mg Metoprolol Tartrate (Lopressor) 25 mg PO BIDBS [facility] Last Admin: 02/25/18 08:41 Dose: 25 mg Oxycodone/Acetaminophen (Percocet 5/325 Mg Tab) 1 tab PO Q6H PRN PRN Reason: Pain, severe (8-10) Stop: 02/27/18 09:25 Last Admin: 02/24/18 21:12 Dose: 1 tab Pantoprazole Sodium (Protonix Ec Tab) 40 mg PO DAILY [facility] Last Admin: 02/25/18 09:34 Dose: 40 mg Pneumococcal Polyvalent Vaccine (Pneumovax 23 Vaccine) 0.5 ml IM .ONCE ONE Stop: 02/26/18 11:01 - Labs Labs: 02/24/18 07:16 02/24/18 07:16 PT 10.2 SECONDS (9.7-12.2) 02/23/18 16:33 INR 0.9 02/23/18 16:33 APTT 31 SECONDS (21-34) 02/23/18 16:33
[2018-02-25] MEDS ORDERED: Bismuth Subsalicylate 262 mg/15 ml Sus (240 ml) PO ONE (16:30)
[2018-02-25 16:42] LABS: ANTI SREPTOLYSIN O NEGATIVE (NEGATIVE)
--- NOTE | 2018-02-25 17:16 | PN ---
DATE: 02/25/2018 SUBJECTIVE: The patient is seen and examined at bedside. The patient is feeling slightly better than yesterday, but still complaining of right foot pain, worse than yesterday. Denies any headache, dizziness. Her shortness of breath remains the same. Denies any nausea, vomiting, abdominal pain, diarrhea, or constipation. PHYSICAL EXAMINATION: GENERAL: Middle aged female, lying in bed, in no acute distress. VITAL SIGNS: Blood pressure 130/81,pulse 92, respirations 20, temperature 98.1 degrees Fahrenheit, O2 sat is 96% on room air. HEENT: Pupils are equal, round, and reacting to light and accommodation. Extraocular muscles are intact. No icterus. No pallor. No oral thrush. No oropharyngeal congestion. NECK: Supple. No JVD. LUNGS: Bilateral vesicular breath sounds. No wheezing. Bilateral basal crackles heard at lower third. CVS: S1 and S2 present, regular. ABDOMEN: Soft. Bowel sounds are present. No guarding. No rigidity. No rebound tenderness noted. INSPECTOR BICYCLE: Alert, awake, and oriented x3. No focal deficits noted. EXTREMITIES: 3+ edema. Right foot with splint in place. MEDICATIONS: Include Zithromax 500 mg daily, Rocephin 1 g daily, Lasix 40 mg daily, Neurontin 1600 p.o. b.i.d., Glucophage 1000 mg p.o. b.i.d., Lopressor 25 mg p.o. b.i.d., Percocet 1 tab p.o. every 6 hours p.r.n., Protonix 40 mg p.o. daily. LABORATORY DATA: Labs done from this morning: Glucose is 114, 121, 120, 221. Mycoplasma negative. Legionella negative. Carotid Doppler, pending result. Echocardiogram not done yet. Blood culture and urine culture ordered, so far negative. Urine ordered, not done yet. ASSESSMENT AND PLAN: Middle-aged female with past medical history of diabetes mellitus for the past 18 years, history of asthma, fibromyalgia, restless leg syndrome, carpal tunnel syndrome, herniated disk in the neck, history of hepatitis C antibody positive, viral load negative, recently admitted to the hospital for pancreatitis and found to have biliary duct obstruction on liver biopsy, and left ovarian mass, possible dermoid cyst for which she was supposed to follow up with Gynecology as outpatient who has recurrent falls and now admitted for right foot fracture status post fall, right lower lobe infiltrate with bilateral effusions and ascites and lower extremity edema with mildly low albumin levels, questionable etiology for all this third spacing rule out cardiac causes, rule out other rheumatologic causes. Hyperkalemia improved. Discussed with Pulmonary for possible diagnostic thoracentesis by Interventional Radiology and slightly elevated tumor markers of CA-125 and CA 19-9 and CEA. We will obtain Hematology consult with . 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 Continue with diuresis. We will add further recommendation clinical course progresses. Continue with empiric antibiotics. UA is not done yet, reordered UA, urine culture, and urine drug screen. Follow up with carotid Doppler results. Cesar Lowery MD
[2018-02-25] MEDS: Oxycodone/Acetaminophen 5/325 mg Tab PO PRN (17:34)
--- NOTE | 2018-02-25 21:42 | CP.PCM.PN ---
Subjective - Date & Time of Evaluation Date of Evaluation: 02/25/18 Time of Evaluation: 09:15 - Subjective Subjective: patient with no cardiac events Review Of Systems Except As Marked, All Systems Reviewed And Found Negative. Constitutional: Negative for: Fever, Chills Cardiovascular: Positive for: Edema Respiratory: Positive for: Shortness of Breath Gastrointestinal: Negative for: Vomiting Musculoskeletal: Positive for: Foot Pain <Damon Mai - Last Filed: 02/23/18 21:52> Physical Exam - Physical Exam Appears: Non-toxic, No Acute Distress Skin: Normal Color, Warm, Dry, No Rash Head: Atraumatic, Normacephalic Eye(s): bilateral: Normal Inspection, PERRL Nose: Normal Oral Mucosa: Moist Lips: Normal Appearing Neck: Normal ROM Chest: Symmetrical Cardiovascular: Rhythm Regular, No Murmur Respiratory: No Accessory Muscle Use, Rales (Mild, no egophny) Gastrointestinal/Abdominal: Soft, No Tenderness Extremity: Normal ROM, Pedal Edema (3/4 pitting edema to the dorsum of right foot with echymosis), No Deformity, No Swelling Neurological/Psych: Oriented x3, Normal Speech Objective - Vital Signs/Intake and Output Vital Signs (last 24 hours): Temp Pulse Resp BP Pulse Ox 97.8 F 92 H 20 140/90 97 02/25/18 16:13 02/25/18 16:19 02/25/18 16:13 02/25/18 17:31 02/25/18 16:13 - Medications Medications: Current Medications Dextrose (Dextrose 50% Inj) 0 ml IV STAT PRN; Protocol PRN Reason: Hypoglycemia Protocol Dextrose (Glutose 15) 0 gm PO ONCE PRN; Protocol PRN Reason: Hypoglycemia Protocol Furosemide (Lasix) 40 mg IVP DAILY [facility] Last Admin: 02/24/18 10:55 Dose: 40 mg Gabapentin (Neurontin) 1,600 mg PO BID [facility] Last Admin: 02/25/18 17:30 Dose: 1,600 mg Glucagon (Glucagen Diagnostic Kit) 0 mg IM STAT PRN; Protocol PRN Reason: Hypoglycemia Protocol Azithromycin 500 mg/ Sodium (Chloride) 250 mls @ 250 mls/hr IVPB DAILY [facility] PRN Reason: Protocol Last Admin: 02/25/18 09:47 Dose: 250 mls/hr Ceftriaxone Sodium 1 gm/ (Sodium Chloride) 100 mls @ 100 mls/hr IVPB DAILY [facility] PRN Reason: Protocol Last Admin: 02/25/18 09:45 Dose: 100 mls/hr Dextrose (Dextrose 5% In Water 1000 Ml) 1,000 mls @ 0 mls/hr IV .Q0M PRN; Protocol; Per Protocol PRN Reason: Hypoglycemia Protocol Insulin Human Regular (Novolin R) 0 unit SC ACHS [facility] PRN Reason: Protocol Last Admin: 02/25/18 17:30 Dose: 1 unit Metformin HCl (Glucophage) 1,000 mg PO BIDCC [facility] Last Admin: 02/25/18 17:30 Dose: 1,000 mg Metoprolol Tartrate (Lopressor) 25 mg PO BIDBS [facility] Last Admin: 02/25/18 17:31 Dose: 25 mg Oxycodone/Acetaminophen (Percocet 5/325 Mg Tab) 1 tab PO Q6H PRN PRN Reason: Pain, severe (8-10) Stop: 02/27/18 09:25 Last Admin: 02/25/18 17:34 Dose: 1 tab Pantoprazole Sodium (Protonix Ec Tab) 40 mg PO DAILY [facility] Last Admin: 02/25/18 09:34 Dose: 40 mg Pneumococcal Polyvalent Vaccine (Pneumovax 23 Vaccine) 0.5 ml IM .ONCE ONE Stop: 02/26/18 11:01 - Labs Labs: 02/24/18 07:16 02/24/18 07:16 PT 10.2 SECONDS (9.7-12.2) 02/23/18 16:33 INR 0.9 02/23/18 16:33 APTT 31 SECONDS (21-34) 02/23/18 16:33 Assessment and Plan - Assessment and Plan (Free Text) Assessment: 48 F admitted for right foot pain and swelling B/L Small pleural effusions Given Normal ProBNP levels unlikely CHF But will check ECHO Continue all meds Will follow
[2018-02-26] MEDS: Oxycodone/Acetaminophen 5/325 mg Tab PO PRN ×2 (00:29→11:00)
[2018-02-26 07:25] LABS: BASO # 0.1 K/uL (0.0-0.2); BASO % 1.2 % (0.0-2.0); EOS # 0.2 K/uL (0.0-0.7); EOS % 3.4 % (0.0-4.0); HEMOGLOBIN 10.6 g/dL (11.0-16.0); LYMPH # 2.1 K/uL (1.0-4.3); LYMPH % 28.5 % (20.0-40.0); MEAN CELL VOLUME 93.4 fL (81.0-99.0); MEAN CORPUSCULAR HEMOGLOBIN 31.9 pg (27.0-31.0); MEAN CORPUSCULAR HGB CONC 34.1 g/dL (33.0-37.0); MEAN PLATELET VOLUME 8.4 fL (7.2-11.7); MONO # 0.6 K/uL (0.0-0.8); MONO % 7.9 % (0.0-10.0); NEUT # 4.4 K/uL (1.8-7.0); NRBC % 0.1 % (0.0-2.0); RBC 3.34 Mil/uL (3.80-5.20); RED CELL DISTRIBUTION WIDTH 13.8 % (11.5-14.5); WHITE BLOOD COUNT 7.4 K/uL (4.8-10.8)
[2018-02-26 07:40] LABS: ALB/GLOB RATIO 0.6 (1.0-2.1); ALBUMIN 2.1 g/dL (3.5-5.0); ALT/SGPT 22 U/L (9-52); AST/SGOT 40 U/L (14-36); BLOOD UREA NITROGEN 30 mg/dL (7-17); CALCIUM 7.7 mg/dl (8.6-10.4); GFR AFRICAN-AMERICAN > 60; GFR NON-AFRICAN AMERICAN 59
--- NOTE | 2018-02-26 08:30 | CP.PCM.PN ---
<Edilberto Sigala - Last Filed: 02/26/18 16:28> Subjective - Date & Time of Evaluation Date of Evaluation: 02/26/18 Time of Evaluation: 09:30 - Subjective Subjective: Pulmonology- Dr. Keita's service Patient seen and examined in no acute distress. Patient to have thoracentesis performed. Patient is concerned that the procedure will be painful. Patient states that her breathing is improved. Objective - Vital Signs/Intake and Output Vital Signs (last 24 hours): Temp Pulse Resp BP Pulse Ox 98.2 F 85 20 112/74 96 02/25/18 23:35 02/26/18 04:03 02/25/18 23:35 02/25/18 23:35 02/25/18 23:35 Intake and Output: 02/26/18 02/26/18 06:59 18:59 Intake Total 240 Balance 240 - Medications Medications: Current Medications Dextrose (Dextrose 50% Inj) 0 ml IV STAT PRN; Protocol PRN Reason: Hypoglycemia Protocol Dextrose (Glutose 15) 0 gm PO ONCE PRN; Protocol PRN Reason: Hypoglycemia Protocol Furosemide (Lasix) 40 mg IVP DAILY [facility] Last Admin: 02/24/18 10:55 Dose: 40 mg Gabapentin (Neurontin) 1,600 mg PO BID [facility] Last Admin: 02/25/18 17:30 Dose: 1,600 mg Glucagon (Glucagen Diagnostic Kit) 0 mg IM STAT PRN; Protocol PRN Reason: Hypoglycemia Protocol Azithromycin 500 mg/ Sodium (Chloride) 250 mls @ 250 mls/hr IVPB DAILY [facility] PRN Reason: Protocol Last Admin: 02/25/18 09:47 Dose: 250 mls/hr Ceftriaxone Sodium 1 gm/ (Sodium Chloride) 100 mls @ 100 mls/hr IVPB DAILY [facility] PRN Reason: Protocol Last Admin: 02/25/18 09:45 Dose: 100 mls/hr Dextrose (Dextrose 5% In Water 1000 Ml) 1,000 mls @ 0 mls/hr IV .Q0M PRN; Protocol; Per Protocol PRN Reason: Hypoglycemia Protocol Insulin Human Regular (Novolin R) 0 unit SC ACHS [facility] PRN Reason: Protocol Last Admin: 02/25/18 21:52 Dose: Not Given [facility] Admin: 06/03/18 17:30 Dose: 1,000 mg Metoprolol Tartrate (Lopressor) 25 mg PO BIDBS [facility] Last Admin: 02/25/18 17:31 Dose: 25 mg Oxycodone/Acetaminophen (Percocet 5/325 Mg Tab) 1 tab PO Q6H PRN PRN Reason: Pain, severe (8-10) Stop: 02/27/18 09:25 Last Admin: 02/26/18 00:29 Dose: 1 tab Pantoprazole Sodium (Protonix Ec Tab) 40 mg PO DAILY [facility] Last Admin: 02/25/18 09:34 Dose: 40 mg Pneumococcal Polyvalent Vaccine (Pneumovax 23 Vaccine) 0.5 ml IM .ONCE ONE Stop: 02/26/18 11:01 - Labs Labs: 02/26/18 07:16 02/26/18 07:16 PT 10.2 SECONDS (9.7-12.2) 02/23/18 16:33 INR 0.9 02/23/18 16:33 APTT 31 SECONDS (21-34) 02/23/18 16:33 - Constitutional Appears: Non-toxic, No Acute Distress - Head Exam Head Exam: ATRAUMATIC - Eye Exam Eye Exam: EOMI, Normal appearance - ENT Exam ENT Exam: Mucous Membranes Moist - Neck Exam Neck Exam: Full ROM - Respiratory Exam Respiratory Exam: NORMAL BREATHING PATTERN - Neurological Exam Neurological Exam: Alert, Awake, Oriented x3 - Psychiatric Exam Psychiatric exam: Anxious - Skin Skin Exam: Dry, Normal Color, Warm Assessment and Plan (1) Pleural effusion Assessment & Plan: Noted on CT imaging 02/23 Will likely need thoracentesis- F/U fluid studies Lasix daily Status: Acute (2) Dyspnea Assessment & Plan: On admission, patient with complaints of dyspnea. Imaging confirms bilateral Pleural effusion. (Right greater than left). Concerns for possible pneumonia as well. Started on Azithromycin and Ceftriaxone 02/24 Duonebs PRN Status: Acute (3) Asthma Assessment & Plan: Duonebs PRN Smoking cessation warranted Status: Chronic (4) Elevated tumor markers Assessment & Plan: CEA, CA 19-9, CA 125 elevated Discussed with primary- further workup in light of history of ovarian mass Status: Chronic (5) Tobacco use Assessment & Plan: Smoking cessation Status: Chronic <Rogelio Keita - Last Filed: 02/26/18 16:38> Objective - Vital Signs/Intake and Output Vital Signs (last 24 hours): Temp Pulse Resp BP Pulse Ox 97.5 F L 85 18 141/86 95 02/26/18 15:47 02/26/18 15:47 02/26/18 15:47 02/26/18 15:47 02/26/18 15:47 Intake and Output: 02/26/18 02/26/18 06:59 18:59 Intake Total 240 300 Balance 240 300 - Medications Medications: Current Medications Al Hydrox/Mg Hydrox/Simethicone (Maalox Plus 30 Ml) 30 ml PO Q8H PRN PRN Reason: Indigestion / Heartburn Dextrose (Dextrose 50% Inj) 0 ml IV STAT PRN; Protocol PRN Reason: Hypoglycemia Protocol Dextrose (Glutose 15) 0 gm PO ONCE PRN; Protocol PRN Reason: Hypoglycemia Protocol Docusate Sodium (Colace) 100 mg PO DAILY [facility] Furosemide (Lasix) 40 mg IVP DAILY [facility] Last Admin: 02/26/18 10:34 Dose: 40 mg Gabapentin (Neurontin) 1,600 mg PO BID [facility] Last Admin: 02/26/18 10:24 Dose: 1,600 mg Azithromycin 500 mg/ Sodium (Chloride) 250 mls @ 250 mls/hr IVPB DAILY [facility] PRN Reason: Protocol Last Admin: 02/26/18 10:35 Dose: 250 mls/hr Ceftriaxone Sodium 1 gm/ (Sodium Chloride) 100 mls @ 100 mls/hr IVPB DAILY [facility] PRN Reason: Protocol Last Admin: 02/26/18 10:35 Dose: 100 mls/hr Dextrose (Dextrose 5% In Water 1000 Ml) 1,000 mls @ 0 mls/hr IV .Q0M PRN; Protocol; Per Protocol PRN Reason: Hypoglycemia Protocol Insulin Human Regular (Novolin R) 0 unit SC ACHS [facility] PRN Reason: Protocol Last Admin: 02/26/18 13:33 Dose: Not Given Metformin HCl (Glucophage) 1,000 mg PO BIDCC [facility] Last Admin: 02/26/18 10:29 Dose: 1,000 mg Metoprolol Tartrate (Lopressor) 25 mg PO BIDBS [facility] Last Admin: 02/26/18 10:29 Dose: 25 mg Morphine Sulfate (Morphine) 1 mg IVP Q6H PRN PRN Reason: Pain, severe (8-10) Pantoprazole Sodium (Protonix Ec Tab) 40 mg PO DAILY [facility] Last Admin: 02/26/18 10:30 Dose: 40 mg - Labs Labs: 02/26/18 07:16 02/26/18 07:16 PT 10.2 SECONDS (9.7-12.2) 02/23/18 16:33 INR 0.9 02/23/18 16:33 APTT 31 SECONDS (21-34) 02/23/18 16:33 Attending/Attestation - Attestation I have personally seen and examined this patient.: Yes I have fully participated in the care of the patient.: Yes I have reviewed all pertinent clinical information, including history, physical exam and plan: Yes Notes (Text): 02/26/18 16:38 patient seen and examined CAT scan consistent with effusion and infiltrate Consider switching to Zosyn as patient was recently admitted Continue Lasix Thoracentesis by IR/fluid analysis
[2018-02-26 09:29] LABS: SQUAMOUS EPITHIAL 9 /hpf (0-5); URINE BILIRUBIN NEGATIVE (NEGATIVE); URINE BLOOD 1+ (NEGATIVE); URINE CALCIUM OXALATE CRYSTALS OCC /hpf (<OCC); URINE CLARITY Hazy (Clear); URINE COLOR Amber (YELLOW); URINE GLUCOSE (UA) 2+ mg/dL (Normal); URINE HYALINE CAST >20 /lpf (0-2); URINE LEUKOCYTE ESTERASE 3+ Leu/uL (Negative); URINE PROTEIN 3+ mg/dL (NEGATIVE); URINE UROBILINOGEN NORMAL mg/dL (0.2-1.0); WBC CLUMPS OCC /hpf
[2018-02-26 09:34] LABS: HCG,QUALITATIVE URINE NEGATIVE (NEGATIVE)
[2018-02-26 09:35] LABS: URINE BACTERIA FEW (<OCC)
[2018-02-26 09:51] LABS: BARBITURATES, UR NEGATIVE (NEGATIVE); BENZODIAZEPINES, UR NEGATIVE (NEGATIVE); OPIATES, UR NEGATIVE (NEGATIVE); PHENCYCLIDINE, UR NEGATIVE (NEGATIVE)
--- NOTE | 2018-02-26 10:18 | VASCLAB ---
PROCEDURE: HISTORY: falls COMPARISON: None available. TECHNIQUE: Grayscale and duplex Doppler evaluation of the cervical carotid and vertebral arteries were performed. The common carotid, carotid bifurcations and cervical Internal Carotid Artery (ICA) and proximal External Carotid Artery (ECA) were evaluated. The vertebral arteries were evaluated for gross patency and flow direction. Report prepared by ISRAEL Perez, RVT FINDINGS: RIGHT CAROTID ARTERIES: 1. Common Carotid Artery: No significant focal plaque formation of the right common carotid artery. Maximum Peak Systolic velocity: 75 cm/sec: End-diastolic velocity 18 cm/sec. 2. Carotid Bifurcation: plaque formation. Maximum Peak Systolic velocity: 35 cm/sec: End-diastolic velocity 9 cm/sec. 3. Internal Carotid Artery: Plaque description: 3.1. Proximal Segment: Peak systolic velocity 44 cm/sec: End-diastolic velocity 10 cm/sec - % stenosis 3.2. Middle Segment: Peak systolic velocity 67 cm/sec: End-diastolic velocity 26 cm/sec - % stenosis 3.3. Distal Segment: Peak systolic velocity 92 cm/sec: End-diastolic velocity 37 cm/sec - % stenosis 4. External Carotid Artery: No significant focal plaque formation. Peak systolic velocity 71 cm/sec 5. ICA/CCA Ratio: 1.5 LEFT CAROTID ARTERIES: 1. Common Carotid Artery: No significant focal plaque formation of the left common carotid artery. Maximum Peak Systolic velocity: 71 cm/sec: End-diastolic velocity 23 cm/sec. 2. Carotid Bifurcation: plaque formation. Maximum Peak Systolic velocity: 50 cm/sec: End-diastolic velocity 16 cm/sec. 3. Internal Carotid Artery: Plaque description: 3.1. Proximal Segment: Peak systolic velocity 48 cm/sec: End-diastolic velocity 19 cm/sec - % stenosis 3.2. Middle Segment: Peak systolic velocity 72 cm/sec: End-diastolic velocity 27 cm/sec - % stenosis 3.3. Distal Segment: Peak systolic velocity 63 cm/sec: End-diastolic velocity 23 cm/sec - % stenosis 4. External Carotid Artery: No significant focal plaque formation. Peak systolic velocity cm/sec 5. ICA/CCA Ratio: 1.1 VERTEBRAL ARTERIES: 1. Right Vertebral Artery: The right vertebral artery flow direction is antegrade. 2. Left Vertebral Artery: The left vertebral artery flow direction is antegrade. OTHER FINDINGS: 1. Right Brachial Blood pressure: 120/60 mmHg. 2. Left Brachial Blood pressure: 120/60 mmHg. IMPRESSION: RIGHT: Duplex scan does not suggest hemodynamically significant stenosis of the right extracranial carotid arteries. LEFT: Duplex scan does not suggest hemodynamically significant stenosis of the left extracranial carotid arteries.
[2018-02-26] MEDS: Pantoprazole 40 mg EC Tab PO SCH (10:30)
[2018-02-26] MEDS: Azithromycin 500 MG in Sodium Chloride 0.9% 250 ML IVPB SCH (10:35)
[2018-02-26] MEDS: (Novolin R) Insulin Human Regular 100 units/ml vial SC SCH ×4 (10:36→21:35)
[2018-02-26] MEDS ORDERED: Pneumococcal 23-Valent Vaccine IM ONE (11:00)
[2018-02-26 11:08] LABS: ANA PATTERN HOMOGENOUS
--- NOTE | 2018-02-26 11:23 | CP.PCM.PN ---
Subjective - Date & Time of Evaluation Date of Evaluation: 02/26/18 Time of Evaluation: 11:25 - Subjective Subjective: Progress note dictated #[id number] Objective - Vital Signs/Intake and Output Vital Signs (last 24 hours): Temp Pulse Resp BP Pulse Ox 98.1 F 89 20 145/85 95 02/26/18 09:33 02/26/18 10:36 02/26/18 09:33 02/26/18 10:34 02/26/18 10:36 Intake and Output: 02/26/18 02/26/18 06:59 18:59 Intake Total 240 Balance 240 - Medications Medications: Current Medications Dextrose (Dextrose 50% Inj) 0 ml IV STAT PRN; Protocol PRN Reason: Hypoglycemia Protocol Dextrose (Glutose 15) 0 gm PO ONCE PRN; Protocol PRN Reason: Hypoglycemia Protocol Furosemide (Lasix) 40 mg IVP DAILY [facility] Last Admin: 02/26/18 10:34 Dose: 40 mg Gabapentin (Neurontin) 1,600 mg PO BID [facility] Last Admin: 02/26/18 10:24 Dose: 1,600 mg Glucagon (Glucagen Diagnostic Kit) 0 mg IM STAT PRN; Protocol PRN Reason: Hypoglycemia Protocol Azithromycin 500 mg/ Sodium (Chloride) 250 mls @ 250 mls/hr IVPB DAILY [facility] PRN Reason: Protocol Last Admin: 02/26/18 10:35 Dose: 250 mls/hr Ceftriaxone Sodium 1 gm/ (Sodium Chloride) 100 mls @ 100 mls/hr IVPB DAILY [facility] PRN Reason: Protocol Last Admin: 02/26/18 10:35 Dose: 100 mls/hr Dextrose (Dextrose 5% In Water 1000 Ml) 1,000 mls @ 0 mls/hr IV .Q0M PRN; Protocol; Per Protocol PRN Reason: Hypoglycemia Protocol Insulin Human Regular (Novolin R) 0 unit SC ACHS [facility] PRN Reason: Protocol Last Admin: 02/26/18 10:36 Dose: 2 unit Metformin HCl (Glucophage) 1,000 mg PO BIDCC [facility] Last Admin: 02/26/18 10:29 Dose: 1,000 mg Metoprolol Tartrate (Lopressor) 25 mg PO BIDBS [facility] Last Admin: 02/26/18 10:29 Dose: 25 mg Oxycodone/Acetaminophen (Percocet 5/325 Mg Tab) 1 tab PO Q6H PRN PRN Reason: Pain, severe (8-10) Stop: 02/27/18 09:25 Last Admin: 02/26/18 11:00 Dose: 1 tab Pantoprazole Sodium (Protonix Ec Tab) 40 mg PO DAILY [facility] Last Admin: 02/26/18 10:30 Dose: 40 mg - Labs Labs: 02/26/18 07:16 02/26/18 07:16 PT 10.2 SECONDS (9.7-12.2) 02/23/18 16:33 INR 0.9 02/23/18 16:33 APTT 31 SECONDS (21-34) 02/23/18 16:33
--- NOTE | 2018-02-26 11:38 | VASCLAB ---
PROCEDURE: Lower Extremity Venous Duplex Exam. HISTORY: Elevated D dimer PRIORS: None. TECHNIQUE: Bilateral common femoral, femoral, popliteal and posterior tibial, peroneal and great saphenous veins were evaluated. Flow was assessed with color Doppler, compressibility, assessment of phasic flow and augmentation response. Report prepared by REMBERTO Avila FINDINGS: RIGHT: 1. Common Femoral Vein: 1.1. Compressibility - Fully compressible: Thrombus - None : Flow - Phasic: Augmentation -Normal: Reflux - None. 2. Femoral Vein: 2.1. Compressibility - Fully compressible: Thrombus - None : Flow - Phasic: Augmentation -Normal: Reflux - None. 3. Popliteal Vein: 3.1. Compressibility - Fully compressible: Thrombus - None : Flow - Phasic: Augmentation -Normal: Reflux - None. 4. Posterior Tibial Vein: 4.1. Unable to examine 5. Peroneal Vein: 5.1. Unable to examine 6. Great Saphenous Vein: (upper only) 6.1. Compressibility - Fully compressible: Thrombus - None: Flow - Phasic: Augmentation - Normal: Reflux - None. LEFT: 1. Common Femoral Vein: 1.1. Compressibility - Fully compressible: Thrombus - None: Flow - Phasic: Augmentation -Normal: Reflux - None. 2. Femoral Vein: 2.1. Compressibility - Fully compressible: Thrombus - None: Flow - Phasic: Augmentation -Normal: Reflux - None. 3. Popliteal Vein: 3.1. Compressibility - Fully compressible: Thrombus - None : Flow - Phasic: Augmentation -Normal: Reflux - None. 4. Posterior Tibial Vein: 4.1. Compressibility - Fully compressible: Thrombus - None: Flow - Phasic: Augmentation -Normal: Reflux - None. 5. Peroneal Vein: 5.1. Compressibility - Fully compressible: Thrombus - None: Flow - Phasic: Augmentation -Normal: Reflux - None. 6. Great Saphenous Vein: 6.1. Compressibility - Fully compressible: Thrombus - None: Flow - Phasic: Augmentation - Normal: Reflux - None. OTHER FINDINGS: Right: Right calf bandaged due to fracture. Left: None significant. IMPRESSION: Right: No evidence of deep or superficial vein thrombosis of the right lower extremity, for the imaged veins. Normal valve function noted of the right side. Left: No evidence of deep or superficial vein thrombosis of the left lower extremity. Normal valve function noted of the left side.
[2018-02-26] MEDS ORDERED: Alum-Mag Hydrox-Simethicone Susp (30 mL) PO PRN (12:15)
--- NOTE | 2018-02-26 13:02 | CARD ---
APPROVED REPORT EXAM: Two-dimensional and M-mode echocardiogram with Doppler and color Doppler. Other Information Quality : GoodRhythm : INDICATION Pericardial Effusion Dyspnea Pleural Effusion Congestive Heart Failure RISK FACTORS Diabetes 2D DIMENSIONS IVSd1.2 (0.7-1.1cm)LVDd4.2 (3.9-5.9cm) PWd1.2 (0.7-1.1cm)LVDs3.2 (2.5-4.0cm) FS (%) 24.1 %LVEF (%)65.0 (>50%) M-Mode DIMENSIONS RVDd1.66 (2.1-3.2cm)Left Atrium (MM)3.74 (2.5-4.0cm) IVSd1.02 (0.7-1.1cm)Aortic Root2.55 (2.2-3.7cm) LVDd5.11 (4.0-5.6cm)Aortic Cusp Exc.1.88 (1.5-2.0cm) PWd1.11 (0.7-1.1cm)FS (%) 38 % LVDs3.17 (2.0-3.8cm)LVEF (%)68 (>50%) Mitral Valve MV E Flacvbez01.9cm/sMV A Fmybmvxi80.0cm/sE/A ratio1.2 TDI E/Lateral E'0.0E/Medial E'0.0 Tricuspid Valve TR Peak Gxrmsafw317at/sTR Peak Gr.[id number] LEFT VENTRICLE The left ventricle is normal size. There is mild concentric left ventricular hypertrophy. Left ventricle systolic function is normal. The Ejection Fraction is 60-65%. There is normal LV segmental wall motion. The left ventricular diastolic function is normal. There is no ventricular septal defect visualized. RIGHT VENTRICLE The right ventricle is normal size. The right ventricular systolic function is normal. ATRIA The left atrium size is normal. The right atrium size is normal. AORTIC VALVE The aortic valve is tri-cuspid. The aortic valve is normal in structure. No aortic regurgitation is present. There is no aortic valvular stenosis. MITRAL VALVE The mitral valve is normal in structure. There is no evidence of mitral valve prolapse. Mitral regurgitation is trace. TRICUSPID VALVE The tricuspid valve is normal in structure. There is trace tricuspid regurgitation. There is no pulmonary hypertension. PULMONIC VALVE The pulmonary valve is normal in structure. There is no pulmonic valvular regurgitation. GREAT VESSELS The aortic root is normal in size. The ascending aorta is normal in size. The IVC is normal in size and collapses >50% with inspiration. PERICARDIAL EFFUSION There are no echocardiographic indications of cardiac tamponade. There is a small circumferential pericardial effusion. There is moderate pleural effusion. <Conclusion> Left ventricle systolic function is normal. The Ejection Fraction is 60-65%. The left ventricular diastolic function is normal. Mitral regurgitation is trace. There are no echocardiographic indications of cardiac tamponade. There is a small circumferential pericardial effusion.
--- NOTE | 2018-02-26 14:50 | CARD ---
APPROVED REPORT EKG Measurement Heart [id number] <Conclusion> Normal sinus rhythm Possible Left atrial enlargement Low voltage QRS Cannot rule out Anterior infarct, age undetermined Abnormal ECG
[2018-02-26] MEDS: Morphine 4 MG/ML VIAL IVP PRN (20:38)
--- NOTE | 2018-02-26 23:50 | CP.PCM.PN ---
Subjective - Date & Time of Evaluation Date of Evaluation: 02/26/18 Time of Evaluation: 09:10 - Subjective Subjective: Patient seen and evaluated Pro BNP normal ECHO: Normal EF Objective - Vital Signs/Intake and Output Vital Signs (last 24 hours): Temp Pulse Resp BP Pulse Ox 97.5 F L 89 18 138/62 95 02/26/18 15:47 02/26/18 18:00 02/26/18 15:47 02/26/18 17:25 02/26/18 15:47 Intake and Output: 02/26/18 02/27/18 18:59 06:59 Intake Total 300 Balance 300 - Medications Medications: Current Medications Al Hydrox/Mg Hydrox/Simethicone (Maalox Plus 30 Ml) 30 ml PO Q8H PRN PRN Reason: Indigestion / Heartburn Dextrose (Dextrose 50% Inj) 0 ml IV STAT PRN; Protocol PRN Reason: Hypoglycemia Protocol Dextrose (Glutose 15) 0 gm PO ONCE PRN; Protocol PRN Reason: Hypoglycemia Protocol Docusate Sodium (Colace) 100 mg PO DAILY [facility] Furosemide (Lasix) 40 mg IVP DAILY [facility] Last Admin: 02/26/18 10:34 Dose: 40 mg Gabapentin (Neurontin) 1,600 mg PO BID [facility] Last Admin: 02/26/18 17:26 Dose: 1,600 mg Azithromycin 500 mg/ Sodium (Chloride) 250 mls @ 250 mls/hr IVPB DAILY [facility] PRN Reason: Protocol Last Admin: 02/26/18 10:35 Dose: 250 mls/hr Ceftriaxone Sodium 1 gm/ (Sodium Chloride) 100 mls @ 100 mls/hr IVPB DAILY [facility] PRN Reason: Protocol Last Admin: 02/26/18 10:35 Dose: 100 mls/hr Dextrose (Dextrose 5% In Water 1000 Ml) 1,000 mls @ 0 mls/hr IV .Q0M PRN; Protocol; Per Protocol PRN Reason: Hypoglycemia Protocol Insulin Human Regular (Novolin R) 0 unit SC ACHS [facility] PRN Reason: Protocol Last Admin: 02/26/18 21:35 Dose: Not Given Metformin HCl (Glucophage) 1,000 mg PO BIDCC [facility] Last Admin: 02/26/18 17:27 Dose: 1,000 mg Metoprolol Tartrate (Lopressor) 25 mg PO BIDBS [facility] Last Admin: 02/26/18 17:25 Dose: 25 mg Morphine Sulfate (Morphine) 1 mg IVP Q6H PRN PRN Reason: Pain, severe (8-10) Last Admin: 02/26/18 20:38 Dose: 1 mg Pantoprazole Sodium (Protonix Ec Tab) 40 mg PO DAILY [facility] Last Admin: 02/26/18 10:30 Dose: 40 mg - Labs Labs: 02/26/18 07:16 02/26/18 07:16 PT 10.2 SECONDS (9.7-12.2) 02/23/18 16:33 INR 0.9 02/23/18 16:33 APTT 31 SECONDS (21-34) 02/23/18 16:33
--- NOTE | 2018-02-27 00:14 | PN ---
DATE: 02/26/2018 SUBJECTIVE: The patient was seen and examined at bedside. The patient claims that she felt nauseous and felt dizzy after she got Percocet, feeling anxious regarding the procedure. Denies any headache. Denies any chest pain. Shortness of breath remains the same. Leg swelling is improving. REVIEW OF SYSTEMS: All other systems reviewed and was found to be negative. PHYSICAL EXAMINATION: GENERAL: Middle-aged female, lying in bed, in no acute distress. VITAL SIGNS: Blood pressure 143/85, pulse 98, respirations 18, temperature 97.5 degrees Fahrenheit, O2 saturation is 95% on room air. HEENT: Pupils are equal, round, and reacting to light and accommodation. Extraocular muscles are intact. No icterus. No pallor. No oral thrush. No oropharyngeal congestion. NECK: Supple. No JVD. LUNGS: Bilateral vesicular breath sounds. Bilateral basal crackles. CVS: S1, S2 present, regular. ABDOMEN: Soft and nontender. Bowel sounds present. No guarding. No rigidity. No rebound tenderness noted. 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 No focal deficits noted. EXTREMITIES: 2+ edema. Palpable peripheral pulses. Right foot with a splint in place. MEDICATIONS: Include Maalox as needed, Zithromax 500 mg IV daily, Rocephin 1 gm daily, Colace daily, Lasix 40 mg IV push daily, gabapentin 1600 mg p.o. b.i.d., metformin 1000 mg p.o. b.i.d., Lopressor 25 mg p.o. b.i.d., morphine 1 mg IV push every 6 hours p.r.n., Protonix 40 mg p.o. daily. LABORATORY DATA: Labs done from this morning: WBC 7.4, hemoglobin 10.6, hematocrit 31.2, platelets 225. Sodium 140, potassium 4.3, chloride 108, bicarbonate 27, BUN 30, creatinine 1, glucose 220, calcium 7.7. AST 40, ALT 22, alkaline phosphatase 244, total protein 5.5, albumin 2.1. Urine: 3+ protein, 2+ glucose, 1+ blood, wbc's 840, leukocyte esterase 3+. Urine drug screen negative. Blood cultures x2 negative. Urine culture: 50,000 to 100,000 colony forming units, multiple species. Lower extremity Doppler negative. Carotid Doppler negative. Echocardiogram: EF is 60% to 65%. Left ventricular systolic function is normal. Diastolic function is normal. Mitral regurgitation trace. No echocardiographic indications of cardiac tamponade. Small circumferential pericardial effusion. ASSESSMENT AND PLAN: A middle-aged female with a history of diabetes mellitus for more than 15 years, fibromyalgia, restless legs syndrome, carpal tunnel syndrome, hepatitis C positive with hepatitis C RNA undetectable viral load, recent admission in the month of November for acute pancreatitis, found to have acute biliary ductal obstruction on liver biopsy with possible left dermoid cyst on the CT, admitted for bilateral lower extremity edema, bilateral pleural effusions and dyspnea on exertion and right lower lobe infiltrate with compressive atelectasis and history of recurrent falls of unclear etiology, now with right foot fracture with slightly elevated tumor markers and FABIEN positive. The rest of the workup so far is negative. Echocardiogram with normal ejection fraction. For possible thoracentesis by interventional radiology. She is found to have 3+ protein in the urine. We will quantify the protein losses with 24-hour urine collection for protein and creatinine and creatinine clearance. We will obtain hematology evaluation and GI consult. We will request [employer]IVE consult for the left possible dermoid cyst. Continue with current empiric antibiotics with culture results. Discussed with Pulmonary. We will continue with the GI and DVT prophylaxis. Give Zofran as needed for nausea. The patient is requesting morphine instead of Percocet, so Percocet is discontinued and morphine is ordered for right foot pain. Podiatry input appreciated. Continue with physical therapy and occupational therapy. Cesar Lowery MD
[2018-02-27] MEDS: Morphine 4 MG/ML VIAL IVP PRN ×3 (03:51→22:47)
--- NOTE | 2018-02-27 09:56 | CP.PCM.PN ---
Subjective - Date & Time of Evaluation Date of Evaluation: 02/27/18 Time of Evaluation: 10:00 - Subjective Subjective: Progress note dictated #[id number] Objective - Vital Signs/Intake and Output Vital Signs (last 24 hours): Temp Pulse Resp BP Pulse Ox 98.0 F 95 H 20 108/56 L 96 02/27/18 08:21 02/27/18 08:21 02/27/18 08:21 02/27/18 08:31 02/27/18 08:21 - Medications Medications: Current Medications Al Hydrox/Mg Hydrox/Simethicone (Maalox Plus 30 Ml) 30 ml PO Q8H PRN PRN Reason: Indigestion / Heartburn Dextrose (Dextrose 50% Inj) 0 ml IV STAT PRN; Protocol PRN Reason: Hypoglycemia Protocol Dextrose (Glutose 15) 0 gm PO ONCE PRN; Protocol PRN Reason: Hypoglycemia Protocol Docusate Sodium (Colace) 100 mg PO DAILY [facility] Furosemide (Lasix) 40 mg IVP DAILY [facility] Last Admin: 02/26/18 10:34 Dose: 40 mg Gabapentin (Neurontin) 1,600 mg PO BID [facility] Last Admin: 02/26/18 17:26 Dose: 1,600 mg Azithromycin 500 mg/ Sodium (Chloride) 250 mls @ 250 mls/hr IVPB DAILY [facility] PRN Reason: Protocol Last Admin: 02/26/18 10:35 Dose: 250 mls/hr Ceftriaxone Sodium 1 gm/ (Sodium Chloride) 100 mls @ 100 mls/hr IVPB DAILY [facility] PRN Reason: Protocol Last Admin: 02/26/18 10:35 Dose: 100 mls/hr Insulin Human Regular (Novolin R) 0 unit SC ACHS [facility] PRN Reason: Protocol Last Admin: 02/26/18 21:35 Dose: Not Given Metformin HCl (Glucophage) 1,000 mg PO BIDCC [facility] Last Admin: 02/27/18 08:31 Dose: 1,000 mg Metoprolol Tartrate (Lopressor) 25 mg PO BIDBS [facility] Last Admin: 02/27/18 08:31 Dose: 25 mg Morphine Sulfate (Morphine) 1 mg IVP Q6H PRN PRN Reason: Pain, severe (8-10) Last Admin: 02/27/18 03:51 Dose: 1 mg Pantoprazole Sodium (Protonix Ec Tab) 40 mg PO DAILY [facility] Last Admin: 02/26/18 10:30 Dose: 40 mg - Labs Labs: 02/26/18 07:16 02/26/18 07:16 PT 10.2 SECONDS (9.7-12.2) 02/23/18 16:33 INR 0.9 02/23/18 16:33 APTT 31 SECONDS (21-34) 02/23/18 16:33
[2018-02-27] MEDS: Pantoprazole 40 mg EC Tab PO SCH (10:46)
[2018-02-27] MEDS: Azithromycin 500 MG in Sodium Chloride 0.9% 250 ML IVPB SCH (11:05)
[2018-02-27] MEDS: (Novolin R) Insulin Human Regular 100 units/ml vial SC SCH ×4 (11:19→21:37)
--- NOTE | 2018-02-27 11:44 | CP.PCM.PN ---
<Edilberto Sigala - Last Filed: 02/27/18 14:29> Subjective - Date & Time of Evaluation Date of Evaluation: 02/27/18 Time of Evaluation: 09:30 - Subjective Subjective: Pulm Progress Note- Dr. Keita's service Patient seen and examined in no acute distress. Patient is to have thoracentesis procedure this morning. Patient has no acute complaints. Objective - Vital Signs/Intake and Output Vital Signs (last 24 hours): Temp Pulse Resp BP Pulse Ox 98.0 F 95 H 20 108/56 L 96 02/27/18 08:21 02/27/18 10:24 02/27/18 08:21 02/27/18 11:00 02/27/18 08:21 - Medications Medications: Current Medications Al Hydrox/Mg Hydrox/Simethicone (Maalox Plus 30 Ml) 30 ml PO Q8H PRN PRN Reason: Indigestion / Heartburn Dextrose (Dextrose 50% Inj) 0 ml IV STAT PRN; Protocol PRN Reason: Hypoglycemia Protocol Dextrose (Glutose 15) 0 gm PO ONCE PRN; Protocol PRN Reason: Hypoglycemia Protocol Docusate Sodium (Colace) 100 mg PO DAILY [facility] Last Admin: 02/27/18 10:45 Dose: Not Given Furosemide (Lasix) 40 mg IVP DAILY [facility] Last Admin: 02/27/18 11:00 Dose: 40 mg Gabapentin (Neurontin) 1,600 mg PO BID [facility] Last Admin: 02/27/18 10:45 Dose: 1,600 mg Azithromycin 500 mg/ Sodium (Chloride) 250 mls @ 250 mls/hr IVPB DAILY [facility] PRN Reason: Protocol Last Admin: 02/27/18 11:05 Dose: 250 mls/hr Ceftriaxone Sodium 1 gm/ (Sodium Chloride) 100 mls @ 100 mls/hr IVPB DAILY [facility] PRN Reason: Protocol Last Admin: 02/27/18 10:49 Dose: 100 mls/hr Insulin Human Regular (Novolin R) 0 unit SC ACHS [facility] PRN Reason: Protocol Last Admin: 02/27/18 11:19 Dose: Not Given Metformin HCl (Glucophage) 1,000 mg PO BIDCC [facility] Last Admin: 02/27/18 08:31 Dose: 1,000 mg Metoprolol Tartrate (Lopressor) 25 mg PO BIDBS [facility] Last Admin: 02/27/18 08:31 Dose: 25 mg Morphine Sulfate (Morphine) 1 mg IVP Q6H PRN PRN Reason: Pain, severe (8-10) Last Admin: 02/27/18 03:51 Dose: 1 mg Pantoprazole Sodium (Protonix Ec Tab) 40 mg PO DAILY [facility] Last Admin: 02/27/18 10:46 Dose: 40 mg - Labs Labs: 02/26/18 07:16 02/26/18 07:16 PT 10.2 SECONDS (9.7-12.2) 02/23/18 16:33 INR 0.9 02/23/18 16:33 APTT 31 SECONDS (21-34) 02/23/18 16:33 - Constitutional Appears: Non-toxic, No Acute Distress - Head Exam Head Exam: ATRAUMATIC, NORMAL INSPECTION - Eye Exam Eye Exam: EOMI, Normal appearance Pupil Exam: NORMAL ACCOMODATION - ENT Exam ENT Exam: Mucous Membranes Moist - Neck Exam Neck Exam: Full ROM - Respiratory Exam Respiratory Exam: Rales, NORMAL BREATHING PATTERN. absent: Wheezes Additional comments: rales right lower lobe - Cardiovascular Exam Cardiovascular Exam: +S1, +S2 - Extremities Exam Additional comments: Right lower extremity wrapped in patrick bandage - Neurological Exam Neurological Exam: Alert, Awake, Oriented x3 - Psychiatric Exam Psychiatric exam: Normal Affect, Normal Mood - Skin Skin Exam: Normal Color, Warm Assessment and Plan (1) Pleural effusion Status: Acute (2) Dyspnea Status: Acute (3) Asthma Status: Chronic (4) Elevated tumor markers Status: Chronic (5) Tobacco use Status: Chronic - Assessment and Plan (Free Text) Assessment: (1) Pleural effusion Assessment & Plan: Noted on CT imaging 02/23 Thoracentesis today - 600 cc of clear fluid removed. F/U fluid studies Lasix Status: Acute (2) Dyspnea Assessment & Plan: On admission, patient with complaints of dyspnea. Imaging confirms bilateral Pleural effusion. (Right greater than left). Concerns for possible pneumonia as well. Started on Azithromycin and Ceftriaxone 02/24 Duonebs PRN Status: Acute (3) Asthma Assessment & Plan: Duonebs PRN Smoking cessation warranted Status: Chronic (4) Elevated tumor markers Assessment & Plan: CEA, CA 19-9, CA 125 elevated Discussed with primary- further workup in light of history of ovarian mass Status: Chronic (5) Tobacco use Assessment & Plan: Smoking cessation Status: Chronic Discussed with attending. <Rogelio Keita - Last Filed: 02/27/18 16:59> Objective - Vital Signs/Intake and Output Vital Signs (last 24 hours): Temp Pulse Resp BP Pulse Ox 97.7 F 87 18 147/87 97 02/27/18 15:48 02/27/18 15:48 02/27/18 15:48 02/27/18 15:48 02/27/18 15:48 Intake and Output: 02/27/18 02/27/18 06:59 18:59 Intake Total 450 Output Total 900 Balance -450 - Medications Medications: Current Medications Al Hydrox/Mg Hydrox/Simethicone (Maalox Plus 30 Ml) 30 ml PO Q8H PRN PRN Reason: Indigestion / Heartburn Dextrose (Dextrose 50% Inj) 0 ml IV STAT PRN; Protocol PRN Reason: Hypoglycemia Protocol Dextrose (Glutose 15) 0 gm PO ONCE PRN; Protocol PRN Reason: Hypoglycemia Protocol Docusate Sodium (Colace) 100 mg PO DAILY [facility] Last Admin: 02/27/18 10:45 Dose: Not Given Furosemide (Lasix) 40 mg IVP DAILY [facility] Last Admin: 02/27/18 11:00 Dose: 40 mg Gabapentin (Neurontin) 1,600 mg PO BID [facility] Last Admin: 02/27/18 10:45 Dose: 1,600 mg Azithromycin 500 mg/ Sodium (Chloride) 250 mls @ 250 mls/hr IVPB DAILY [facility] PRN Reason: Protocol Last Admin: 02/27/18 11:05 Dose: 250 mls/hr Ceftriaxone Sodium 1 gm/ (Sodium Chloride) 100 mls @ 100 mls/hr IVPB DAILY [facility] PRN Reason: Protocol Last Admin: 02/27/18 10:49 Dose: 100 mls/hr Insulin Human Regular (Novolin R) 0 unit SC ACHS [facility] PRN Reason: Protocol Last Admin: 02/27/18 12:52 Dose: 3 unit Metformin HCl (Glucophage) 1,000 mg PO BIDCC [facility] Last Admin: 02/27/18 08:31 Dose: 1,000 mg Metoprolol Tartrate (Lopressor) 25 mg PO BIDBS [facility] Last Admin: 02/27/18 08:31 Dose: 25 mg Morphine Sulfate (Morphine) 1 mg IVP Q6H PRN PRN Reason: Pain, severe (8-10) Last Admin: 02/27/18 13:12 Dose: 1 mg Pantoprazole Sodium (Protonix Ec Tab) 40 mg PO DAILY [facility] Last Admin: 02/27/18 10:46 Dose: 40 mg - Labs Labs: 02/26/18 07:16 02/26/18 07:16 PT 10.2 SECONDS (9.7-12.2) 02/23/18 16:33 INR 0.9 02/23/18 16:33 APTT 31 SECONDS (21-34) 02/23/18 16:33 Attending/Attestation - Attestation I have personally seen and examined this patient.: Yes I have fully participated in the care of the patient.: Yes I have reviewed all pertinent clinical information, including history, physical exam and plan: Yes Notes (Text): 02/27/18 16:58 Patient seen and examined Status post thoracentesis /600 mL FLUID removed fluid analysis continue IV antibiotics Autoimmune workup
--- NOTE | 2018-02-27 11:54 | PCM.SURG1 ---
Surgeon's Initial Post Op Note - Surgeon's Notes Surgeon: Faisal James MD Criminal Profiler: NONE Type of Anesthesia: Local Pre-Operative Diagnosis: Right pleural effusion Operative Findings: US showed moderate right effusion Post-Operative Diagnosis: Right pleural effusion Operation Performed: US guided right thoracentesis Specimen/Specimens Removed: 600 cc of clear fluid Estimated Blood Loss: EBL {In ML}: 0 Blood Products Given: N/A Drains Used: No Drains Post-Op Condition: Fair Date of Surgery/Procedure: 02/27/18 Time of Surgery/Procedure: 11:45
--- NOTE | 2018-02-27 12:39 | US ---
PROCEDURE: Date of procedure: 02/27/2018 Procedure: 1. Ultrasound-guided Right thoracentesis, CPT 34020 Medications: 6cc 1% Lidocaine HISTORY: Right pleural effusion TECHNIQUE: Following informed consent ,the Patients' right chest was marked. Procedure time-out was called, and the patient was placed in the sitting position and limited ultrasound showed a moderate right effusion. The patient's right back was prepped and draped in the usual sterile fashion. After the skin was anesthetized with lidocaine, a drainage catheter was advanced under ultrasound guidance into the pleural space. Ultrasound-guided thoracentesis was performed. A total of 600 cubic centimeters of clear fluid removed without complication. A Xeroform dressing was applied. IMPRESSION: Ultrasound guided Right thoracentesis. There were no immediate complications.
[2018-02-27 13:32] LABS: BODY FLUID TYPE PLEURAL/THORACENTESI
[2018-02-27 14:35] LABS: BF GROSS APPEARANCE SL CLOUDY (CLEAR); BODY FLUID MONO/MACROPHAGE 3 % (0-0); BODY FLUID TOTAL COUNT 100 (0-0)
--- NOTE | 2018-02-27 16:01 | CP.PCM.PN ---
Subjective - Date & Time of Evaluation Date of Evaluation: 02/27/18 Time of Evaluation: 09:25 - Subjective Subjective: Podiatry Progress Note- Dr Arnold 48F seen and evaluated at bedside for fractures to right medial cuneiform, 1st and second met bases. Patient resting comfortably, NAD. No acute events overnight. Patient reports pain to RLE is well-controlled, reports leg swelling has moderately decreased. Admits to walking OOB to bathroom on posterior splint without assistance. Denies N/V/F/D/C/SOB. Objective - Vital Signs/Intake and Output Vital Signs (last 24 hours): Temp Pulse Resp BP Pulse Ox 98 F 95 H 95 H 154/68 H 96 02/27/18 13:44 02/27/18 10:24 02/27/18 13:44 02/27/18 13:44 02/27/18 08:21 - Medications Medications: Current Medications Al Hydrox/Mg Hydrox/Simethicone (Maalox Plus 30 Ml) 30 ml PO Q8H PRN PRN Reason: Indigestion / Heartburn Dextrose (Dextrose 50% Inj) 0 ml IV STAT PRN; Protocol PRN Reason: Hypoglycemia Protocol Dextrose (Glutose 15) 0 gm PO ONCE PRN; Protocol PRN Reason: Hypoglycemia Protocol Docusate Sodium (Colace) 100 mg PO DAILY [facility] Last Admin: 02/27/18 10:45 Dose: Not Given Furosemide (Lasix) 40 mg IVP DAILY [facility] Last Admin: 02/27/18 11:00 Dose: 40 mg Gabapentin (Neurontin) 1,600 mg PO BID [facility] Last Admin: 02/27/18 10:45 Dose: 1,600 mg Azithromycin 500 mg/ Sodium (Chloride) 250 mls @ 250 mls/hr IVPB DAILY [facility] PRN Reason: Protocol Last Admin: 02/27/18 11:05 Dose: 250 mls/hr Ceftriaxone Sodium 1 gm/ (Sodium Chloride) 100 mls @ 100 mls/hr IVPB DAILY [facility] PRN Reason: Protocol Last Admin: 02/27/18 10:49 Dose: 100 mls/hr Insulin Human Regular (Novolin R) 0 unit SC ACHS [facility] PRN Reason: Protocol Last Admin: 02/27/18 12:52 Dose: 3 unit [facility] Last Admin: 02/27/18 08:31 Dose: 1,000 mg Metoprolol Tartrate (Lopressor) 25 mg PO BIDBS [facility] Last Admin: 02/27/18 08:31 Dose: 25 mg Morphine Sulfate (Morphine) 1 mg IVP Q6H PRN PRN Reason: Pain, severe (8-10) Last Admin: 02/27/18 13:12 Dose: 1 mg Pantoprazole Sodium (Protonix Ec Tab) 40 mg PO DAILY [facility] Last Admin: 02/27/18 10:46 Dose: 40 mg - Labs Labs: 02/26/18 07:16 02/26/18 07:16 PT 10.2 SECONDS (9.7-12.2) 02/23/18 16:33 INR 0.9 02/23/18 16:33 APTT 31 SECONDS (21-34) 02/23/18 16:33 - Constitutional Appears: Well, Non-toxic, No Acute Distress - Extremities Exam Additional comments: Posterior splint to RLE clean/dry/intact NVSI to digits x5 No pain upon calf squeeze - Neurological Exam Neurological Exam: Alert, Awake, Oriented x3 - Psychiatric Exam Psychiatric exam: Normal Affect, Normal Mood Assessment and Plan - Assessment and Plan (Free Text) Assessment: 48 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 Plan: Patient seen and evaluated Discussed with attending, Dr. Arnold CT scan: results show 1st and 2nd metatarsal base fx w/ medial cuneiform fracture, non-displaced. No navicular fracture Pt transitioned to bi-valved fiberglass cast WB status: NWB RLE in cast with walker or axillary crutch assistance. assistance Pain control regimen per medicine Pt is stable form podiatry standpoint for discharge. 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 Arnold, upon discharge. Podiatry signing- off. Re-consult as needed.
--- NOTE | 2018-02-27 17:29 | CP.PCM.CON ---
History of Present Illness - History of Present Illness History of Present Illness: 48 year old female with a history of HTN, DM, liver injury s/p biopsy (acute bile duct obstruction vs medication induced), admitted with foot pain and swelling, found to have a foot fracture, with elevated tumor markers. The patient reports to diminished appetite due to abdominal bloating but is unsure if she has lost weight. She reports to worsening foot pain which prompted her to come to the hospital. Review of her blood work shows an elevated CEA, CA-125 , and CA 19-9. Past medical history: HTN, DM, fibromyalgia Past surgical history: Cholecystectomy Family history: Denies hematologic and oncologic problems Social history: Former tobacco, denies alcohol Allergies: Hydromorphone, lidocaine Review of systems: All remaining review of systems including HEENT, cardiovascular, respiratory, gastrointestinal, genitourinary, musculoskeletal, dermatologic, neurologic, and psychiatric are negative unless mentioned in the HPI. Past Patient History - Past Medical History & Family History Past Medical History?: Yes - Past Social History Smoking Status: Light Smoker < 10 Cigarettes Daily - CARDIAC Hx Congestive Heart Failure: Yes - PULMONARY Hx Asthma: Yes - NEUROLOGICAL Hx Neurological Disorder: Yes (NEURPOATHTY) Hx Dizziness: Yes - HEENT Hx HEENT Problems: Yes (HX RETINA BLEEDING) Other/Comment: sclera both eye slightly jaundice - RENAL Hx Chronic Kidney Disease: No - ENDOCRINE/METABOLIC Hx Endocrine Disorders: Yes Hx Diabetes Mellitus Type 2: Yes - HEMATOLOGICAL/ONCOLOGICAL Hx Hepatitis C: Yes - INTEGUMENTARY Hx Dermatological Problems: Yes (SLIGHT JAUNDICE) Other/Comment: sclera both eye slightly jaundice - MUSCULOSKELETAL/RHEUMATOLOGICAL Hx Falls: Yes - GASTROINTESTINAL Hx Gall Bladder Disease: Yes Hx Pancreatitis: Yes - GENITOURINARY/GYNECOLOGICAL Hx Genitourinary Disorders: No Other/Comment: fibroids - PSYCHIATRIC Hx Substance Use: No - SURGICAL HISTORY Hx Cholecystectomy: Yes - ANESTHESIA Hx Anesthesia: Yes Hx Anesthesia Reactions: No Hx Malignant Hyperthermia: No Has any member of the family had a problem w/ anesthesia?: No Meds Allergies/Adverse Reactions: Allergies Allergy/AdvReac Type Severity Reaction Status Date / Time hydromorphone [From Dilaudid] Allergy SHORTNESS Verified 02/23/18 14:49 OF BREATH lidocaine Allergy Verified 02/23/18 14:49 - Medications Medications: Current Medications Al Hydrox/Mg Hydrox/Simethicone (Maalox Plus 30 Ml) 30 ml PO Q8H PRN PRN Reason: Indigestion / Heartburn Dextrose (Dextrose 50% Inj) 0 ml IV STAT PRN; Protocol PRN Reason: Hypoglycemia Protocol Dextrose (Glutose 15) 0 gm PO ONCE PRN; Protocol PRN Reason: Hypoglycemia Protocol Docusate Sodium (Colace) 100 mg PO DAILY [facility] Last Admin: 02/27/18 10:45 Dose: Not Given Furosemide (Lasix) 40 mg IVP DAILY [facility] Last Admin: 02/27/18 11:00 Dose: 40 mg Gabapentin (Neurontin) 1,600 mg PO BID [facility] Last Admin: 02/27/18 17:12 Dose: 1,600 mg Azithromycin 500 mg/ Sodium (Chloride) 250 mls @ 250 mls/hr IVPB DAILY [facility] PRN Reason: Protocol Last Admin: 02/27/18 11:05 Dose: 250 mls/hr Ceftriaxone Sodium 1 gm/ (Sodium Chloride) 100 mls @ 100 mls/hr IVPB DAILY [facility] PRN Reason: Protocol Last Admin: 02/27/18 10:49 Dose: 100 mls/hr Insulin Human Regular (Novolin R) 0 unit SC ACHS [facility] PRN Reason: Protocol Last Admin: 02/27/18 17:03 Dose: 3 unit Metformin HCl (Glucophage) 1,000 mg PO BIDCC [facility] Last Admin: 02/27/18 08:31 Dose: 1,000 mg Metoprolol Tartrate (Lopressor) 25 mg PO BIDBS [facility] Last Admin: 02/27/18 17:02 Dose: 25 mg Morphine Sulfate (Morphine) 1 mg IVP Q6H PRN PRN Reason: Pain, severe (8-10) Last Admin: 02/27/18 13:12 Dose: 1 mg Pantoprazole Sodium (Protonix Ec Tab) 40 mg PO DAILY [facility] Last Admin: 02/27/18 10:46 Dose: 40 mg Physical Exam - Head Exam Head Exam: ATRAUMATIC - Eye Exam Eye Exam: Normal appearance - ENT Exam ENT Exam: Mucous Membranes Dry - Respiratory Exam Respiratory Exam: NORMAL BREATHING PATTERN - Cardiovascular Exam Cardiovascular Exam: +S1, +S2 - GI/Abdominal Exam GI & Abdominal Exam: Normal Bowel Sounds - Extremities Exam Extremities exam: Positive for: pedal edema - Neurological Exam Neurological exam: Oriented x3 - Psychiatric Exam Psychiatric exam: Normal Affect, Normal Mood - Skin Skin Exam: Warm Results - Vital Signs Recent Vital Signs: Last Vital Signs Temp 97.7 F 02/27/18 15:48 Pulse 87 02/27/18 15:48 Resp 18 02/27/18 15:48 BP 147/87 02/27/18 17:02 Pulse Ox 97 02/27/18 15:48 - Labs Result Diagrams: 02/26/18 07:16 02/27/18 19:29 Labs: Laboratory Results - last 24 hr 02/25/18 02/26/18 02/27/18 13:57 20:52 12:29 POC Glucose (mg/dL) 274 H 295 H Fluid Source Fluid Appearance Fluid WBC Fluid RBC Fluid Tot Cell Count Fluid Neutrophils Fluid Lymphocytes Fld Monocyte/Macrophag Fluid Comment Cycl Citrul Peptide IgG 160 H 02/27/18 02/27/18 13:26 16:19 POC Glucose (mg/dL) 254 H Fluid Source Pleural/thoracentesi Fluid Appearance Sl cloudy Fluid WBC 361.0 H Fluid RBC 374.0 H Fluid Tot Cell Count 100 H Fluid Neutrophils 54.0 H Fluid Lymphocytes 43.0 H Fld Monocyte/Macrophag 3 H Fluid Comment Cycl Citrul Peptide IgG Assessment & Plan (1) Elevated tumor markers Assessment and Plan: Elevated CEA, CA125, and CA19-[address] A/P with PO+IV contrast for further evaluation Status: Chronic (2) Anemia Assessment and Plan: will check retic count, b12, folate, ferritin, FOBT to further characterize Thank you for this interesting consult. Status: Acute
[2018-02-27 19:55] LABS: URINE CREATININE 98.6 mg/dL
[2018-02-27 20:07] LABS: U CREAT 24HOUR URINE 1090.1 mg/24hr (800-2800); URINE CREATININE 96.9 mg/dL
[2018-02-27 20:19] LABS: URINE 24 HOUR TOTAL PROTEIN 6457.5 mg/24hr (42-225)
[2018-02-27 20:29] LABS: SQUAMOUS EPITHIAL 7 /hpf (0-5); URINE BACTERIA RARE (<OCC); URINE BILIRUBIN NEGATIVE (NEGATIVE); URINE BLOOD 1+ (NEGATIVE); URINE CALCIUM OXALATE CRYSTALS OCC /hpf (<OCC); URINE CLARITY Hazy (Clear); URINE COLOR Yellow (YELLOW); URINE GLUCOSE (UA) 3+ mg/dL (Normal); URINE LEUKOCYTE ESTERASE 3+ Leu/uL (Negative); URINE PROTEIN 2+ mg/dL (NEGATIVE); URINE UROBILINOGEN NORMAL mg/dL (0.2-1.0); WBC CLUMPS MOD /hpf
[2018-02-27] MEDS: Fluconazole IV 100mg/50 ml NS 50 ML IVPB SCH (22:03)
--- NOTE | 2018-02-28 01:18 | PN ---
DATE: 02/27/2018 SUBJECTIVE: The patient was seen and examined at bedside. This morning, the patient is slightly anxious. Denies any new complaints. PHYSICAL EXAMINATION: GENERAL: A middle-aged female, lying in bed, in no acute distress. VITAL SIGNS: Blood pressure 108/56, pulse 95, respirations 20, temperature 98 degrees Fahrenheit, O2 sat is 97% on room air. HEENT: Pupils are equal, reacting to light and accommodation. Extraocular muscles are intact. No icterus. No pallor. No oral thrush. No oropharyngeal congestion. NECK: Supple. No JVD. LUNGS: Bilateral vesicular breath sounds. Bilateral basal crackles heard. CVS: S1 and S2 present, regular. ABDOMEN: Soft, nontender. Bowel sounds are present. No guarding. No rigidity. No rebound tenderness noted. 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 No focal deficits noted. EXTREMITIES: Right foot with a splint in place. 2+ edema. MEDICATIONS: Include Maalox as needed, azithromycin 500 mg IV daily, Rocephin 1 g daily, Colace, Lasix 40 mg IV push daily, Neurontin 1600 mg p.o. b.i.d., metformin 1000 mg p.o. b.i.d., metoprolol 25 mg p.o. b.i.d., morphine 1 mg as needed for pain, Protonix 40 mg p.o. daily. LABORATORY DATA: Accu-Chek from this morning, 253, 242, 274, 295. 24-hour urine collection in progress. Urine culture shows yeast species. Blood cultures so far negative. ASSESSMENT AND PLAN: A middle-aged female with history of diabetes mellitus, hepatitis C antibody positive and viral load negative, prior admission for pancreatitis and biliary ductal obstruction on liver biopsy, admitted for status post fall with right foot fracture, right lower lobe infiltrate, bilateral pleural effusions, lower extremity edema with ascites, elevated tumor markers, status post hyperkalemia. Podiatry followup is appreciated. A cast is in place. I will continue with pain management. Continue with PT, OT as per Podiatry. Continue with Lasix for thoracentesis today. Continue with other current therapy. Follow up with pleural fluid results. We will continue with GI and DVT prophylaxis. Cesar Lowery MD [facility] # [phone]
[2018-02-28] MEDS: (Novolin R) Insulin Human Regular 100 units/ml vial SC SCH ×4 (07:50→21:53)
--- NOTE | 2018-02-28 09:14 | CP.PCM.PN ---
<Edilberto Sigala - Last Filed: 02/28/18 14:18> Subjective - Date & Time of Evaluation Date of Evaluation: 02/28/18 Time of Evaluation: 09:45 - Subjective Subjective: Pulm Progress Note- Dr. Keita's service Patient seen and examined in no apparent acute distress. Patient states that she is breathing better. She inquired about her treatment course thus far. She would like to see her family soon. Objective - Vital Signs/Intake and Output Vital Signs (last 24 hours): Temp Pulse Resp BP Pulse Ox 98.3 F 89 20 134/81 97 02/28/18 08:34 02/28/18 08:34 02/28/18 08:34 02/28/18 08:34 02/28/18 08:34 Intake and Output: 02/28/18 02/28/18 06:59 18:59 Intake Total 300 Balance 300 - Medications Medications: Current Medications Al Hydrox/Mg Hydrox/Simethicone (Maalox Plus 30 Ml) 30 ml PO Q8H PRN PRN Reason: Indigestion / Heartburn Dextrose (Dextrose 50% Inj) 0 ml IV STAT PRN; Protocol PRN Reason: Hypoglycemia Protocol Dextrose (Glutose 15) 0 gm PO ONCE PRN; Protocol PRN Reason: Hypoglycemia Protocol Docusate Sodium (Colace) 100 mg PO DAILY [facility] Last Admin: 02/27/18 10:45 Dose: Not Given Furosemide (Lasix) 40 mg IVP DAILY [facility] Last Admin: 02/27/18 11:00 Dose: 40 mg Gabapentin (Neurontin) 1,600 mg PO BID [facility] Last Admin: 02/27/18 17:12 Dose: 1,600 mg Azithromycin 500 mg/ Sodium (Chloride) 250 mls @ 250 mls/hr IVPB DAILY [facility] PRN Reason: Protocol Last Admin: 02/27/18 11:05 Dose: 250 mls/hr Ceftriaxone Sodium 1 gm/ (Sodium Chloride) 100 mls @ 100 mls/hr IVPB DAILY [facility] PRN Reason: Protocol Last Admin: 02/27/18 10:49 Dose: 100 mls/hr Fluconazole (Diflucan Iv 100 Mg/50 Ml Ns) 50 mls @ 100 mls/hr IVPB Q24H [facility] Last Admin: 02/27/18 22:03 Dose: 100 mls/hr Insulin Human Regular (Novolin R) 0 unit SC ACHS [facility] PRN Reason: Protocol Last Admin: 02/28/18 07:50 Dose: 2 unit Metformin HCl (Glucophage) 1,000 mg PO BIDCC [facility] Last Admin: 02/28/18 07:31 Dose: 1,000 mg Metoprolol Tartrate (Lopressor) 25 mg PO BIDBS [facility] Last Admin: 02/28/18 07:36 Dose: 25 mg Morphine Sulfate (Morphine) 1 mg IVP Q6H PRN PRN Reason: Pain, severe (8-10) Last Admin: 02/27/18 22:47 Dose: 1 mg Pantoprazole Sodium (Protonix Ec Tab) 40 mg PO DAILY [facility] Last Admin: 02/27/18 10:46 Dose: 40 mg - Labs Labs: 02/26/18 07:16 02/27/18 19:29 PT 10.2 SECONDS (9.7-12.2) 02/23/18 16:33 INR 0.9 02/23/18 16:33 APTT 31 SECONDS (21-34) 02/23/18 16:33 - Constitutional Appears: Non-toxic, No Acute Distress - Head Exam Head Exam: ATRAUMATIC, NORMAL INSPECTION - Eye Exam Eye Exam: EOMI, Normal appearance, PERRL Pupil Exam: NORMAL ACCOMODATION - ENT Exam ENT Exam: Mucous Membranes Moist - Respiratory Exam Respiratory Exam: absent: Wheezes - Cardiovascular Exam Cardiovascular Exam: +S1, +S2 - Extremities Exam Additional comments: dec ROM of right lower extremity - Psychiatric Exam Psychiatric exam: Normal Affect, Normal Mood - Skin Skin Exam: Dry, Normal Color, Warm Assessment and Plan (1) Pleural effusion Status: Resolved (2) Dyspnea Status: Acute (3) Asthma Status: Chronic (4) Elevated tumor markers Status: Chronic (5) Tobacco use Status: Chronic - Assessment and Plan (Free Text) Assessment: Pleural effusion Assessment & Plan: Noted on CT imaging 02/23 600 cc of clear fluid removed. F/U fluid studies Lasix Status: Acute Dyspnea Assessment & Plan: On admission, patient with complaints of dyspnea. Likely secondary to initial presenting pleural effusion. Concerns for possible pneumonia as well. Started on Azithromycin and Ceftriaxone 6/ Duonebs PRN Status: Acute Abnormal Urine studies Assessment & Plan: Follow up Nephrology recommendations Patient may benefit from renal ultrasound imaging Status: Acute Elevated tumor markers Assessment & Plan: CEA, CA 19-9, CA 125 elevated Heme Onc on the case. Recommendations for CT imaging of the abdomen and pelvis. Discussed with primary- further workup in light of history of ovarian mass Status: Chronic Asthma Assessment & Plan: Duonebs PRN Smoking cessation warranted Status: Chronic Tobacco use Assessment & Plan: Smoking cessation Status: Chronic <BossmanRogelio S - Last Filed: 02/28/18 17:47> Objective - Vital Signs/Intake and Output Vital Signs (last 24 hours): Temp Pulse Resp BP Pulse Ox 98.1 F 88 18 163/82 H 97 02/28/18 16:30 02/28/18 16:30 02/28/18 16:30 02/28/18 17:38 02/28/18 16:30 Intake and Output: 02/28/18 02/28/18 06:59 18:59 Intake Total 300 Balance 300 - Medications Medications: Current Medications Al Hydrox/Mg Hydrox/Simethicone (Maalox Plus 30 Ml) 30 ml PO Q8H PRN PRN Reason: Indigestion / Heartburn Dextrose (Dextrose 50% Inj) 0 ml IV STAT PRN; Protocol PRN Reason: Hypoglycemia Protocol Dextrose (Glutose 15) 0 gm PO ONCE PRN; Protocol PRN Reason: Hypoglycemia Protocol Docusate Sodium (Colace) 100 mg PO DAILY [facility] Last Admin: 02/28/18 10:17 Dose: Not Given Furosemide (Lasix) 40 mg IVP DAILY [facility] Last Admin: 02/28/18 10:15 Dose: 40 mg Gabapentin (Neurontin) 1,600 mg PO BID [facility] Last Admin: 02/28/18 17:39 Dose: 1,600 mg Azithromycin 500 mg/ Sodium (Chloride) 250 mls @ 250 mls/hr IVPB DAILY [facility] PRN Reason: Protocol Last Admin: 02/28/18 10:08 Dose: 250 mls/hr Ceftriaxone Sodium 1 gm/ (Sodium Chloride) 100 mls @ 100 mls/hr IVPB DAILY [facility] PRN Reason: Protocol Last Admin: 02/28/18 10:00 Dose: 100 mls/hr Fluconazole (Diflucan Iv 100 Mg/50 Ml Ns) 50 mls @ 100 mls/hr IVPB Q24H [facility] Last Admin: 02/27/18 22:03 Dose: 100 mls/hr Insulin Human Regular (Novolin R) 0 unit SC ACHS [facility] PRN Reason: Protocol Last Admin: 02/28/18 17:39 Dose: 3 unit Metformin HCl (Glucophage) 1,000 mg PO BIDCC [facility] Last Admin: 02/28/18 07:31 Dose: 1,000 mg Metoprolol Tartrate (Lopressor) 25 mg PO BIDBS [facility] Last Admin: 02/28/18 17:38 Dose: 25 mg Morphine Sulfate (Morphine) 1 mg IVP Q6H PRN PRN Reason: Pain, severe (8-10) Last Admin: 02/27/18 22:47 Dose: 1 mg Pantoprazole Sodium (Protonix Ec Tab) 40 mg PO DAILY [facility] Last Admin: 02/28/18 10:06 Dose: 40 mg - Labs Labs: 02/26/18 07:16 02/27/18 19:29 PT 10.2 SECONDS (9.7-12.2) 02/23/18 16:33 INR 0.9 02/23/18 16:33 APTT 31 SECONDS (21-34) 02/23/18 16:33 Attending/Attestation - Attestation I have personally seen and examined this patient.: Yes I have fully participated in the care of the patient.: Yes I have reviewed all pertinent clinical information, including history, physical exam and plan: Yes Notes (Text): 02/28/18 17:43 patient seen and examined. awaiting for fluid analysis result continue antibiotics Case discussed with PMD Possible renal biopsy
[2018-02-28] MEDS ORDERED: Fluconazole IV 200mg/100 ml NS 100 MG in Premixed IV 1 EA IVPB SCH (10:00)
[2018-02-28] MEDS: Pantoprazole 40 mg EC Tab PO SCH (10:06)
[2018-02-28] MEDS: Azithromycin 500 MG in Sodium Chloride 0.9% 250 ML IVPB SCH (10:08)
--- NOTE | 2018-02-28 11:27 | CP.PCM.PN ---
Subjective - Date & Time of Evaluation Date of Evaluation: 02/28/18 Time of Evaluation: 11:15 - Subjective Subjective: Progress note is dictated #[id number] Objective - Vital Signs/Intake and Output Vital Signs (last 24 hours): Temp Pulse Resp BP Pulse Ox 98.3 F 89 20 135/80 97 02/28/18 08:34 02/28/18 08:34 02/28/18 08:34 02/28/18 10:15 02/28/18 08:34 Intake and Output: 02/28/18 02/28/18 06:59 18:59 Intake Total 300 Balance 300 - Medications Medications: Current Medications Al Hydrox/Mg Hydrox/Simethicone (Maalox Plus 30 Ml) 30 ml PO Q8H PRN PRN Reason: Indigestion / Heartburn Dextrose (Dextrose 50% Inj) 0 ml IV STAT PRN; Protocol PRN Reason: Hypoglycemia Protocol Dextrose (Glutose 15) 0 gm PO ONCE PRN; Protocol PRN Reason: Hypoglycemia Protocol Docusate Sodium (Colace) 100 mg PO DAILY [facility] Last Admin: 02/28/18 10:17 Dose: Not Given Furosemide (Lasix) 40 mg IVP DAILY [facility] Last Admin: 02/28/18 10:15 Dose: 40 mg Gabapentin (Neurontin) 1,600 mg PO BID [facility] Last Admin: 02/28/18 10:06 Dose: 1,600 mg Azithromycin 500 mg/ Sodium (Chloride) 250 mls @ 250 mls/hr IVPB DAILY [facility] PRN Reason: Protocol Last Admin: 02/28/18 10:08 Dose: 250 mls/hr Ceftriaxone Sodium 1 gm/ (Sodium Chloride) 100 mls @ 100 mls/hr IVPB DAILY [facility] PRN Reason: Protocol Last Admin: 02/28/18 10:00 Dose: 100 mls/hr Fluconazole (Diflucan Iv 100 Mg/50 Ml Ns) 50 mls @ 100 mls/hr IVPB Q24H [facility] Last Admin: 02/27/18 22:03 Dose: 100 mls/hr Insulin Human Regular (Novolin R) 0 unit SC ACHS [facility] PRN Reason: Protocol Last Admin: 02/28/18 07:50 Dose: 2 unit Metformin HCl (Glucophage) 1,000 mg PO BIDCC [facility] Last Admin: 02/28/18 07:31 Dose: 1,000 mg Metoprolol Tartrate (Lopressor) 25 mg PO BIDBS [facility] Last Admin: 02/28/18 07:36 Dose: 25 mg Morphine Sulfate (Morphine) 1 mg IVP Q6H PRN PRN Reason: Pain, severe (8-10) Last Admin: 02/27/18 22:47 Dose: 1 mg Pantoprazole Sodium (Protonix Ec Tab) 40 mg PO DAILY [facility] Last Admin: 02/28/18 10:06 Dose: 40 mg - Labs Labs: 02/26/18 07:16 02/27/18 19:29 PT 10.2 SECONDS (9.7-12.2) 02/23/18 16:33 INR 0.9 02/23/18 16:33 APTT 31 SECONDS (21-34) 02/23/18 16:33
[2018-02-28 14:12] LABS: COMPLEMENT C4 9.6 mg/dL (14.0-44.0)
[2018-02-28] MEDS ORDERED: Iohexol 240 (50 ml) PO ONE (15:45)
[2018-02-28] MEDS ORDERED: Iodixanol 320 MG/ML 100 ML BOTTLE IV ONE (17:05)
--- NOTE | 2018-02-28 18:45 | CT ---
PROCEDURE: CT Abdomen and Pelvis with contrast HISTORY: elevated tumor markers ?malignancy COMPARISON: 12/19/2017 TECHNIQUE: Contrast dose: 100 cc of Visipaque Radiation dose: Total exam DLP = 1111 mGy-cm. This CT exam was performed using one or more of the following dose reduction techniques: Automated exposure control, adjustment of the mA and/or kV according to patient size, and/or use of iterative reconstruction technique. FINDINGS: LOWER THORAX: Small bilateral pleural effusions and bibasilar atelectasis LIVER: There is a small amount of ascites around the liver. There is some pneumobilia. The gallbladder is removed GALLBLADDER AND BILE DUCTS: Removed PANCREAS: Unremarkable. No gross lesion or ductal dilatation. SPLEEN: Unremarkable. ADRENALS: Unremarkable. No mass. KIDNEYS AND URETERS: Unremarkable. No hydronephrosis. No solid mass. VASCULATURE: Unremarkable. No aortic aneurysm. BOWEL: Unremarkable. No obstruction. No gross mural thickening. APPENDIX: Normal appendix. PERITONEUM: Unremarkable. No free fluid. No free air. LYMPH NODES: Unremarkable. No enlarged lymph nodes. BLADDER: Unremarkable. REPRODUCTIVE: There is a large fatty mass in the pelvis consistent with a dermoid. This measures 12.2 cm wide by 9.5 cm AP and 9 cm in height. BONES: No acute fracture. OTHER FINDINGS: None. IMPRESSION: Large pelvic dermoid. The study is otherwise unremarkable
--- NOTE | 2018-02-28 19:09 | CP.PCM.CON ---
History of Present Illness - History of Present Illness History of Present Illness: pt is seen and examined, full consult is dictated #[id number] 1. nephrotic range proteinutia 2. anasarca 3. dm retinopathy 4. s/p fall fx rt navicular and cuniform 5. large dermoid cyst in ? ovary 6. r/o dm nephropathy vs chronic gn check upep, spep, ds.-dns ab, vargas ab, repeat random up/cr ration [facility] with diflucan may need f/u with assisted living home director Past Patient History - Past Medical History & Family History Past Medical History?: Yes - Past Social History Smoking Status: Light Smoker < 10 Cigarettes Daily - CARDIAC Hx Congestive Heart Failure: Yes - PULMONARY Hx Asthma: Yes - NEUROLOGICAL Hx Neurological Disorder: Yes (NEURPOATHTY) Hx Dizziness: Yes - HEENT Hx HEENT Problems: Yes (HX RETINA BLEEDING) Other/Comment: sclera both eye slightly jaundice - RENAL Hx Chronic Kidney Disease: No - ENDOCRINE/METABOLIC Hx Endocrine Disorders: Yes Hx Diabetes Mellitus Type 2: Yes - HEMATOLOGICAL/ONCOLOGICAL Hx Hepatitis C: Yes - INTEGUMENTARY Hx Dermatological Problems: Yes (SLIGHT JAUNDICE) Other/Comment: sclera both eye slightly jaundice - MUSCULOSKELETAL/RHEUMATOLOGICAL Hx Falls: Yes - GASTROINTESTINAL Hx Gall Bladder Disease: Yes Hx Pancreatitis: Yes - GENITOURINARY/GYNECOLOGICAL Hx Genitourinary Disorders: No Other/Comment: fibroids - PSYCHIATRIC Hx Substance Use: No - SURGICAL HISTORY Hx Cholecystectomy: Yes - ANESTHESIA Hx Anesthesia: Yes Hx Anesthesia Reactions: No Hx Malignant Hyperthermia: No Has any member of the family had a problem w/ anesthesia?: No Meds Allergies/Adverse Reactions: Allergies Allergy/AdvReac Type Severity Reaction Status Date / Time hydromorphone [From Dilaudid] Allergy SHORTNESS Verified 02/23/18 14:49 OF BREATH lidocaine Allergy Verified 02/23/18 14:49 - Medications Medications: Current Medications Al Hydrox/Mg Hydrox/Simethicone (Maalox Plus 30 Ml) 30 ml PO Q8H PRN PRN Reason: Indigestion / Heartburn Dextrose (Dextrose 50% Inj) 0 ml IV STAT PRN; Protocol PRN Reason: Hypoglycemia Protocol Dextrose (Glutose 15) 0 gm PO ONCE PRN; Protocol PRN Reason: Hypoglycemia Protocol Docusate Sodium (Colace) 100 mg PO DAILY [facility] Last Admin: 02/28/18 10:17 Dose: Not Given Furosemide (Lasix) 40 mg IVP DAILY [facility] Last Admin: 02/28/18 10:15 Dose: 40 mg Gabapentin (Neurontin) 1,600 mg PO BID [facility] Last Admin: 02/28/18 17:39 Dose: 1,600 mg Azithromycin 500 mg/ Sodium (Chloride) 250 mls @ 250 mls/hr IVPB DAILY [facility] PRN Reason: Protocol Last Admin: 02/28/18 10:08 Dose: 250 mls/hr Ceftriaxone Sodium 1 gm/ (Sodium Chloride) 100 mls @ 100 mls/hr IVPB DAILY [facility] PRN Reason: Protocol Last Admin: 02/28/18 10:00 Dose: 100 mls/hr Fluconazole (Diflucan Iv 100 Mg/50 Ml Ns) 50 mls @ 100 mls/hr IVPB Q24H [facility] Last Admin: 02/27/18 22:03 Dose: 100 mls/hr Insulin Human Regular (Novolin R) 0 unit SC ACHS [facility] PRN Reason: Protocol Last Admin: 02/28/18 17:39 Dose: 3 unit Metformin HCl (Glucophage) 1,000 mg PO BIDCC [facility] Last Admin: 02/28/18 07:31 Dose: 1,000 mg Metoprolol Tartrate (Lopressor) 25 mg PO BIDBS [facility] Last Admin: 02/28/18 17:38 Dose: 25 mg Morphine Sulfate (Morphine) 1 mg IVP Q6H PRN PRN Reason: Pain, severe (8-10) Last Admin: 02/27/18 22:47 Dose: 1 mg Pantoprazole Sodium (Protonix Ec Tab) 40 mg PO DAILY [facility] Last Admin: 02/28/18 10:06 Dose: 40 mg Results - Vital Signs Recent Vital Signs: Last Vital Signs Temp 98.1 F 02/28/18 16:30 Pulse 88 02/28/18 16:30 Resp 18 02/28/18 16:30 BP 163/82 H 02/28/18 17:38 Pulse Ox 97 02/28/18 16:30 - Labs Result Diagrams: 02/26/18 07:16 02/27/18 19:29 Labs: Laboratory Results - last 24 hr 02/27/18 02/27/18 02/27/18 19:29 19:29 20:10 Creatinine 1.0 POC Glucose (mg/dL) Urine Color Yellow Urine Clarity Hazy Urine pH 5.0 Ur Specific [place] 1.012 Urine Protein 2+ H Urine Glucose (UA) 3+ H Urine Ketones Negative Urine Blood 1+ H Urine Nitrate Negative Urine Bilirubin Negative Urine Urobilinogen Normal Ur Leukocyte Esterase 3+ H Urine WBC (Auto) 2220 H Urine RBC (Auto) 9 H Urine WBC Clumps (Auto) Mod H Ur Squamous Epith Cells 7 H Calcium Oxalate Crystal Occ H Urine Bacteria Rare Urine Yeast (Budding) Many H Urine Collection Time 24 24 Urine Total Volume 1125 1125 Ur Creatinine 24 Hour 1090.1 Creatinine Clearance 75.0 L Ur Protein 24 Hr Calc 6457.5 H Complement C3 Complement C4 02/27/18 02/28/18 02/28/18 21:02 06:40 11:37 Creatinine POC Glucose (mg/dL) 208 H 233 H 282 H Urine Color Urine Clarity Urine pH Ur Specific [place] Urine Protein Urine Glucose (UA) Urine Ketones Urine Blood Urine Nitrate Urine Bilirubin Urine Urobilinogen Ur Leukocyte Esterase Urine WBC (Auto) Urine RBC (Auto) Urine WBC Clumps (Auto) Ur Squamous Epith Cells Calcium Oxalate Crystal Urine Bacteria Urine Yeast (Budding) Urine Collection Time Urine Total Volume Ur Creatinine 24 Hour Creatinine Clearance Ur Protein 24 Hr Calc Complement C3 Complement C4 02/28/18 02/28/18 13:49 16:28 Creatinine POC Glucose (mg/dL) 272 H Urine Color Urine Clarity Urine pH Ur Specific [place] Urine Protein Urine Glucose (UA) Urine Ketones Urine Blood Urine Nitrate Urine Bilirubin Urine Urobilinogen Ur Leukocyte Esterase Urine WBC (Auto) Urine RBC (Auto) Urine WBC Clumps (Auto) Ur Squamous Epith Cells Calcium Oxalate Crystal Urine Bacteria Urine Yeast (Budding) Urine Collection Time Urine Total Volume Ur Creatinine 24 Hour Creatinine Clearance Ur Protein 24 Hr Calc Complement C3 65.0 L Complement C4 9.6 L
[2018-02-28] MEDS: Fluconazole IV 100mg/50 ml NS 50 ML IVPB SCH (21:52)
[2018-02-28] MEDS: Morphine 4 MG/ML VIAL IVP PRN (21:59)
--- NOTE | 2018-03-01 02:01 | PN ---
DATE: SUBJECTIVE: The patient was seen and examined at bedside. The patient was more anxious and nervous. Denies any complains of headache and dizziness. Denies any chest pain, shortness of breath, or wheezing. Denies any nausea, vomiting, or abdominal pain. Had loose bowel movement yesterday. Denied any other neurologic symptoms with complaining of right foot pain. PHYSICAL EXAMINATION: GENERAL: Middle aged female, lying in bed, in no acute distress. VITAL SIGNS: Blood pressure 134/81, pulse 89, respirations 20, temperature 98.3 degrees Fahrenheit, O2 sat is 97% on room air. HEENT: Pupils are equal, round, and reacting to light and accommodation. Extraocular muscles are intact. No icterus. No pallor. No oral thrush. No oropharyngeal congestion. NECK: Supple. No JVD. LUNGS: Bilateral vesicular breath sounds. Bilateral basal crackles are heard. CVS: S1 and S2 present, regular. ABDOMEN: Soft, nontender. Bowel sounds are present. No guarding. No rigidity. No rebound tenderness noted. STRESS TEST TECHNICIAN: Alert, awake, and oriented x3. No focal deficits noted. EXTREMITIES: Right foot with cast in place and 2+ edema. MEDICATIONS: Include Maalox as needed, Zithromax 500 mg daily, Rocephin 1 gm daily, Colace 100 mg daily, Diflucan 100 mg IV daily, Lasix 40 mg IV push b.i.d., Neurontin 1600 mg p.o. b.i.d., metoprolol 25 mg p.o. b.i.d., morphine 1 mg IV push every 6, metformin 1000 mg p.o. b.i.d., and Protonix 40 mg daily. LABORATORY DATA: Labs today, glucose 208, 233, 282, 272. C3 low, C4 low with C3 at 65 and C4 at 9.6. FABIEN positive with 1:160, homogenous pattern. CCP IgG is negative at 160; 24-hour urine consistent with 6457 mg with creatinine clearance of 75 mL. Beta-hCG is negative. CT scan of the abdomen and pelvis are done this afternoon. Last studies otherwise unremarkable. ASSESSMENT AND PLAN: Middle aged female with history of diabetes mellitus, fibromyalgia, restless leg syndrome, carpal tunnel syndrome, recent admission for acute pancreatitis, and liver biopsy consistent with acute biliary ductal obstruction. Readmitted to the hospital for lower extremity edema, ascites, and bilateral pleural effusion and right lower lobe infiltrate, status post fall with right foot fracture with elevated tumor markers; 24-hour urine collection showing massive proteinuria, FABIEN positive with C3 and C4 low, pending anti-double stranded DNA and Garcia antibody levels, yeast in the urine. We will continue with current medication. Lasix increased to 40 b.i.d. We will repeat urine culture. Continue with Diflucan for yeast in the urine. Followup with pending labs. We will obtain renal consult for massive proteinuria and for FABIEN positive. Continue with other current medications. Her lower extremity edema is decreasing. Cesar Lowery MD
[2018-03-01 07:49] LABS: CHOLESTEROL PLEURAL FLUID 20 mg/dL; LDH PLEURAL FLUID 96 U/L; TOTAL PROTEIN PLEURAL FLUID <3.0 g/dL; TRIGLYCERIDES PLEURAL FLUID 14 mg/dL
[2018-03-01] MEDS: (Novolin R) Insulin Human Regular 100 units/ml vial SC SCH ×4 (08:38→21:28)
[2018-03-01] MEDS: Morphine 4 MG/ML VIAL IVP PRN (08:39)
[2018-03-01 08:55] LABS: HEPATITIS B SURFACE AG Negative (NEGATIVE)
[2018-03-01 09:01] LABS: HEPATITIS A IGM NEGATIVE (NEGATIVE); HEPATITIS B CORE AB NEGATIVE (NEGATIVE)
--- NOTE | 2018-03-01 09:14 | CP.PCM.PN ---
Subjective - Date & Time of Evaluation Date of Evaluation: 03/01/18 Time of Evaluation: 09:12 - Subjective Subjective: pt is seen and examined, follow up consult is dictated #[id number] check sm ab, ds-dna ab, repeat u pro/cr ratio, upep. spep repeat u/a after terating uti c/w lasix 40 mg iv bid Objective - Vital Signs/Intake and Output Vital Signs (last 24 hours): Temp Pulse Resp BP Pulse Ox 98.5 F 86 20 123/75 96 03/01/18 08:29 03/01/18 08:29 03/01/18 08:29 03/01/18 08:29 03/01/18 08:29 Intake and Output: 03/01/18 03/01/18 06:59 18:59 Intake Total 0 Balance 0 - Medications Medications: Current Medications Al Hydrox/Mg Hydrox/Simethicone (Maalox Plus 30 Ml) 30 ml PO Q8H PRN PRN Reason: Indigestion / Heartburn Dextrose (Dextrose 50% Inj) 0 ml IV STAT PRN; Protocol PRN Reason: Hypoglycemia Protocol Dextrose (Glutose 15) 0 gm PO ONCE PRN; Protocol PRN Reason: Hypoglycemia Protocol Docusate Sodium (Colace) 100 mg PO DAILY [facility] Last Admin: 02/28/18 10:17 Dose: Not Given Furosemide (Lasix) 40 mg IVP BID [facility] Gabapentin (Neurontin) 1,600 mg PO BID [facility] Last Admin: 02/28/18 17:39 Dose: 1,600 mg Azithromycin 500 mg/ Sodium (Chloride) 250 mls @ 250 mls/hr IVPB DAILY [facility] PRN Reason: Protocol Last Admin: 02/28/18 10:08 Dose: 250 mls/hr Ceftriaxone Sodium 1 gm/ (Sodium Chloride) 100 mls @ 100 mls/hr IVPB DAILY [facility] PRN Reason: Protocol Last Admin: 02/28/18 10:00 Dose: 100 mls/hr Fluconazole (Diflucan Iv 100 Mg/50 Ml Ns) 50 mls @ 100 mls/hr IVPB Q24H [facility] Last Admin: 02/28/18 21:52 Dose: 100 mls/hr Insulin Human Regular (Novolin R) 0 unit SC ACHS [facility] PRN Reason: Protocol Last Admin: 03/01/18 08:38 Dose: 1 unit Metformin HCl (Glucophage) 1,000 mg PO BIDCC [facility] Last Admin: 02/28/18 17:00 Dose: Not Given Metoprolol Tartrate (Lopressor) 25 mg PO BIDBS [facility] Last Admin: 03/01/18 06:48 Dose: 25 mg Morphine Sulfate (Morphine) 1 mg IVP Q6H PRN PRN Reason: Pain, severe (8-10) Last Admin: 03/01/18 08:39 Dose: 1 mg Pantoprazole Sodium (Protonix Ec Tab) 40 mg PO DAILY [facility] Last Admin: 02/28/18 10:06 Dose: 40 mg - Labs Labs: 02/26/18 07:16 02/27/18 19:29 PT 10.2 SECONDS (9.7-12.2) 02/23/18 16:33 INR 0.9 02/23/18 16:33 APTT 31 SECONDS (21-34) 02/23/18 16:33
[2018-03-01] MEDS: Pantoprazole 40 mg EC Tab PO SCH (09:22)
--- NOTE | 2018-03-01 10:15 | CON ---
DATE: 02/28/2018 RENAL CONSULTATION LOCATION: The patient is located in room 669, bed B. REQUESTED BY: Cesar Lowery MD REASON FOR RENAL CONSULTATION: Proteinuria, for further evaluation. HISTORY OF PRESENT ILLNESS: Mrs. Schroeder is a 48-year-old middle-aged female with past medical history significant for diabetes for 18 years, fibromyalgia, restless leg syndrome, carpal tunnel syndrome, and multiple surgeries, fibroid tumor removal from the ovary, gallbladder surgery, and status post liver biopsy recently, status post multiple falls who recently had a fall. As per the patient, initially presented to the emergency room with acute pain and x-ray of the foot was found to have acute nondisplaced fracture in the navicular and medial cuneiform. Signed out AMA, and the patient presented again on 02/23/2018 with complaints of right foot pain and shortness of breath and leg edema. The patient was admitted for possible CHF. Now renal consult requested for increase 24-hour urine protein more than 3 gm and for further evaluation. The patient has now cast to the right leg. The patient claims swelling is slowly improving since Lasix was started. Denies any chest pain, palpitation. Denies any nausea, vomiting, diarrhea. Denies any abdominal pain. The patient also claims that she had retinal bleed and status post laser treatment and also injection into the retina. The patient is being followed by Ophthalmology. PAST MEDICAL HISTORY: Significant for diabetes for about 18 years. Denies hypertension, denies hyperlipidemia. History of diabetic retinopathy and retinal bleed, status post laser treatment. Also past medical history includes restless leg syndrome and carpal syndrome. PAST SURGICAL HISTORY: Fibroids removed from the ovary and gallbladder surgery. ALLERGIES: ALLERGIC TO HYDROMORPHONE AND LIDOCAINE. SOCIAL HISTORY: The patient is a smoker, smokes one pack per day since when she was 22 and smoked until 1 year ago one pack per day for about 26-pack years, and now she smokes two to three cigarettes per day. Denies alcohol abuse. Denies drug abuse. PERSONAL HISTORY: She is single, and she has four children. FAMILY HISTORY: Father alive, mother alive, both have diabetes, and she also has 2 brothers and 2 sisters, and one brother has diabetes and her daughter is also diagnosed with diabetes. MEDICATIONS: Her current medications include as follows, azithromycin 250 mg IV piggyback daily, Rocephin 1 gm daily, Colace 100 mg p.o. daily, fluconazole 100 mg IV daily, metformin 1000 mg p.o. b.i.d. on hold, Lasix 40 mg IV b.i.d., Lopressor 25 mg p.o. b.i.d., Maalox 30 mL p.o. every 8 hours p.r.n., morphine 1 mg IV every 6 hours p.r.n., Neurontin 1600 mg p.o. b.i.d., Novolin R for sliding scale, and Protonix 40 mg p.o. daily. REVIEW OF SYSTEMS: Significant for status post fall and nondisplaced fracture of the navicular and cuneiform bone on the right side and bilateral leg swelling and shortness of breath. All other review of systems are reviewed and are negative. PHYSICAL EXAMINATION: VITAL SIGNS: As follows: Blood pressure this evening 163/82, pulse 88, respirations 18, temperature 98.1, saturation 97%. Height 5 feet 3 inches and weight is 178 pounds. GENERAL: Mrs. Schroeder is a 48-year-old middle-aged female, moderately built, moderately nourished, not in acute distress. HEENT: Pupils normal and reactive to light and accommodation. Conjunctivae pink. Sclerae anicteric. Tongue is moist, and trachea is midline. LUNGS: Symmetric on both sides. Bilateral breath sounds present. Occasional basal crackles present. CVS: Rosebud at the fifth intercostal space, midclavicular line. S1, S2 audible. No murmur or gallop. ABDOMEN: Normal in appearance, soft, tympanic. No guarding. No rigidity. No hepatosplenomegaly. PUDDLER PILE DRIVING: The patient is alert, awake, and oriented x3. Nonfocal neuro examination. Cranial nerves II through XII grossly intact. Sensory and motor system is within normal limits. EXTREMITIES: No cyanosis, no clubbing. The patient has 2+ edema in both lower extremities. The patient also has a cast to the right leg. LABORATORY DATA: Include as follows: Accu-cheks today 233, 282, 272, 216. Complement level, C3 is 65 and C4 is on 9.6. Urinalysis as of 02/27/2018, yellow, hazy, pH 5, specific gravity 1.012. protein 2+, glucose 3+, ketones negative, blood 1+, nitrites negative, bili negative, urobilinogen normal, leukocyte esterase 3+, wbc 2220, RBC 9, and WBC clumps moderate and bacteria rare and yeast many and 24-hour urine volume is 1125 and creatinine is 1090.1 mg and creatinine clearance is 75 mL/minute, and 24-hour urine protein is 6457.5 mg which is 6.457 gm in 24 hours. Repeat urinalysis as of 02/26/2018, devorah, hazy, pH 5, specific 1.024, protein 3+, glucose 2+, ketones negative, blood 1+, nitrites negative, bili negative, urobilinogen normal, leukocyte esterase 3+, wbc 840, rbc 23, wbc clumps occasional, calcium oxalate crystal occasional, urine bacteria few, hyaline cast 20, yeast many. WBC 7.4, hemoglobin 10.6, hematocrit 31.2, platelets 225. Sodium 140, potassium 4.3, chloride 108, CO2 of 27, BUN 30, creatinine 1, glucose 220, and calcium 7.7, total bili 0.1, AST 40, ALT 20, alkaline phosphatase 244, total protein 5.5, albumin is 2.1; and urine beta hCG negative and urine drug screen is negative, and pleural fluid as of 02/27/2018, slight cloudy, wbc 361, rbc 374, cell count 100, neutrophils 54, macros 3. Other laboratory data, CCP IgG levels of 160, rheumatoid arthritis negative and FABIEN is positive 1:160 homogeneous and ANCA is pending, C3 of 65 and C4 of 9.6. Urine Legionella antigen negative and mycoplasma and serum antibody negative, and ASO titers are negative. And alcohol level as of 02/23/2018 is less than 10. ESR as of 02/25/2018 is 68. As of 02/23/2018, WBC 9.6, hemoglobin 12.2, hematocrit is 35.7, platelets 198. PT 10.2, PTT 31, D-dimer 568. Sodium 136, potassium 5.6, chloride 107, CO2 of 23, BUN 25, creatinine 0.7, glucose 281, calcium 7.9, total bili 0.9, AST 61, ALT 36, alkaline phosphatase 350. Troponin 0.012, 0.012, and 0.012. ProBNP 393 and total protein 6.5, albumin is 2.6. Other laboratory data, alpha-fetoprotein level is 1.8, CEA is 13.3, CA 19-9 is 369, and CA-125 is 117 and TSH is 3.1, and hemoglobin A1c is 7.9. CT of the abdomen and pelvis as of 02/28/2018, large pelvic dermoid. There is a large fatty mass in the pelvis consistent with dermoid. This measures 12.2 cm wide and 9.4 cm AP and 9 cm in height. The large pelvic dermoid studies are, otherwise, unremarkable. Kidneys unremarkable, no hydronephrosis, and no solid mass. Adrenals remarkable. Spleen is unremarkable. Pancreas unremarkable. No gross lesion or ductal dilatation. Gallbladder and bile ducts removed. In the liver, there is a small amount of ascites around the liver. There is some pneumobilia, gallbladder is removed. Small bilateral pleural effusions, bibasilar atelectasis. The echocardiogram as of 02/23/2018, impression, the left ventricular systolic function is normal and the ejection fraction is 60% to 65%. Left ventricular diastolic function is normal and mitral regurgitation is trace. There are no echocardiographic indication of cardiac tamponade. There is small circumferential pericardial effusion. IMPRESSION: In summary, Mrs. Schroeder is a 48-year-old, middle-aged female with a history of diabetes for about 18 years, diabetic retinopathy with retinal bleed, status post laser treatment, history of questionable fibroid tumor removal from the ovary in the past, now with large dermoid cyst in the ovary with bilateral leg swelling, status post fall with fracture of the ankle, navicular and cuneiform bone nondisplaced on the right side who was admitted with shortness of breath and swelling of the legs, and urinalysis consistent with yeast positive and also 24-hour urine protein more than 6 gm and C3-C4 is low, and FABIEN is 1:160 homogeneous pattern. 1. Nephrotic range proteinuria, most likely secondary to diabetic nephropathy in view of diabetes more than 18 years and also history of diabetic retinopathy and retinal bleed, status post laser treatment, most likely proteinuria, is diabetic nephropathy. 2. Bilateral pleural effusion and edema, most likely secondary to hypoalbuminemia and diabetic nephropathy. 3. Fluid overload. 4. Status post fall with a fracture of the right navicular and cuneiform bones 4. Large dermoid cyst in the ovary. PLAN: Increase Lasix to 40 mg IV every 12 hours until the swelling improves and also follow up with Hematology/Oncology for elevated tumor markers and also follow up with pulmonary for pleural effusion. Check Garcia antibody, double-strand DNA antibody, and UPEP and SPEP. If patient is interested, may need a kidney biopsy to rule out glomerulonephritis versus ascites versus diabetic nephropathy. We will follow with you. Thank you for allowing me to participate in your patient's care. Also check double-stranded DNA and PNEUMATIC SYSTEMS OPERATOR titers. We will also check urine protein and creatinine ratio, random urine. Thad Lowery MD MTDD
[2018-03-01 10:26] LABS: HEPATITIS C ANTIBODY REACTIVE (NEGATIVE)
[2018-03-01] MEDS: Azithromycin 500 MG in Sodium Chloride 0.9% 250 ML IVPB SCH (10:30)
--- NOTE | 2018-03-01 11:10 | CP.PCM.PN ---
Subjective - Date & Time of Evaluation Date of Evaluation: 03/01/18 Time of Evaluation: 10:45 - Subjective Subjective: Progress note dictated #[id number] Objective - Vital Signs/Intake and Output Vital Signs (last 24 hours): Temp Pulse Resp BP Pulse Ox 98.5 F 86 20 150/90 96 03/01/18 08:29 03/01/18 08:29 03/01/18 08:29 03/01/18 09:22 03/01/18 08:29 Intake and Output: 03/01/18 03/01/18 06:59 18:59 Intake Total 0 Balance 0 - Medications Medications: Current Medications Al Hydrox/Mg Hydrox/Simethicone (Maalox Plus 30 Ml) 30 ml PO Q8H PRN PRN Reason: Indigestion / Heartburn Dextrose (Dextrose 50% Inj) 0 ml IV STAT PRN; Protocol PRN Reason: Hypoglycemia Protocol Dextrose (Glutose 15) 0 gm PO ONCE PRN; Protocol PRN Reason: Hypoglycemia Protocol Docusate Sodium (Colace) 100 mg PO DAILY [facility] Last Admin: 03/01/18 09:22 Dose: 100 mg Furosemide (Lasix) 40 mg IVP BID [facility] Last Admin: 03/01/18 09:22 Dose: 40 mg Gabapentin (Neurontin) 1,600 mg PO BID [facility] Last Admin: 03/01/18 09:23 Dose: 1,600 mg Fluconazole (Diflucan Iv 100 Mg/50 Ml Ns) 50 mls @ 100 mls/hr IVPB Q24H [facility] Last Admin: 02/28/18 21:52 Dose: 100 mls/hr Insulin Human Regular (Novolin R) 0 unit SC ACHS [facility] PRN Reason: Protocol Last Admin: 03/01/18 08:38 Dose: 1 unit Metformin HCl (Glucophage) 1,000 mg PO BIDCC [facility] Last Admin: 02/28/18 17:00 Dose: Not Given Metoprolol Tartrate (Lopressor) 25 mg PO BIDBS [facility] Last Admin: 03/01/18 06:48 Dose: 25 mg Morphine Sulfate (Morphine) 1 mg IVP Q6H PRN PRN Reason: Pain, severe (8-10) Last Admin: 03/01/18 08:39 Dose: 1 mg Pantoprazole Sodium (Protonix Ec Tab) 40 mg PO DAILY [facility] Last Admin: 06/07/18 09:22 Dose: 40 mg - Labs Labs: 02/26/18 07:16 02/27/18 19:29 PT 10.2 SECONDS (9.7-12.2) 02/23/18 16:33 INR 0.9 02/23/18 16:33 APTT 31 SECONDS (21-34) 02/23/18 16:33
--- NOTE | 2018-03-01 12:27 | CP.PCM.PN ---
Subjective - Date & Time of Evaluation Date of Evaluation: 02/28/18 Time of Evaluation: 12:00 - Subjective Subjective: No complaints. Objective - Vital Signs/Intake and Output Vital Signs (last 24 hours): Temp Pulse Resp BP Pulse Ox 98.5 F 86 20 150/90 96 03/01/18 08:29 03/01/18 08:29 03/01/18 08:29 03/01/18 09:22 03/01/18 08:29 Intake and Output: 03/01/18 03/01/18 06:59 18:59 Intake Total 0 Balance 0 - Medications Medications: Current Medications Al Hydrox/Mg Hydrox/Simethicone (Maalox Plus 30 Ml) 30 ml PO Q8H PRN PRN Reason: Indigestion / Heartburn Dextrose (Dextrose 50% Inj) 0 ml IV STAT PRN; Protocol PRN Reason: Hypoglycemia Protocol Dextrose (Glutose 15) 0 gm PO ONCE PRN; Protocol PRN Reason: Hypoglycemia Protocol Docusate Sodium (Colace) 100 mg PO DAILY [facility] Last Admin: 03/01/18 09:22 Dose: 100 mg Furosemide (Lasix) 40 mg IVP BID [facility] Last Admin: 03/01/18 09:22 Dose: 40 mg Gabapentin (Neurontin) 1,600 mg PO BID [facility] Last Admin: 03/01/18 09:23 Dose: 1,600 mg Fluconazole (Diflucan Iv 100 Mg/50 Ml Ns) 50 mls @ 100 mls/hr IVPB Q24H [facility] Last Admin: 02/28/18 21:52 Dose: 100 mls/hr Insulin Human Regular (Novolin R) 0 unit SC ACHS [facility] PRN Reason: Protocol Last Admin: 03/01/18 12:11 Dose: 3 unit Metformin HCl (Glucophage) 1,000 mg PO BIDCC [facility] Last Admin: 02/28/18 17:00 Dose: Not Given Metoprolol Tartrate (Lopressor) 25 mg PO BIDBS [facility] Last Admin: 03/01/18 06:48 Dose: 25 mg Morphine Sulfate (Morphine) 1 mg IVP Q6H PRN PRN Reason: Pain, severe (8-10) Last Admin: 03/01/18 08:39 Dose: 1 mg Pantoprazole Sodium (Protonix Ec Tab) 40 mg PO DAILY [facility] Last Admin: 03/01/18 09:22 Dose: 40 mg - Labs Labs: 02/26/18 07:16 02/27/18 19:29 PT 10.2 SECONDS (9.7-12.2) 02/23/18 16:33 INR 0.9 02/23/18 16:33 APTT 31 SECONDS (21-34) 02/23/18 16:33 - Head Exam Head Exam: ATRAUMATIC - Eye Exam Eye Exam: Normal appearance - ENT Exam ENT Exam: Mucous Membranes Dry - Respiratory Exam Respiratory Exam: NORMAL BREATHING PATTERN - Cardiovascular Exam Cardiovascular Exam: +S1, +S2 - GI/Abdominal Exam GI & Abdominal Exam: Normal Bowel Sounds - Extremities Exam Extremities Exam: Normal Inspection Assessment and Plan (1) Elevated tumor markers Assessment & Plan: for CT A/P today Status: Chronic (2) Anemia Assessment & Plan: f/u anemia w/u Status: Acute
--- NOTE | 2018-03-01 12:29 | CP.PCM.PN ---
Subjective - Date & Time of Evaluation Date of Evaluation: 03/01/18 Time of Evaluation: 12:05 - Subjective Subjective: No complaints. Objective - Vital Signs/Intake and Output Vital Signs (last 24 hours): Temp Pulse Resp BP Pulse Ox 98.5 F 86 20 150/90 96 03/01/18 08:29 03/01/18 08:29 03/01/18 08:29 03/01/18 09:22 03/01/18 08:29 Intake and Output: 03/01/18 03/01/18 06:59 18:59 Intake Total 0 Balance 0 - Medications Medications: Current Medications Al Hydrox/Mg Hydrox/Simethicone (Maalox Plus 30 Ml) 30 ml PO Q8H PRN PRN Reason: Indigestion / Heartburn Dextrose (Dextrose 50% Inj) 0 ml IV STAT PRN; Protocol PRN Reason: Hypoglycemia Protocol Dextrose (Glutose 15) 0 gm PO ONCE PRN; Protocol PRN Reason: Hypoglycemia Protocol Docusate Sodium (Colace) 100 mg PO DAILY [facility] Last Admin: 03/01/18 09:22 Dose: 100 mg Furosemide (Lasix) 40 mg IVP BID [facility] Last Admin: 03/01/18 09:22 Dose: 40 mg Gabapentin (Neurontin) 1,600 mg PO BID [facility] Last Admin: 03/01/18 09:23 Dose: 1,600 mg Fluconazole (Diflucan Iv 100 Mg/50 Ml Ns) 50 mls @ 100 mls/hr IVPB Q24H [facility] Last Admin: 02/28/18 21:52 Dose: 100 mls/hr Insulin Human Regular (Novolin R) 0 unit SC ACHS [facility] PRN Reason: Protocol Last Admin: 03/01/18 12:11 Dose: 3 unit Metformin HCl (Glucophage) 1,000 mg PO BIDCC [facility] Last Admin: 02/28/18 17:00 Dose: Not Given Metoprolol Tartrate (Lopressor) 25 mg PO BIDBS [facility] Last Admin: 03/01/18 06:48 Dose: 25 mg Morphine Sulfate (Morphine) 1 mg IVP Q6H PRN PRN Reason: Pain, severe (8-10) Last Admin: 03/01/18 08:39 Dose: 1 mg Pantoprazole Sodium (Protonix Ec Tab) 40 mg PO DAILY [facility] Last Admin: 03/01/18 09:22 Dose: 40 mg - Labs Labs: 02/26/18 07:16 02/27/18 19:29 PT 10.2 SECONDS (9.7-12.2) 02/23/18 16:33 INR 0.9 02/23/18 16:33 APTT 31 SECONDS (21-34) 02/23/18 16:33 - Head Exam Head Exam: ATRAUMATIC - Eye Exam Eye Exam: Normal appearance - ENT Exam ENT Exam: Mucous Membranes Dry - Respiratory Exam Respiratory Exam: NORMAL BREATHING PATTERN - Cardiovascular Exam Cardiovascular Exam: +S1, +S2 - GI/Abdominal Exam GI & Abdominal Exam: Normal Bowel Sounds Assessment and Plan (1) Elevated tumor markers Assessment & Plan: large pelvic dermoid noted no pancreatic or intraluminal/thickening of bowel outpatient SLITTING MACHINE OPERATOR HELPER evaluation will repeat tumor markers as outpatient; if remain elevated, will refer to SLITTING MACHINE OPERATOR HELPER ONC to evaluate dermoid lesion Status: Chronic (2) Anemia Assessment & Plan: f/u anemia w/u Status: Acute
--- NOTE | 2018-03-01 18:06 | CP.PCM.PN ---
Subjective - Date & Time of Evaluation Date of Evaluation: 03/01/18 Time of Evaluation: 11:15 - Subjective Subjective: Patient seen and examined at bedside today. Patient sitting up comfortably in bed in no acute distress. Patient states she is feeling okay. Flight Software Test Engineer spoke to her about the need for a Renal Biopsy. Assessment/Plan: 1. Pleural Effusion, transudative secondary to hypoalbumenia - Pleural fluid analysis complete shows pleural total protein less than 3 g/dL; likely due to loss of protein in urine - Urine Protein over 24 hours: 6457.5mg (normal range 42-225mg) - CT Abdomen/Pelvis 02/28: Small bilateral pleural effusions and bibasilar atelectasis - Follow up with pulmonary if necessary 2. Elevated tumor markers - CT Abdomen/Pelvis 02/28: large fatty mass in pelvis consistent with a dermoid; it measures 12.2cm wide by 9.5cm AP and 9cm in height - Management per Primary Team Objective - Vital Signs/Intake and Output Vital Signs (last 24 hours): Temp Pulse Resp BP Pulse Ox 98.4 F 71 18 153/90 H 95 03/01/18 15:59 03/01/18 15:59 03/01/18 15:59 03/01/18 17:51 03/01/18 15:59 Intake and Output: 03/01/18 03/01/18 06:59 18:59 Intake Total 0 830 Balance 0 830 - Medications Medications: Current Medications Al Hydrox/Mg Hydrox/Simethicone (Maalox Plus 30 Ml) 30 ml PO Q8H PRN PRN Reason: Indigestion / Heartburn Dextrose (Dextrose 50% Inj) 0 ml IV STAT PRN; Protocol PRN Reason: Hypoglycemia Protocol Dextrose (Glutose 15) 0 gm PO ONCE PRN; Protocol PRN Reason: Hypoglycemia Protocol Docusate Sodium (Colace) 100 mg PO DAILY [facility] Last Admin: 03/01/18 09:22 Dose: 100 mg Furosemide (Lasix) 40 mg IVP BID [facility] Last Admin: 03/01/18 17:49 Dose: 40 mg Gabapentin (Neurontin) 1,600 mg PO BID [facility] Last Admin: 03/01/18 17:52 Dose: 1,600 mg Fluconazole (Diflucan Iv 100 Mg/50 Ml Ns) 50 mls @ 100 mls/hr IVPB Q24H [facility] Last Admin: 02/28/18 21:52 Dose: 100 mls/hr Insulin Human Regular (Novolin R) 0 unit SC ACHS [facility] PRN Reason: Protocol Last Admin: 03/01/18 17:53 Dose: 2 unit Metformin HCl (Glucophage) 1,000 mg PO BIDCC [facility] Last Admin: 02/28/18 17:00 Dose: Not Given Metoprolol Tartrate (Lopressor) 25 mg PO BIDBS [facility] Last Admin: 03/01/18 17:51 Dose: 25 mg Morphine Sulfate (Morphine) 1 mg IVP Q6H PRN PRN Reason: Pain, severe (8-10) Last Admin: 03/01/18 08:39 Dose: 1 mg Pantoprazole Sodium (Protonix Ec Tab) 40 mg PO DAILY [facility] Last Admin: 03/01/18 09:22 Dose: 40 mg - Labs Labs: 02/26/18 07:16 02/27/18 19:29 PT 10.2 SECONDS (9.7-12.2) 02/23/18 16:33 INR 0.9 02/23/18 16:33 APTT 31 SECONDS (21-34) 02/23/18 16:33
[2018-03-01 18:55] LABS: ANCA SCREEN NEGATIVE (NEGATIVE)
[2018-03-01 21:01] LABS: AMYLASE PLEURAL FLUID 24 U/L
[2018-03-01] MEDS: Fluconazole IV 100mg/50 ml NS 50 ML IVPB SCH (21:54)
[2018-03-02 01:28] VITALS: RESP 20; O2SAT 94
--- NOTE | 2018-03-02 02:15 | PN ---
DATE: 03/01/2018 SUBJECTIVE: The patient was seen and examined at bedside. The patient denies any new complaints. She is more anxious about her medical condition. Denies any new complaints. PHYSICAL EXAMINATION: GENERAL: A middle-aged female, lying in bed, in no acute distress. VITAL SIGNS: Blood pressure 150/90, pulse 71, respirations 18, temperature 98.4 degrees Fahrenheit, O2 saturation is 95% on room air. HEENT: Pupils are round and reactive to light and accommodation. Extraocular muscles intact. No icterus, no pallor. No oral thrush, no pharyngeal congestion. NECK: Supple. No JVD. LUNGS: Bilateral with clear breath sounds. No wheezing, no rhonchi. CVS: S1 and S2 present. Regular. ABDOMEN: Soft, nontender. Bowel sounds present. No guarding, no rigidity, no rebound tenderness noted. HEAD START TEACHER: Alert, awake, oriented x3. No focal deficits noted. EXTREMITIES: 2+ edema. MEDICATIONS: Include Maalox as needed, Colace, Diflucan 100 mg IV daily, Lasix 40 mg IV push b.i.d., Neurontin 1600 mg p.o. b.i.d., metformin 1000 mg p.o. b.i.d., Lopressor 25 mg p.o. b.i.d., morphine 1 mg IV push every 6 hours p.r.n., Protonix 40 mg daily. Accu-Cheks, glucose 216, 183, 276, 209, 267. Hepatitis C antibody positive. Urine culture growing yeast species. ASSESSMENT AND PLAN: A middle-aged female with diabetes mellitus, recent admission for pancreatitis, found to have acute biliary obstruction on liver biopsy, admitted for right foot talus fracture and anasarca including ascites and bilateral pleural effusions, status post pleural taps consistent with transudate and found to have 6.5 gm of protein and 24-hour urine, yeast urinary tract infection. We will continue with Lasix 40 mg IV b.i.d. We will repeat urine culture. Discussed with Renal and Pulmonary, awaiting for remaining immunologic workup. Repeat chest x-ray. If the patient is clinically improving, I will plan discharging the patient home and follow up as an outpatient for possible kidney biopsy as outpatient as patient has urinary tract infection at the present time and may not be able to perform the procedure secondary to infection. Discussed with the patient at length and clarified all her questions and concerns. She is agreeable to follow up with Nephrology as outpatient for possible kidney biopsy as outpatient. Discussed with Hematology. We will be recommending the patient to follow up with Shell Mold Bonding Machine Operator Oncology for followup of the left dermoid cyst. We will repeat tumor markers as outpatient as the CAT scan of the abdomen and pelvis is normal. We will continue with her current diabetic medications. Discussed with patient regarding compliance, the patient understands and is willing to follow up with all the consultants as outpatient. We will discontinue Morphine which she has been getting for pain. We will start Percocet, repeat labs in a.m. We will plan discharging the patient home in a.m. if hemodynamically stable. Cesar Lowery MD
[2018-03-02 03:59] LABS: SQUAMOUS EPITHIAL 4 /hpf (0-5); URINE BACTERIA RARE (<OCC); URINE BILIRUBIN NEGATIVE (NEGATIVE); URINE BLOOD 2+ (NEGATIVE); URINE CLARITY Hazy (Clear); URINE COLOR Yellow (YELLOW); URINE GLUCOSE (UA) 3+ mg/dL (Normal); URINE LEUKOCYTE ESTERASE 3+ Leu/uL (Negative); URINE PROTEIN 3+ mg/dL (NEGATIVE); URINE UROBILINOGEN NORMAL mg/dL (0.2-1.0)
[2018-03-02 07:35] LABS: ALBUMIN (PEP) 2.5 g/dL (3.8-4.8); ALPHA-1-GLOBULIN (PEP) 0.3 g/dL (0.2-0.3)
[2018-03-02 07:50] VITALS: PULSE 84; TEMP 97.9
[2018-03-02] MEDS: (Novolin R) Insulin Human Regular 100 units/ml vial SC SCH (07:57)
[2018-03-02 08:23] LABS: BASO # 0.1 K/uL (0.0-0.2); BASO % 1.4 % (0.0-2.0); EOS # 0.2 K/uL (0.0-0.7); EOS % 3.2 % (0.0-4.0); HEMOGLOBIN 11.1 g/dL (11.0-16.0); LYMPH # 1.6 K/uL (1.0-4.3); MEAN CELL VOLUME 92.7 fL (81.0-99.0); MEAN CORPUSCULAR HEMOGLOBIN 32.2 pg (27.0-31.0); MEAN CORPUSCULAR HGB CONC 34.7 g/dL (33.0-37.0); MEAN PLATELET VOLUME 8.6 fL (7.2-11.7); MONO # 0.6 K/uL (0.0-0.8); MONO % 8.7 % (0.0-10.0); NEUT # 4.6 K/uL (1.8-7.0); NEUT % 64.7 % (50.0-75.0); NRBC % 0.1 % (0.0-2.0); RBC 3.45 Mil/uL (3.80-5.20); RED CELL DISTRIBUTION WIDTH 13.2 % (11.5-14.5); WHITE BLOOD COUNT 7.1 K/uL (4.8-10.8)
[2018-03-02 08:41] LABS: ALB/GLOB RATIO 0.7 (1.0-2.1); ALBUMIN 2.2 g/dL (3.5-5.0); ALT/SGPT 15 U/L (9-52); AST/SGOT 33 U/L (14-36); BLOOD UREA NITROGEN 24 mg/dL (7-17); CALCIUM 7.8 mg/dl (8.6-10.4); GFR AFRICAN-AMERICAN > 60; GFR NON-AFRICAN AMERICAN > 60
[2018-03-02] MEDS: Pantoprazole 40 mg EC Tab PO SCH (09:05)
[2018-03-02 09:07] VITALS: BP 151/91
--- NOTE | 2018-03-02 09:09 | CP.PCM.PN ---
Subjective - Date & Time of Evaluation Date of Evaluation: 03/02/18 Time of Evaluation: 09:08 - Subjective Subjective: pt is seen and examined, follow up consult is dictated #[id number] Objective - Vital Signs/Intake and Output Vital Signs (last 24 hours): Temp Pulse Resp BP Pulse Ox 97.9 F 84 20 151/91 H 94 L 03/02/18 07:00 03/02/18 07:00 03/02/18 07:00 03/02/18 09:06 03/02/18 07:00 - Medications Medications: Current Medications Al Hydrox/Mg Hydrox/Simethicone (Maalox Plus 30 Ml) 30 ml PO Q8H PRN PRN Reason: Indigestion / Heartburn Dextrose (Dextrose 50% Inj) 0 ml IV STAT PRN; Protocol PRN Reason: Hypoglycemia Protocol Dextrose (Glutose 15) 0 gm PO ONCE PRN; Protocol PRN Reason: Hypoglycemia Protocol Docusate Sodium (Colace) 100 mg PO DAILY [facility] Last Admin: 03/02/18 09:05 Dose: 100 mg Furosemide (Lasix) 40 mg IVP BID [facility] Last Admin: 03/02/18 09:06 Dose: 40 mg Gabapentin (Neurontin) 1,600 mg PO BID [facility] Last Admin: 03/02/18 09:05 Dose: 1,600 mg Fluconazole (Diflucan Iv 100 Mg/50 Ml Ns) 50 mls @ 100 mls/hr IVPB Q24H [facility] Last Admin: 03/01/18 21:54 Dose: 100 mls/hr Insulin Human Regular (Novolin R) 0 unit SC ACHS [facility] PRN Reason: Protocol Last Admin: 03/02/18 07:57 Dose: 3 unit Losartan Potassium (Cozaar) 25 mg PO DAILY [facility] Metformin HCl (Glucophage) 1,000 mg PO BIDCC [facility] Last Admin: 02/28/18 17:00 Dose: Not Given Metoprolol Tartrate (Lopressor) 25 mg PO BIDBS [facility] Last Admin: 03/02/18 07:56 Dose: 25 mg Pantoprazole Sodium (Protonix Ec Tab) 40 mg PO DAILY [facility] Last Admin: 03/02/18 09:05 Dose: 40 mg - Labs Labs: 03/02/18 08:13 03/02/18 08:13 PT 10.2 SECONDS (9.7-12.2) 02/23/18 16:33 INR 0.9 02/23/18 16:33 APTT 31 SECONDS (21-34) 02/23/18 16:33
[2018-03-02 09:50] LABS: FOLATE 9.3 ng/mL
--- NOTE | 2018-03-02 10:10 | CP.PCM.PN ---
Subjective - Date & Time of Evaluation Date of Evaluation: 03/02/18 Time of Evaluation: 10:15 - Subjective Subjective: Discharge summary dictated #[id number] Objective - Vital Signs/Intake and Output Vital Signs (last 24 hours): Temp Pulse Resp BP Pulse Ox 97.9 F 84 20 151/91 H 94 L 03/02/18 07:00 03/02/18 07:00 03/02/18 07:00 03/02/18 09:06 03/02/18 07:00 - Medications Medications: Current Medications Al Hydrox/Mg Hydrox/Simethicone (Maalox Plus 30 Ml) 30 ml PO Q8H PRN PRN Reason: Indigestion / Heartburn Dextrose (Dextrose 50% Inj) 0 ml IV STAT PRN; Protocol PRN Reason: Hypoglycemia Protocol Dextrose (Glutose 15) 0 gm PO ONCE PRN; Protocol PRN Reason: Hypoglycemia Protocol Docusate Sodium (Colace) 100 mg PO DAILY [facility] Last Admin: 03/02/18 09:05 Dose: 100 mg Furosemide (Lasix) 40 mg IVP BID [facility] Last Admin: 03/02/18 09:06 Dose: 40 mg Gabapentin (Neurontin) 1,600 mg PO BID [facility] Last Admin: 03/02/18 09:05 Dose: 1,600 mg Fluconazole (Diflucan Iv 100 Mg/50 Ml Ns) 50 mls @ 100 mls/hr IVPB Q24H [facility] Last Admin: 03/01/18 21:54 Dose: 100 mls/hr Insulin Human Regular (Novolin R) 0 unit SC ACHS [facility] PRN Reason: Protocol Last Admin: 03/02/18 07:57 Dose: 3 unit Losartan Potassium (Cozaar) 25 mg PO DAILY [facility] Last Admin: 03/02/18 09:15 Dose: 25 mg Metformin HCl (Glucophage) 1,000 mg PO BIDCC [facility] Last Admin: 02/28/18 17:00 Dose: Not Given Metoprolol Tartrate (Lopressor) 25 mg PO BIDBS [facility] Last Admin: 03/02/18 07:56 Dose: 25 mg Pantoprazole Sodium (Protonix Ec Tab) 40 mg PO DAILY [facility] Last Admin: 03/02/18 09:05 Dose: 40 mg - Labs Labs: 03/02/18 08:13 03/02/18 08:13 PT 10.2 SECONDS (9.7-12.2) 02/23/18 16:33 INR 0.9 02/23/18 16:33 APTT 31 SECONDS (21-34) 02/23/18 16:33
--- NOTE | 2018-03-02 10:12 | RAD ---
HISTORY: COMPARISON: 02/23/2018. TECHNIQUE: Chest PA and lateral FINDINGS: LINES AND TUBES: None. LUNG AND PLEURA: The lungs are well inflated and clear. There is mild pulmonary venous congestion. Status post right thoracentesis, interval decrease in size of right pleural effusion. No large left pleural effusion. No pneumothorax. HEART AND MEDIASTINUM: The heart is not enlarged. The hilar and mediastinal contours are within normal limits. SKELETAL STRUCTURES: The bony structures are within normal limits for the patient's age. VISUALIZED UPPER ABDOMEN: Normal. OTHER FINDINGS: None. IMPRESSION: Status post right thoracentesis, interval decrease in size of right pleural effusion with residual small right pleural effusion.
--- NOTE | 2018-03-02 10:57 | PN ---
DATE: 03/01/2018 FOLLOWUP RENAL CONSULTATION LOCATION: Room 669, bed B. REQUESTED BY: Dr. Cesar Lowery. SUBJECTIVE: Mrs. Schroeder is a 48 years old middle-aged female with a history of longstanding diabetes for about 18 years, diabetic retinopathy status post laser treatment for retinal bleed and multiple falls, fibromyalgia, who had a recent fall with pain in the right foot and found to have a nondisplaced fracture of the right navicular and cuneiform bone. The patient has a splint. Initial Renal consult was requested for nephrotic range proteinuria and anasarca. The patient is feeling slightly better and edema is improving. Lasix was increased to 40 mg twice a day. The patient is not in acute distress. Denies any chest pain, palpitation. Denies any fever, cough. No abdominal pain. No nausea, vomiting, diarrhea. The patient does complain of swelling of the legs. PHYSICAL EXAMINATION: VITAL SIGNS: This morning as follows; blood pressure 150/90, pulse 71, respirations 18, temperature 98.4, saturation 95%. Height 5 feet 3 inches and weight is 178 pounds. GENERAL: Mrs. Schroeder is a 48 years old middle-aged female, moderately built, moderately nourished, not in acute distress. HEENT: Pupils are normal, react to light and accommodation. Conjunctivae pink. Sclerae anicteric. Tongue is moist. Trachea is midline. LUNGS: Symmetrical on both sides. Bilateral breath sounds present. Occasional basal crackles present. CVS: [place] at the fifth intercostal space, mid clavicular line. S1 and S2 audible. No murmur or gallop. ABDOMEN: Normal in appearance. Soft, tympanic. No guarding, no rigidity, no hepatosplenomegaly. The patient has a pelvic mass on the left side. No abdominal bruits. [employer]: The patient is alert, awake, oriented x3. Nonfocal neurologic exam. Cranial nerves II through XII grossly intact. Sensory and motor system is within normal limits. EXTREMITIES: No cyanosis, no clubbing. The patient has 2+ edema in both lower extremities. The patient also has a splint to the right leg. LABORATORY DATA: As of 03/01/2018; glucose 183, 276, 219 and 267, and hepatitis A antibody is negative, IgM, hepatitis B surface antigen negative. Hepatitis B core antibody is negative, hep C antibody is reactive, hepatitis C viral RNA by PCR was negative in November. As of 02/25/2018; CCP was 160 and FABIEN was not positive for 1:160 homogeneous and ANCA is negative. Garcia antibodies negative and [employer] was negative and double-stranded DNA is 2, which is also negative and C3 is 65 and C4 is 96 and serum protein electrophoresis is pending. ASSESSMENT AND PLAN: In summary, Mrs. Schroeder is a 48 years old middle-aged female with a history of longstanding diabetes, diabetic retinopathy, fibromyalgia, status post cholecystectomy and history of questionable fibroid removal from in the past with about 12 cm possible dermoid cyst in the ovary on the left side with nephrotic range proteinuria, status post fall with a fracture of the right navicular and cuneiform bone. 1. Nephrotic range proteinuria, in view of longstanding diabetes with diabetic retinopathy, most likely the proteinuria is secondary to diabetic nephropathy, cannot rule out underlying chronic glomerulonephritis and/or diabetic nephropathy. 2. Hypertension. We will add losartan 25 mg p.o. daily and titrate as needed, continue metoprolol 25 mg p.o. b.i.d., and increase the Lasix to 25 mg p.o. b.i.d. If the patient agrees, the patient may need kidney biopsy to rule out diabetic nephropathy versus chronic glomerulonephritis and/or combination and try to keep a hemoglobin A1c less than 7 and advised the patient regarding fluid restriction and better control of the sugars. The patient was given influenza on 12/23/2017, pneumococcal vaccine on 04/19/2015. We will follow with you. Thank you for allowing me to participate in your patient's care. Thad Lowery MD
[2018-03-02 11:16] LABS: ANA PATTERN HOMOGENOUS
--- NOTE | 2018-03-02 13:09 | CP.PCM.PN ---
Subjective - Date & Time of Evaluation Date of Evaluation: 03/02/18 Time of Evaluation: 10:00 - Subjective Subjective: Pulmonary Follow Up Note Patient seen and examined at bedside today. Patient sitting up comfortably in bed in no acute distress. Patient states she is feeling okay and is eager to go home. Patient aware that she must follow up with nephrology outpatient for renal biopsy to rule out Lupus. Patient has family history of Lupus (daughter) and has been told she has "the gene, but it is not active." Assessment/Plan: 1. Pleural Effusion, transudative secondary to hypoalbumenia - CXR (03/01) shows decreased right pleural effusion, improved since therapeutic thoracentesis. - Patient clear from pulmonary standpoint for discharge; Importance of follow- up with primary care doctor urged. 2. Elevated tumor markers - CT Abdomen/Pelvis 02/28: large fatty mass in pelvis consistent with a dermoid; it measures 12.2cm wide by 9.5cm AP and 9cm in height - Management per Primary Team Objective - Vital Signs/Intake and Output Vital Signs (last 24 hours): Temp Pulse Resp BP Pulse Ox 97.9 F 84 20 151/91 H 94 L 03/02/18 07:00 03/02/18 07:00 03/02/18 07:00 03/02/18 09:06 03/02/18 07:00 - Labs Labs: 03/02/18 08:13 03/02/18 08:13 PT 10.2 SECONDS (9.7-12.2) 02/23/18 16:33 INR 0.9 02/23/18 16:33 APTT 31 SECONDS (21-34) 02/23/18 16:33
--- NOTE | 2018-03-03 13:17 | DS ---
DISCHARGE DIAGNOSES: Uncontrolled diabetes mellitus; nephrotic range proteinuria; elevated tumor markers, possibly secondary to inflammation; anasarca, improving on Lasix; bilateral pleural effusions; left ovarian dermoid cyst; FABIEN positive with low C3 and C4 levels; hepatitis C antibody positive, but viral load is negative; status post fall with right foot fracture with cast in place; history of pancreatitis. HISTORY OF PRESENT ILLNESS: Ms. Schroeder is a 48-year-old female with past medical history of diabetes mellitus, asthma, fibromyalgia, restless leg syndrome, herniated disk in the neck, carpal tunnel syndrome, history of hepatitic C antibody positive but viral load negative, admitted a month ago for pancreatitis, returning to the hospital with bilateral lower extremity swelling and dyspnea on exertion and status post fall with right foot fracture. In the ED, the patient was found to be having right foot fracture and anasarca, and the patient is being admitted for further management. Today, the patient is feeling much better. Denies any headache or dizziness. Denies any chest pain, shortness of breath, or wheezing. Denies any nausea, vomiting, abdominal pain, diarrhea, or constipation. Denies any urinary complaints. Complaining of right leg pain. Denies any other neurologic complaints. PHYSICAL EXAMINATION: GENERAL: Middle-aged female, lying in bed, in no acute distress. VITAL SIGNS: Blood pressure 133/82, pulse 84, respirations 20, temperature 97.9 degrees Fahrenheit, O2 saturation 94% on room air. HEENT: Pupils equal, round, and reacting to light and accommodation. Extraocular muscles intact. No icterus. No pallor. No oral thrush. No pharyngeal congestion. NECK: Supple. No JVD. LUNGS: Bilateral vesicular breath sounds. No wheezing. No rhonchi. CARDIOVASCULAR: S1 and S2 present, regular. ABDOMEN: Soft, nontender. Bowel sounds present. No guarding. No rigidity. No rebound tenderness noted. CENTRAL NERVOUS SYSTEM: Alert, awake, oriented x3. No focal deficits noted. EXTREMITIES: Right foot with cast in place. LABORATORY DATA: Labs from this morning: WBC 7.1, hemoglobin 11.1, hematocrit 32, platelets 226. Sodium 138, potassium 4.5, chloride 104, bicarb 26, BUN 24, creatinine 0.8, glucose 282, calcium 7.8. Ferritin 136, total bilirubin less than 0.1, AST 33, ALT 15, alkaline phosphatase 219, B12 of 588, folate 9.3. UA specific gravity 1.017, pH 5, protein 3+, glucose 3+, ketones negative, blood 2+, leukocyte esterase 3+, wbc's 1034. Urine culture consistent with yeast species. Blood culture remained negative. IMAGING: CT of the abdomen and pelvis negative. CT head negative. CT of the chest consistent with right lower lobe infiltrate with bilateral pleural effusion. Carotid Doppler negative. Lower extremity Doppler negative. Echo with normal EF. Pleural fluid consistent with transudate. HOSPITAL COURSE: The patient was admitted to the hospital for right foot fracture and anasarca with dyspnea on exertion. The patient was evaluated by Podiatry. The patient had cast placed on bedside and recommended nonweightbearing and physical therapy. To be followed up with Podiatry in 10 days in his office. For anasarca, the patient was started on diuretics. Cardiac etiologies were ruled out with normal EF on echo and normal BNP level. The patient was evaluated by Cardiology. The patient was evaluated by Pulmonary for bilateral pleural effusion and underwent thoracentesis, which was consistent with transudate and no malignant cells noted. The patient was found to be having elevated tumor markers, for which the patient was evaluated by Hematology and Oncology, and repeat CT of the abdomen and pelvis done which was negative for any abnormality other than left dermoid cyst, for which the patient was already referred to [facility] on prior admission. The patient had 3+ protein in the urine and underwent 24-hour urine collection, which showed 6 almost 6.5 gm of protein and also the patient was found to be having UTI and yeast infection in the urine. The patient was found to have positive FABIEN 1:160 and low C3 and C4 levels, all the other vasculitis workup is negative. CCP is elevated with rheumatoid factor negative. The patient was evaluated by Renal who recommends renal biopsy once the patient is cleared of UTI and yeast infection and suggested can be done as an outpatient, and the patient was started on losartan, and her Lasix was increased to 40 b.i.d. For her right foot fracture, the patient was referred to subacute rehab. The patient does not want to go to rehab, instead she wants physical therapy and home care and visiting nurse services at home. As per patient's wishes, social service has made all arrangements for home PT and visiting nurse services. Advised the patient to return to the ED if any worsening symptoms. Discussed with the patient at length. She understands the need for followup with all the consultants as outpatient. Also, call the patient's primary, Dr. Leonel Arnold, and discussed the case with the primary and explained the patient's hospital course and the need for renal biopsy as outpatient and follow up with [facility] for dermoid cyst and also follow up with all the consultants as outpatient. He will be taking care of the patient as outpatient in his clinic. Discussed the same with the patient who is agreeable to following up with all the consultants. CONDITION UPON DISCHARGE: The patient is alert, awake, and oriented x3 and hemodynamically stable at the time of discharge. DISCHARGE INSTRUCTIONS: Follow up with PMD. Follow up with Pulmonary. Follow up with GI. Follow up with Oncology. Follow up with [facility]. Follow up with Renal. Follow up with Podiatry. DISCHARGE DIET: Low-sodium, low-cholesterol, 1800-calorie ADA, heart healthy, renal diet. Fluid restriction to 1200 mL an hour a day. DISCHARGE MEDICATIONS: Augmentin 875 mg p.o. b.i.d. for 5 days, Diflucan 100 mg p.o. daily for 7 days, Lasix 40 mg p.o. b.i.d., advised to take only insulin 10 units at bedtime, Cozaar 25 mg p.o. daily, metformin 1000 mg p.o. b.i.d., Protonix 40 mg p.o. daily, Neurontin 1600 mg p.o. b.i.d. Cesar Lowery MD
--- NOTE | 2018-03-05 09:46 | PN ---
DATE: 03/02/2018 LOCATION: The patient is located in room 669, bed B. REQUESTING PHYSICIAN: Cesar Lowery MD REASON FOR FOLLOWUP: Hypertension, diabetic retinopathy, diabetes, massive proteinuria, edema. SUBJECTIVE: The patient is a 48-year-old middle-aged female with a history of diabetes for 18 years, questionable fibromyalgia, multiple falls, status post recent fall with pain in the right ankle, found to have nondisplaced fracture of the navicular and cuneiform bone on splint. She was also admitted with shortness of breath and anasarca. The patient was found to have proteinuria of more than 6 gm. The patient was started on Lasix and increased to 40 mg b.i.d. The patient is feeling slightly better, swelling is improving. No chest pain. No palpitations. No fever. No cough. Less edema. No nausea, vomiting, or diarrhea. PHYSICAL EXAMINATION: VITAL SIGNS: As follows: This morning blood pressure 153/90, pulse is 71, respirations 18, temperature 98.4, and oxygen saturation 95%. Height 5 feet and 3 inches, weight is 178 pounds. GENERAL: The patient is a 48-year-old middle-aged female, well built, well nourished, not in distress. HEENT: Pupils are normal and reactive to light and accommodation. Conjunctivae pink. Sclerae anicteric. Tongue is moist. Trachea is midline. LUNGS: Symmetric on both sides. Bilateral breath sounds present. Bilateral basal crackles present. CVS: [place] at the fifth intercostal space, midclavicular line. S1 and S2 audible. No murmur or gallop. ABDOMEN: Normal in appearance, soft, tympanic. No guarding. No rigidity. No hepatosplenomegaly. [employer]: The patient is alert, awake, and oriented x3. Nonfocal neuro examination. Cranial nerves II through XII grossly intact. Sensory and motor system is within normal limits. EXTREMITIES: No cyanosis. No clubbing. The patient has 2+ edema in the lower left lower extremity and also right lower extremity. The patient also has a splint to the right leg. MEDICATIONS: Reviewed. Protonix 40 mg p.o. daily, metformin 1000 mg p.o. b.i.d., insulin 10 units subcu at bedtime, Neurontin 1600 mg p.o. b.i.d., Lasix 40 mg p.o. b.i.d., and metoprolol 25 mg p.o. b.i.d. LABORATORY DATA: Include as follows, as of 03/02/2018, WBC 7.1, hemoglobin 11.1, hematocrit 32, and platelets are 226. Sodium 138, potassium 4.5, chloride 104, CO2 of 26, BUN 24, creatinine 0.8, glucose 261, calcium 7.8, ferritin 136, total bilirubin 0.1, AST 33, ALT 15, alkaline phosphatase 219, total protein 5.3, albumin 2.2, B12 is 588, and folic acid is 9.3. Urinalysis, yellow, hazy, pH 5, specific gravity 1.017, protein 3+, glucose 3+, ketones negative, blood 2+, nitrites negative, bilirubin negative, urobilinogen normal, leukocyte esterase 3+ and wbc 1034, rbc 28, bacteria rare. IMPRESSION AND PLAN: In summary, the patient is a 48-year-old middle-aged female with a history of longstanding diabetes, diabetic retinopathy, status post laser treatment with proteinuria, being treated for urinary tract infection and also anasarca, and fracture of the right cuneiform and navicular bone, nondisplaced fracture with splint with high blood pressure. 1. Nephrotic range of proteinuria, most likely secondary to diabetic nephropathy, cannot rule out underlying chronic glomerulonephritis in view of positive FABIEN 1:160 homogenous and low cannot rule out underlying lupus nephritis or connective tissue disorder. 2. Hypertension, blood pressure is still high, continue metoprolol. We will add Cozaar 25 mg p.o. daily and titrate as needed as an outpatient. 3. Uncontrolled diabetes. 4. Status post fall, fracture of the right navicular and cuneiform bone. Continue splint and follow up with PMD, and the patient will be followed in clinic in 3 to 4 weeks. We will repeat the urinalysis at that time, and we will consider kidney biopsy if patient agrees. We will follow with you. Restrict fluids to 1500 mL/day. Thank you for allowing me to participate in the your patient's care. Thad Lowery MD [facility] # [id number]
--- NOTE | 2018-03-05 14:22 | PCM.HF ---
Heart Failure Core Measure - Heart Failure Ejection Fraction: 40 % or Greater JE Inhibitor Prescribed: No Contraindication/Reason for not providing: ON ARB Beta-Dante Prescribed: None Contraindication/Reason for not providing: EF > 40 Angiotensin II Receptor Dante Prescribed: Yes AnticoagulationTherapy for Atrial Fibrillation/Atrialflutter: No Contraindication/Reason for not providing: NO AFIB Aldosterone Antagonist Prescribed: No Contraindication/Reason for not providing: EF > 40 Hydralazine Nitrate Prescribed: No Contraindication/Reason for not providing: EF > 40 Implantable Cardioverter Defibrillator Therapy: No Contraindication/Reason for not providing: EF > 40 Cardiac Resynchronization Therapy Prescribed: No Contraindication/Reason for not providing: EF > 40 - Follow up Will be discharged to: Home Follow Up Date (must be within 7 days from discharge): 03/07/18 Follow Up Time: 09:00
== END 2018-03-02 12:30 | disposition home or self-care (01) | DRG 127 ==
LOC: C.ER 14:37 → C.9E 20:44 → C.6T 22:10
PROVIDERS: ADMIT Internal Medicine; ATTEND Internal Medicine
PROC: 0W993ZZ Drainage of Right Pleural Cavity, Percutaneous Approach (ICD-10-PCS; principal; 2018-02-27)
DX: I11.0 Hypertensive heart disease with heart failure (principal); J98.11 Atelectasis; K61.0 Anal abscess; E87.5 Hyperkalemia; E11.40 Type 2 diabetes mellitus with diabetic neuropathy, unspecified; E11.319 Type 2 diabetes mellitus with unspecified diabetic retinopathy without macular edema; E11.65 Type 2 diabetes mellitus with hyperglycemia; I25.10 Atherosclerotic heart disease of native coronary artery without angina pectoris; I50.9 Heart failure, unspecified; G25.81 Restless legs syndrome; J45.909 Unspecified asthma, uncomplicated; R29.6 Repeated falls; F17.210 Nicotine dependence, cigarettes, uncomplicated